=== PATIENT | female | born 1955 | race Caucasian/White ===

== ENCOUNTER → 2018-01-22 12:26 | Outpatient (CLI) | payer MEDICARE, MEDICAID, SELFPAY ==
[2018-01-22 13:21] LABS: Hematocrit 46.8 % (36-46); Hemoglobin 15.6 g/dL (12.0-16.0); Mean Corpuscular HGB Conc 33.4 % (30-36); Mean Corpuscular Hemoglobin 28.4 PG (26-34); Mean Corpuscular Volume 85.2 fL (80-100); Platelet Count 492 X10^3/uL (150-400); Red Blood Cell Count 5.49 X10^6/uL (4.0-5.2); Red Cell Distribution Width 13.9 % (11.6-14.8)
[2018-01-22 13:27] LABS: Add Manual Diff / Slide Review YES
[2018-01-22 13:44] LABS: White Blood Cell Count 31.9 X10^3/uL (4.5-11.0)
[2018-01-22 13:47] LABS: Neutrophils Absolute Manual 26158 /uL (3000-5900); Total Cells Counted 100
[2018-01-22 13:48] LABS: Morphology Comment Normal Morphology
[2018-01-22 13:56] LABS: Alanine Aminotransferase 48 IU/L (9-52); Albumin Globulin Ratio 0.8 (1.0-2.8); Alkaline Phosphatase 120 U/L (38-126); Amylase 32 U/L (30-110); Aspartate Aminotransferase 46 IU/L (14-36); BUN Creatinine Ratio 30.9 (6-22); Bilirubin Total 0.5 mg/dL (0.2-1.3); Calcium 9.2 mg/dL (8.4-10.2); Estimated Glomerular Filt Rate 50.3 mL/min (>60); Globulin 3.6 g/dL (1.7-4.1); Glucose 105 mg/dL (80-110); HDL Cholesterol 31 mg/dL (40-60); Lipase 93 U/L (23-300); Potassium 3.8 mmol/L (3.4-5.1); Sodium 130 mmol/L (137-145); Total Protein 6.6 g/dL (6.3-8.2); Triglycerides 94 mg/dL (35-150)
[2018-01-22 14:04] LABS: HEMOLYSIS < 15 (0-50)
[2018-01-22 14:08] LABS: Cholesterol < 50 mg/dL (140-199); LDL Cholesterol Calculated 0 mg/dL (<100)
== END ==
PROVIDERS: Visit Provider Physician Assistant
DX: G43.A0 Cyclical vomiting, in migraine, not intractable (principal); I10 Essential (primary) hypertension; L03.031 Cellulitis of right toe
CPT/HCPCS: 36415; 80053; 80061; 82150; 83690; 85025; 85730

== ENCOUNTER 2018-01-27 14:45 | Emergency (ER) | payer MEDICARE, MEDICAID, SELFPAY ==
[2018-01-22 21:00] VITALS: BMI 14.1
[2018-01-27 14:58] VITALS: BP 99/78; PULSE 95; RESP 20; TEMP 36.9; O2SAT 96; BMI 14.1
--- NOTE | 2018-01-27 15:04 | ED.ABDPAIN ---
HPI - Abdominal Pain General Chief Complaint: Abdominal Pain Stated Complaint: nausea/diarrhea Time Seen by Provider: 01/27/18 14:51 Source: patient Mode of arrival: wheelchair Limitations: no limitations History of Present Illness HPI narrative: 62-year-old female was just discharged from the hospital 2 days ago after being admitted for cellulitis. Is currently on Levaquin. She states that for several weeks now she has had GI problems to include decreased appetite, vomiting and abdominal pain. This was addressed somewhat in the discharge summary however it does state that while the patient was here she was tolerating oral intake. Patient states that she is here because this morning she had breakfast which states that made her stomach hurt which she describes as ???being hungry ???she states that she cannot eat more because it then makes her nauseous and then sometimes throws up. Related Data Home Medications Medication Instructions Recorded Confirmed phenytoin sodium extended 200 mg PO QDAY #0 05/30/17 01/22/18 [Dilantin Extended] aspirin 325 mg PO QDAY #0 11/05/17 01/22/18 bisacodyl 10 mg MN PRN PRN #0 12/06/17 01/22/18 bisacodyl [Fleet Laxative] 10 mg PO PRN PRN #0 12/06/17 01/22/18 docusate sodium 100 mg PO Q12HP PRN #0 12/06/17 01/22/18 magnesium hydroxide [Milk Of 30 ml PO PRN PRN #0 12/06/17 01/22/18 Magnesia Concentrated] nicotine (polacrilex) [Nicorette] 4 mg PO Q2HP PRN #0 12/06/17 01/22/18 sennosides [senna] 8.6 mg PO Q12HP #0 12/06/17 01/22/18 sodium phosphates [Fleet Enema] 1 ea MN PRN PRN #0 12/06/17 01/22/18 hydrocodone-acetaminophen [Edmonds] 1 tab PO Q4HP PRN 01/22/18 01/22/18 lorazepam [Ativan] 0.5 mg PO TIDP PRN 01/22/18 01/22/18 metoprolol succinate 200 mg PO DAILY 01/22/18 01/22/18 Previous Rx's Medication Instructions Recorded atorvastatin [Lipitor] 20 mg PO HS #30 tab 12/08/17 furosemide [Lasix] 20 mg PO QDAY #30 tab 12/08/17 prednisone 40 mg PO QDAY #90 tab 12/08/17 tiotropium bromide [Spiriva with 18 mcg INH QDAY #30 carolynn 12/08/17 HandiHaler] warfarin [Coumadin] 1 mg PO QDAY@1700 #30 tab 12/08/17 clopidogrel [Plavix] 75 mg PO DAILY #30 tab 01/25/18 levofloxacin 500 mg PO Q24H 7 Days #7 tab 01/25/18 ondansetron [Zofran ODT] 4 mg PO Q6H PRN #7 tab 01/27/18 Allergies Allergy/AdvReac Type Severity Reaction Status Date / Time Sulfa (Sulfonamide Allergy Intermediate PRICKLY Verified 01/22/18 15:07 Antibiotics) FEELING ON [SULFA (SULFONAMIDE HER HEAD ANTIBIOTICS)] Penicillins [PENICILLINS] Allergy Unknown RASH Verified 01/22/18 15:07 ANTIBIOTICS Allergy Mild PRICKLY Uncoded 01/22/18 15:07 FEELING ON HER HEAD Review of Systems Constitutional Denies chills, Denies fever(s), Denies lethargy and Denies weakness Gastrointestinal Gastrointestinal: Reports abdominal pain, Denies melena, Denies constipation, Denies heartburn, Reports nausea and Reports vomiting Genitourinary Denies dysuria Musculoskeletal Comments: Infection to her residual left leg has improved Does have pain to her right foot with secondary to the known infection there Neurologic Denies weakness [facility] Medical History 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 Mother No problems noted. Social History household members: spouse lives independently: Yes caregiver/support person: Yes other: She says she quit smoking today Smoking Status: Current every day smoker Exam Initial Vital Signs Initial Vital Signs: Vital Signs Temperature 98.5 F 01/27/18 14:58 Pulse Rate 95 H 01/27/18 14:58 Respiratory Rate 20 01/27/18 14:58 Blood Pressure 99/78 01/27/18 14:58 Pulse Oximetry 96 01/27/18 14:58 Resp Effort & Inspection: normal respiratory effort, able to speak in complete sentences, no respiratory distress and no use of accessory muscles Auscultation: clear to auscultation bilaterally, no rales, no rhonchi and no wheezes Cardio Rate: regular rate Rhythm: regular rhythm Heart Sounds: no click, no gallops, no murmurs and no rubs Pulses: normal peripheral pulses GI Inspection: non-distended Palpation: soft, no hepatosplenomegaly, No guarding, No pulsatile mass and No tender Auscultation: normal bowel sounds Skin Other: Distal portion of left residual limb looks well. Nontender. No redness Patient with bandage over her right toes with redness of the surrounding skin consistent with her cellulitis history Neuro General: alert, awake and oriented x3 Cognition: normal cognition Speech: speech normal Extrem Other: Left-sided [id number] amputation Course Orders Ordered: ED Orders 01/27/18 15:18 Complete Blood Count AUTO DIFF Stat Comprehensive Metabolic Panel Stat Lipase Stat Sodium Chloride (Normal Saline 0.9%) 1,000 mls @ 150 mls/hr IV CONT SHE Last Admin: 01/27/18 15:26 Dose: 150 mls/hr Ondansetron HCl (Zofran) 4 mg IV NOW PRN PRN Reason: Nausea And Vomiting Vital Signs - 8 hr 01/27/18 14:58 01/27/18 15:31 01/27/18 16:35 Temperature 98.5 F Pulse Rate 95 H 101 H 94 H Respiratory Rate 20 20 23 Blood Pressure 99/78 Blood Pressure [Right Arm] 103/75 102/74 Pulse Oximetry 96 100 96 01/27/18 17:24 Temperature Pulse Rate 94 H Respiratory Rate 10 L Blood Pressure Blood Pressure [Right Arm] 90/61 Pulse Oximetry 97 MDM - Abdominal Pain Lab Data Attestation: I reviewed the patient's lab results. Result diagrams: 01/27/18 15:18 01/27/18 15:18 Lab Results 05/20/18 05/20/18 Range/Units 15:18 15:18 WBC 18.0 H (4.5-11.0) X10^3/uL RBC 4.61 (4.0-5.2) X10^6/uL Hgb 13.4 (12.0-16.0) g/dL Hct 39.1 (36-46) % MCV 84.9 (80-100) fL MCH 29.1 (26-34) PG MCHC 34.3 (30-36) % RDW 14.2 (11.6-14.8) % Plt Count 531 H (150-400) X10^3/uL Neut % (Auto) 76.6 H (50-75) % Lymph % (Auto) 15.7 L (25-40) % [place] % (Auto) 6.4 (3-14) % Eos % (Auto) 0.6 L (2-4) % Baso % (Auto) 0.7 (0-2) % Neut # (Auto) 99005 H (5401-7389) /uL Sodium 133 L (137-145) mmol/L Potassium 4.2 (3.4-5.1) mmol/L Chloride 102.0 (98-107) mmol/L Carbon Dioxide 23.0 (22-32) mmol/L BUN 11.0 (7-17) mg/dL Creatinine 0.50 L (0.52-1.04) mg/dL Estimated GFR > 60.0 (>60) mL/min BUN/Creatinine Ratio 22.0 (6-22) Glucose 89 (80-110) mg/dL Calcium 8.0 L (8.4-10.2) mg/dL Total Bilirubin 0.5 (0.2-1.3) mg/dL AST 45 H (14-36) IU/L ALT 40 (9-52) IU/L Alkaline Phosphatase 120 (38-126) U/L Total Protein 6.1 L (6.3-8.2) g/dL Albumin 2.6 L (3.5-5.0) g/dL Globulin 3.5 (1.7-4.1) g/dL Albumin/Globulin Ratio 0.7 L (1.0-2.8) Lipase 106 (23-300) U/L [facility] Narrative Medical decision making narrative: White blood cell count improving. Patient currently on Levaquin. The rest of her labs are either improved for the same as her recent hospital admission. Patient's heart rate improved with fluids. Doubt sepsis. Patient is not currently on any anti nausea medication. I suspect that her GI symptoms are not acute in nature. She has also been drinking ensures which I am uncertain if she is replacing her meals with these or if she is doing this in addition to her meals. We discussed the importance of eating a regular diet as well as doing the insured. We discussed the importance of continuing her antibiotics because of the infection that she has. Will send home with a anti nausea medication. She has a follow-up with her primary doctor on Sunday this week. She was given return precautions. She expressed understanding and agreement with plan Discharge Plan Departure Patient Disposition: Home, Self-Care Clinical Impression: Nausea Instructions: DI for Nausea -- Adult Activity Restrictions/Additional Instructions: Continue all of your medications as instructed. Call your primary doctor tomorrow to discuss her symptoms and to confirm your appointment time for Sunday. Make sure you are eating a regular diet along with the ensure as a meal supplement. Return to the emergency department for any new or worsening symptoms Prescriptions: New ondansetron [Zofran ODT] 4 mg tablet,disintegrating 4 mg PO Q6H PRN (Reason: nausea and vomiting) Qty: 7 RF: 0 No Action phenytoin sodium extended [Dilantin Extended] 100 MG capsule 200 mg PO QDAY Qty: 0 RF: 0 aspirin 325 MG tablet,delayed release (DR/EC) 325 mg PO QDAY Qty: 0 RF: 0 nicotine (polacrilex) [Nicorette] 4 MG gum 4 mg PO Q2HP PRN (Reason: Smoking Cessation) Qty: 0 RF: 0 sennosides [senna] 8.6 MG tablet 8.6 mg PO Q12HP Qty: 0 RF: 0 docusate sodium 100 MG tablet 100 mg PO Q12HP PRN (Reason: Constipation) Qty: 0 RF: 0 sodium phosphates [Fleet Enema] 133 ML enema 1 ea MN PRN PRN (Reason: Constipation) Qty: 0 RF: 0 bisacodyl [Fleet Laxative] 5 MG tablet,delayed release (DR/EC) 10 mg PO PRN PRN (Reason: Constipation) Qty: 0 RF: 0 bisacodyl 10 MG suppository 10 mg MN PRN PRN (Reason: Constipation) Qty: 0 RF: 0 magnesium hydroxide [Milk Of Magnesia Concentrated] 2,400 MG/10 ML suspension 30 ml PO PRN PRN (Reason: Constipation) Qty: 0 RF: 0 atorvastatin [Lipitor] 20 MG tablet 20 mg PO HS Qty: 30 RF: 0 furosemide [Lasix] 20 MG tablet 20 mg PO QDAY Qty: 30 RF: 0 warfarin [Coumadin] 1 MG tablet 1 mg PO QDAY@1700 Qty: 30 RF: 0 tiotropium bromide [Spiriva with HandiHaler] 18 MCG capsule, w/inhalation device 18 mcg INH QDAY Qty: 30 RF: 0 prednisone 10 MG tablet 40 mg PO QDAY Qty: 90 RF: 0 metoprolol succinate 50 mg tablet extended release 24 hr 200 mg PO DAILY RF: 0 hydrocodone-acetaminophen [Edmonds] 5 MG/325 MG tablet 1 tab PO Q4HP PRN (Reason: Pain, Moderate) RF: 0 lorazepam [Ativan] 0.5 MG tablet 0.5 mg PO TIDP PRN (Reason: Anxiety) RF: 0 clopidogrel [Plavix] 75 mg Tablet 75 mg PO DAILY Qty: 30 RF: 0 levofloxacin 500 mg tablet 500 mg PO Q24H 7 Days Qty: 7 RF: 0
[2018-01-27] MEDS: SODIUM CHLORIDE 0.9% 1,000 ML 150 ML IV (15:26)
[2018-01-27 15:28] LABS: Add Manual Diff / Slide Review NO; Basophils Percent Auto 0.7 % (0-2); Eosinophils Percent Auto 0.6 % (2-4); Hematocrit 39.1 % (36-46); Hemoglobin 13.4 g/dL (12.0-16.0); Lymphocytes Percent Auto 15.7 % (25-40); Mean Corpuscular HGB Conc 34.3 % (30-36); Mean Corpuscular Hemoglobin 29.1 PG (26-34); Mean Corpuscular Volume 84.9 fL (80-100); Monocytes Percent Auto 6.4 % (3-14); Neutrophils Absolute Auto 13800 /uL (3000-5900); Neutrophils Percent Auto 76.6 % (50-75); Platelet Count 531 X10^3/uL (150-400); Red Blood Cell Count 4.61 X10^6/uL (4.0-5.2); Red Cell Distribution Width 14.2 % (11.6-14.8)
[2018-01-27 15:31] VITALS: BP 103/75; PULSE 101; RESP 20; O2SAT 100
[2018-01-27 15:42] LABS: Alanine Aminotransferase 40 IU/L (9-52); Albumin 2.6 g/dL (3.5-5.0); Albumin Globulin Ratio 0.7 (1.0-2.8); Alkaline Phosphatase 120 U/L (38-126); Aspartate Aminotransferase 45 IU/L (14-36); Bilirubin Total 0.5 mg/dL (0.2-1.3); Estimated Glomerular Filt Rate > 60.0 mL/min (>60); Globulin 3.5 g/dL (1.7-4.1); Glucose 89 mg/dL (80-110); HEMOLYSIS 68 (0-50); Lipase 106 U/L (23-300); Potassium 4.2 mmol/L (3.4-5.1); Sodium 133 mmol/L (137-145); Total Protein 6.1 g/dL (6.3-8.2)
--- NOTE | 2018-01-27 15:46 | PC.NURSE ---
pt reports, after eating she gets nausea and vomiting, she gets hungry, drinks ensure then she would have diarrhea. denies fever. symptoms treated with tums at home denies abdominal pain at this time, denies chest pain, denies uti sxs, has chronic congested cough, denies furthur smoking. hx of left above the knee amputation , last november 12-. due to poor circulation from smoking per pt. hx of cva with left arm deficit. pt do report pain right foot with cellulitis. right foot with redness and swelling, arrived with clean and intact dressing.
[2018-01-27 16:35] VITALS: BP 102/74; PULSE 94; RESP 23; O2SAT 96
--- NOTE | 2018-01-27 17:17 | PC.NURSE ---
PT GIVEN WATER FOR PO CHALLENGE.
[2018-01-27 17:24] VITALS: BP 90/61; PULSE 94; RESP 10; O2SAT 97
== END 2018-01-27 18:02 | disposition home or self-care (01) ==
PROVIDERS: Emergency Provider Emergency Medicine; Family Provider Physician Assistant; PCP Physician Assistant
DX: R11.2 Nausea with vomiting, unspecified (principal)
CPT/HCPCS: 36591; 80053; 83690; 85025; 96360; 96361; 99283; 99284

== ENCOUNTER 2018-01-30 08:21 | Emergency (ER) | payer MEDICARE, MEDICAID, SELFPAY ==
[2018-01-22 21:00] VITALS: BMI 14.1
[2018-01-30] VITALS (8 sets, daily range): BP systolic 86–111; BP diastolic 52–70; PULSE 102–118; RESP 16–26; TEMP 36.6; O2SAT 96–100
--- NOTE | 2018-01-30 09:02 | ED.SKABFB ---
HPI - Skin/Abscess/Foreign Bdy General Chief complaint: Skin/Abscess/Foreign Body Stated complaint: PT STATES CELLULITIS IN RIGHT 2ND TOE Time Seen by Provider: 01/30/18 08:51 History of Present Illness HPI narrative: [address] Rhonda Iverson presenting with complaints of R 2nd toe cellulitis worsening over last 3 days with increased pain. Denies associated fever. Patient has been given 7 days of levaquin, and she is on day 4. She is a chronic smoker and has been being treated with zofran for episodes of nausea. Today she would also like a refill. Related Data Home Medications Medication Instructions Recorded Confirmed phenytoin sodium extended 200 mg PO QDAY #0 05/30/17 01/22/18 [Dilantin Extended] aspirin 325 mg PO QDAY #0 11/05/17 01/22/18 bisacodyl 10 mg CO PRN PRN #0 12/06/17 01/22/18 bisacodyl [Fleet Laxative] 10 mg PO PRN PRN #0 12/06/17 01/22/18 docusate sodium 100 mg PO Q12HP PRN #0 12/06/17 01/22/18 magnesium hydroxide [Milk Of 30 ml PO PRN PRN #0 12/06/17 01/22/18 Magnesia Concentrated] nicotine (polacrilex) [Nicorette] 4 mg PO Q2HP PRN #0 12/06/17 01/22/18 sennosides [senna] 8.6 mg PO Q12HP #0 12/06/17 01/22/18 sodium phosphates [Fleet Enema] 1 ea CO PRN PRN #0 12/06/17 01/22/18 hydrocodone-acetaminophen [Dorr] 1 tab PO Q4HP PRN 01/22/18 01/22/18 lorazepam [Ativan] 0.5 mg PO TIDP PRN 01/22/18 01/22/18 metoprolol succinate 200 mg PO DAILY 01/22/18 01/22/18 Previous Rx's Medication Instructions Recorded atorvastatin [Lipitor] 20 mg PO HS #30 tab 12/08/17 furosemide [Lasix] 20 mg PO QDAY #30 tab 12/08/17 prednisone 40 mg PO QDAY #90 tab 12/08/17 tiotropium bromide [Spiriva with 18 mcg INH QDAY #30 carolynn 12/08/17 HandiHaler] warfarin [Coumadin] 1 mg PO QDAY@1700 #30 tab 12/08/17 clopidogrel [Plavix] 75 mg PO DAILY #30 tab 01/25/18 levofloxacin 500 mg PO Q24H 7 Days #7 tab 01/25/18 ondansetron [Zofran ODT] 4 mg PO Q6H PRN #7 tab 01/27/18 clindamycin HCl 300 mg PO TID 7 Days #21 cap 01/30/18 ondansetron HCl [Zofran] 4 mg PO Q6H PRN #10 tab 01/30/18 Allergies Allergy/AdvReac Type Severity Reaction Status Date / Time Sulfa (Sulfonamide Allergy Intermediate PRICKLY Verified 01/30/18 08:41 Antibiotics) FEELING ON [SULFA (SULFONAMIDE HER HEAD ANTIBIOTICS)] Penicillins [PENICILLINS] Allergy Unknown RASH Verified 01/30/18 08:41 ANTIBIOTICS Allergy Mild PRICKLY Uncoded 01/30/18 08:41 FEELING ON HER HEAD Review of Systems Review of Systems All systems reviewed & are unremarkable except as noted in HPI and below Constitutional Denies chills, Denies fever(s), Denies lethargy and Denies weakness Cardiovascular Denies chest pain, Denies irregular heart rhythm, Denies lightheadedness, Denies palpitations, Denies dyspnea, Denies dyspnea on exertion and Denies orthopnea Respiratory Denies cough, Denies dyspnea, Denies dyspnea on exertion and Denies wheezing Gastrointestinal Gastrointestinal: Denies abdominal pain, Denies change in bowel habits, Denies diarrhea, Reports nausea and Denies vomiting Integumentary/Breasts Reports sores and Reports wounds Neurologic Denies weakness Endocrine Denies palpitations Hematologic/Lymphatic Denies easy bruising Allergic/Immunologic Denies wheezing [facility] Medical History 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 Mother No problems noted. Social History household members: spouse lives independently: Yes caregiver/support person: Yes other: She says she quit smoking today Smoking Status: Current every day smoker Exam Initial Vital Signs Initial Vital Signs: Vital Signs Temperature 97.8 F 01/30/18 08:37 Pulse Rate 118 H 01/30/18 08:37 Respiratory Rate 16 01/30/18 08:37 Blood Pressure 111/65 01/30/18 08:37 Pulse Oximetry 96 01/30/18 08:37 Const General: cooperative Nutritional Appearance: underweight Orientation: alert, awake, oriented x3 and not confused Chest Chest: normal inspection of the chest Resp Effort & Inspection: normal respiratory effort, able to speak in complete sentences, no respiratory distress and no use of accessory muscles Auscultation: no rales, no rhonchi, no wheezes and rub present Tactile Fremitus: tactile fremitus present Cardio Rate: regular rate and tachycardic Rhythm: regular rhythm Heart Sounds: no click, no gallops, no murmurs and no rubs Pulses: other (4+ pitting edema R LE. Patient as L AKA; ) Skin General: No jaundice and No petechiae Other: 2nd toe on R foot swollen and erythematous. Tenderness on toe and distal foot. Patient has area of erythema on lateral 5th toe. No fluctuance, or drainable abscess on exam. Neuro General: alert, oriented x3, gait normal and no focal motor deficits Speech: speech normal Course Orders Ordered: ED Orders 01/30/18 09:30 Basic Metabolic Panel Stat Bilirubin Total Stat Complete Blood Count AUTO DIFF Stat Lactate (Lactic Acid) Stat Procalcitonin Stat 01/30/18 09:54 Blood Culture Stat Acetaminophen (Tylenol) 650 mg PO NOW ONE Stop: 01/30/18 11:18 Sodium Chloride (Normal Saline 0.9%) 500 mls @ 1,000 mls/hr IV BOLUS PRN PRN Reason: Fluid replacement Last Infusion: 01/30/18 10:24 Dose: 0 mls/hr Infusion: 01/30/18 10:14 Dose: 1,000 mls/hr Infusion: 01/30/18 10:00 Dose: 0 mls/hr Admin: 05/23/18 09:35 Dose: 1,000 mls/hr Discontinued Medications Clindamycin HCl (Cleocin) 300 mg PO NOW ONE Stop: 01/30/18 11:10 Vital Signs - 8 hr 01/30/18 08:37 01/30/18 09:10 01/30/18 09:30 Temperature 97.8 F Pulse Rate 118 H 107 H Respiratory Rate 16 20 Blood Pressure 111/65 Blood Pressure [Right Arm] 86/52 L Pulse Oximetry 96 96 01/30/18 09:39 01/30/18 10:00 01/30/18 10:15 Temperature Pulse Rate 106 H Respiratory Rate Blood Pressure Blood Pressure [Right Arm] 92/59 L 96/70 Pulse Oximetry 96 MDM - Skin/Abscess/Foreign Bdy Medical Records Attestation: I reviewed the patient's medical records. Lab Data Attestation: I reviewed the patient's lab results. Labs reviewed. No acute abnormalities requiring urgent intervention at this time. Result diagrams: 01/30/18 09:30 01/30/18 09:30 Lab Results 01/30/18 01/30/18 01/30/18 Range/Units 09:30 09:30 09:30 WBC 11.8 H (4.5-11.0) X10^3/uL RBC 4.24 (4.0-5.2) X10^6/uL Hgb 12.4 (12.0-16.0) g/dL Hct 36.6 (36-46) % MCV 86.4 (80-100) fL MCH 29.1 (26-34) PG MCHC 33.7 (30-36) % RDW 14.7 (11.6-14.8) % Plt Count 661 H (150-400) X10^3/uL Neut % (Auto) 72.0 (50-75) % Lymph % (Auto) 17.4 L (25-40) % [place] % (Auto) 8.7 (3-14) % Eos % (Auto) 0.9 L (2-4) % Baso % (Auto) 1.0 (0-2) % Neut # (Auto) 8500 H (2084-9097) /uL Sodium 137 (137-145) mmol/L Potassium 4.0 (3.4-5.1) mmol/L Chloride 102.0 (98-107) mmol/L Carbon Dioxide 27.0 (22-32) mmol/L BUN 12.0 (7-17) mg/dL Creatinine 0.50 L (0.52-1.04) mg/dL Estimated GFR > 60.0 (>60) mL/min BUN/Creatinine Ratio 24.0 H (6-22) Glucose 97 (80-110) mg/dL Lactate (0.7-2.1) mmol/L Calcium 8.3 L (8.4-10.2) mg/dL Total Bilirubin 0.3 (0.2-1.3) mg/dL Procalcitonin < 0.05 (<0.5) ng/mL 01/30/18 Range/Units 09:30 WBC (4.5-11.0) X10^3/uL RBC (4.0-5.2) X10^6/uL Hgb (12.0-16.0) g/dL Hct (36-46) % MCV (80-100) fL MCH (26-34) PG MCHC (30-36) % RDW (11.6-14.8) % Plt Count (150-400) X10^3/uL Neut % (Auto) (50-75) % Lymph % (Auto) (25-40) % [place] % (Auto) (3-14) % Eos % (Auto) (2-4) % Baso % (Auto) (0-2) % Neut # (Auto) (7501-4001) /uL Sodium (137-145) mmol/L Potassium (3.4-5.1) mmol/L Chloride (98-107) mmol/L Carbon Dioxide (22-32) mmol/L BUN (7-17) mg/dL Creatinine (0.52-1.04) mg/dL Estimated GFR (>60) mL/min BUN/Creatinine Ratio (6-22) Glucose (80-110) mg/dL Lactate 1.3 (0.7-2.1) mmol/L Calcium (8.4-10.2) mg/dL Total Bilirubin (0.2-1.3) mg/dL Procalcitonin (<0.5) ng/mL [facility] Narrative Medical decision making narrative: Patient with PVD with recurrent cellutitis on R 2nd toe here for worsening pain despite taking antibiotics. Screened for sepsis, labs negative for elevated WBC. Remaining labs at patient's baseline. Recent XR of foot on 01/24 does not need repeating today. Patient stable for continued outpatient management. Should follow up with wound clinic as appointed. Due to patient's allergy profile, will add clindamycin for continued outpatient management. Patient stable for discharge. Discharge Plan Departure Patient Disposition: Home, Self-Care Clinical Impression: Cellulitis of toe of right foot, Nausea Instructions: Cellulitis Activity Restrictions/Additional Instructions: Take all antibiotics as prescribed to completion. Follow up as planned. Prescriptions: New clindamycin HCl 300 mg capsule 300 mg PO TID 7 Days Qty: 21 RF: 0 ondansetron HCl [Zofran] 4 mg tablet 4 mg PO Q6H PRN (Reason: nausea) Qty: 10 RF: 0 No Action phenytoin sodium extended [Dilantin Extended] 100 MG capsule 200 mg PO QDAY Qty: 0 RF: 0 aspirin 325 MG tablet,delayed release (DR/EC) 325 mg PO QDAY Qty: 0 RF: 0 nicotine (polacrilex) [Nicorette] 4 MG gum 4 mg PO Q2HP PRN (Reason: Smoking Cessation) Qty: 0 RF: 0 sennosides [senna] 8.6 MG tablet 8.6 mg PO Q12HP Qty: 0 RF: 0 docusate sodium 100 MG tablet 100 mg PO Q12HP PRN (Reason: Constipation) Qty: 0 RF: 0 sodium phosphates [Fleet Enema] 133 ML enema 1 ea CO PRN PRN (Reason: Constipation) Qty: 0 RF: 0 bisacodyl [Fleet Laxative] 5 MG tablet,delayed release (DR/EC) 10 mg PO PRN PRN (Reason: Constipation) Qty: 0 RF: 0 bisacodyl 10 MG suppository 10 mg CO PRN PRN (Reason: Constipation) Qty: 0 RF: 0 magnesium hydroxide [Milk Of Magnesia Concentrated] 2,400 MG/10 ML suspension 30 ml PO PRN PRN (Reason: Constipation) Qty: 0 RF: 0 atorvastatin [Lipitor] 20 MG tablet 20 mg PO HS Qty: 30 RF: 0 furosemide [Lasix] 20 MG tablet 20 mg PO QDAY Qty: 30 RF: 0 warfarin [Coumadin] 1 MG tablet 1 mg PO QDAY@1700 Qty: 30 RF: 0 tiotropium bromide [Spiriva with HandiHaler] 18 MCG capsule, w/inhalation device 18 mcg INH QDAY Qty: 30 RF: 0 prednisone 10 MG tablet 40 mg PO QDAY Qty: 90 RF: 0 metoprolol succinate 50 mg tablet extended release 24 hr 200 mg PO DAILY RF: 0 hydrocodone-acetaminophen [Dorr] 5 MG/325 MG tablet 1 tab PO Q4HP PRN (Reason: Pain, Moderate) RF: 0 lorazepam [Ativan] 0.5 MG tablet 0.5 mg PO TIDP PRN (Reason: Anxiety) RF: 0 clopidogrel [Plavix] 75 mg Tablet 75 mg PO DAILY Qty: 30 RF: 0 levofloxacin 500 mg tablet 500 mg PO Q24H 7 Days Qty: 7 RF: 0 ondansetron [Zofran ODT] 4 mg tablet,disintegrating 4 mg PO Q6H PRN (Reason: nausea and vomiting) Qty: 7 RF: 0 Referrals: Elizabeth Edwards PA-C [Primary Care Provider] -
--- NOTE | 2018-01-30 09:34 | PC.NURSE ---
spouse reports, right foot redness and swelling for couple of weeks, treated with levaquin, has been 9 days, but not better increase swelling and redness, pain with ambulation, no pain at rest. states, appt with dr michele in 05 of february, needing referral with wound care. concern due to similar sxs on the left foot and got amputated.
[2018-01-30] MEDS: SODIUM CHLORIDE 0.9% 500 ML 1000 ML IV (09:35)
[2018-01-30 09:40] LABS: Add Manual Diff / Slide Review NO; Eosinophils Percent Auto 0.9 % (2-4); Hematocrit 36.6 % (36-46); Hemoglobin 12.4 g/dL (12.0-16.0); Lymphocytes Percent Auto 17.4 % (25-40); Mean Corpuscular HGB Conc 33.7 % (30-36); Mean Corpuscular Hemoglobin 29.1 PG (26-34); Mean Corpuscular Volume 86.4 fL (80-100); Monocytes Percent Auto 8.7 % (3-14); Neutrophils Absolute Auto 8500 /uL (3000-5900); Platelet Count 661 X10^3/uL (150-400); Red Blood Cell Count 4.24 X10^6/uL (4.0-5.2); Red Cell Distribution Width 14.7 % (11.6-14.8); White Blood Cell Count 11.8 X10^3/uL (4.5-11.0)
[2018-01-30 09:55] LABS: Bilirubin Total 0.3 mg/dL (0.2-1.3); Calcium 8.3 mg/dL (8.4-10.2); Estimated Glomerular Filt Rate > 60.0 mL/min (>60); Glucose 97 mg/dL (80-110); HEMOLYSIS < 15 (0-50); Sodium 137 mmol/L (137-145)
[2018-01-30 09:56] LABS: Lactate (Lactic Acid) 1.3 mmol/L (0.7-2.1)
--- NOTE | 2018-01-30 10:01 | PC.NURSE ---
by susana mccormick tech
[2018-01-30 10:18] LABS: Procalcitonin < 0.05 ng/mL (<0.5)
--- NOTE | 2018-01-30 11:16 | ED_ITS ---
HPI - Skin/Abscess/Foreign Bdy General Chief complaint: Skin/Abscess/Foreign Body Stated complaint: PT STATES CELLULITIS IN RIGHT 2ND TOE Time Seen by Provider: 01/30/18 08:51 History of Present Illness HPI narrative: [address] Rhonda Iverson presenting with complaints of R 2nd toe cellulitis worsening over last 3 days with increased pain. Denies associated fever. Patient has been given 7 days of levaquin, and she is on day 4. She is a chronic smoker and has been being treated with zofran for episodes of nausea. Today she would also like a refill. Related Data Home Medications Medication Instructions Recorded Confirmed phenytoin sodium extended 200 mg PO QDAY #0 05/30/17 01/22/18 [Dilantin Extended] aspirin 325 mg PO QDAY #0 11/05/17 01/22/18 bisacodyl 10 mg MT PRN PRN #0 12/06/17 01/22/18 bisacodyl [Fleet Laxative] 10 mg PO PRN PRN #0 12/06/17 01/22/18 docusate sodium 100 mg PO Q12HP PRN #0 12/06/17 01/22/18 magnesium hydroxide [Milk Of 30 ml PO PRN PRN #0 12/06/17 01/22/18 Magnesia Concentrated] nicotine (polacrilex) [Nicorette] 4 mg PO Q2HP PRN #0 12/06/17 01/22/18 sennosides [senna] 8.6 mg PO Q12HP #0 12/06/17 01/22/18 sodium phosphates [Fleet Enema] 1 ea MT PRN PRN #0 12/06/17 01/22/18 hydrocodone-acetaminophen [[place]] 1 tab PO Q4HP PRN 01/22/18 01/22/18 lorazepam [Ativan] 0.5 mg PO TIDP PRN 01/22/18 01/22/18 metoprolol succinate 200 mg PO DAILY 01/22/18 01/22/18 Previous Rx's Medication Instructions Recorded atorvastatin [Lipitor] 20 mg PO HS #30 tab 12/08/17 furosemide [Lasix] 20 mg PO QDAY #30 tab 12/08/17 prednisone 40 mg PO QDAY #90 tab 12/08/17 tiotropium bromide [Spiriva with 18 mcg INH QDAY #30 carolynn 12/08/17 HandiHaler] warfarin [Coumadin] 1 mg PO QDAY@1700 #30 tab 12/08/17 clopidogrel [Plavix] 75 mg PO DAILY #30 tab 01/25/18 levofloxacin 500 mg PO Q24H 7 Days #7 tab 01/25/18 ondansetron [Zofran ODT] 4 mg PO Q6H PRN #7 tab 01/27/18 clindamycin HCl 300 mg PO TID 7 Days #21 cap 01/30/18 ondansetron HCl [Zofran] 4 mg PO Q6H PRN #10 tab 01/30/18 Allergies Allergy/AdvReac Type Severity Reaction Status Date / Time Sulfa (Sulfonamide Allergy Intermediate PRICKLY Verified 01/30/18 08:41 Antibiotics) FEELING ON [SULFA (SULFONAMIDE HER HEAD ANTIBIOTICS)] Penicillins [PENICILLINS] Allergy Unknown RASH Verified 01/30/18 08:41 ANTIBIOTICS Allergy Mild PRICKLY Uncoded 01/30/18 08:41 FEELING ON HER HEAD Review of Systems Review of Systems All systems reviewed & are unremarkable except as noted in HPI and below Constitutional Denies chills, Denies fever(s), Denies lethargy and Denies weakness Cardiovascular Denies chest pain, Denies irregular heart rhythm, Denies lightheadedness, Denies palpitations, Denies dyspnea, Denies dyspnea on exertion and Denies orthopnea Respiratory Denies cough, Denies dyspnea, Denies dyspnea on exertion and Denies wheezing Gastrointestinal Gastrointestinal: Denies abdominal pain, Denies change in bowel habits, Denies diarrhea, Reports nausea and Denies vomiting Integumentary/Breasts Reports sores and Reports wounds Neurologic Denies weakness Endocrine Denies palpitations Hematologic/Lymphatic Denies easy bruising Allergic/Immunologic Denies wheezing [facility] Medical History 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 Mother No problems noted. Social History household members: spouse lives independently: Yes caregiver/support person: Yes other: She says she quit smoking today Smoking Status: Current every day smoker Exam Initial Vital Signs Initial Vital Signs: Vital Signs Temperature 97.8 F 01/30/18 08:37 Pulse Rate 118 H 01/30/18 08:37 Respiratory Rate 16 01/30/18 08:37 Blood Pressure 111/65 01/30/18 08:37 Pulse Oximetry 96 01/30/18 08:37 Const General: cooperative Nutritional Appearance: underweight Orientation: alert, awake, oriented x3 and not confused Chest Chest: normal inspection of the chest Resp Effort & Inspection: normal respiratory effort, able to speak in complete sentences, no respiratory distress and no use of accessory muscles Auscultation: no rales, no rhonchi, no wheezes and rub present Tactile Fremitus: tactile fremitus present Cardio Rate: regular rate and tachycardic Rhythm: regular rhythm Heart Sounds: no click, no gallops, no murmurs and no rubs Pulses: other (4+ pitting edema R LE. Patient as L AKA; ) Skin General: No jaundice and No petechiae Other: 2nd toe on R foot swollen and erythematous. Tenderness on toe and distal foot. Patient has area of erythema on lateral 5th toe. No fluctuance, or drainable abscess on exam. Neuro General: alert, oriented x3, gait normal and no focal motor deficits Speech: speech normal Course Orders Ordered: ED Orders 01/30/18 09:30 Basic Metabolic Panel Stat Bilirubin Total Stat Complete Blood Count AUTO DIFF Stat Lactate (Lactic Acid) Stat Procalcitonin Stat 01/30/18 09:54 Blood Culture Stat Acetaminophen (Tylenol) 650 mg PO NOW ONE Stop: 01/30/18 11:18 Sodium Chloride (Normal Saline 0.9%) 500 mls @ 1,000 mls/hr IV BOLUS PRN PRN Reason: Fluid replacement Last Infusion: 01/30/18 10:24 Dose: 0 mls/hr Infusion: 01/30/18 10:14 Dose: 1,000 mls/hr Infusion: 01/30/18 10:00 Dose: 0 mls/hr Admin: 05/23/18 09:35 Dose: 1,000 mls/hr Discontinued Medications Clindamycin HCl (Cleocin) 300 mg PO NOW ONE Stop: 01/30/18 11:10 Vital Signs - 8 hr 01/30/18 08:37 01/30/18 09:10 01/30/18 09:30 Temperature 97.8 F Pulse Rate 118 H 107 H Respiratory Rate 16 20 Blood Pressure 111/65 Blood Pressure [Right Arm] 86/52 L Pulse Oximetry 96 96 01/30/18 09:39 01/30/18 10:00 01/30/18 10:15 Temperature Pulse Rate 106 H Respiratory Rate Blood Pressure Blood Pressure [Right Arm] 92/59 L 96/70 Pulse Oximetry 96 MDM - Skin/Abscess/Foreign Bdy Medical Records Attestation: I reviewed the patient's medical records. Lab Data Attestation: I reviewed the patient's lab results. Labs reviewed. No acute abnormalities requiring urgent intervention at this time. Result diagrams: 01/30/18 09:30 01/30/18 09:30 Lab Results 01/30/18 01/30/18 01/30/18 Range/Units 09:30 09:30 09:30 WBC 11.8 H (4.5-11.0) X10^3/uL RBC 4.24 (4.0-5.2) X10^6/uL Hgb 12.4 (12.0-16.0) g/dL Hct 36.6 (36-46) % MCV 86.4 (80-100) fL MCH 29.1 (26-34) PG MCHC 33.7 (30-36) % RDW 14.7 (11.6-14.8) % Plt Count 661 H (150-400) X10^3/uL Neut % (Auto) 72.0 (50-75) % Lymph % (Auto) 17.4 L (25-40) % [place] % (Auto) 8.7 (3-14) % Eos % (Auto) 0.9 L (2-4) % Baso % (Auto) 1.0 (0-2) % Neut # (Auto) 8500 H (2001-4312) /uL Sodium 137 (137-145) mmol/L Potassium 4.0 (3.4-5.1) mmol/L Chloride 102.0 (98-107) mmol/L Carbon Dioxide 27.0 (22-32) mmol/L BUN 12.0 (7-17) mg/dL Creatinine 0.50 L (0.52-1.04) mg/dL Estimated GFR > 60.0 (>60) mL/min BUN/Creatinine Ratio 24.0 H (6-22) Glucose 97 (80-110) mg/dL Lactate (0.7-2.1) mmol/L Calcium 8.3 L (8.4-10.2) mg/dL Total Bilirubin 0.3 (0.2-1.3) mg/dL Procalcitonin < 0.05 (<0.5) ng/mL 01/30/18 Range/Units 09:30 WBC (4.5-11.0) X10^3/uL RBC (4.0-5.2) X10^6/uL Hgb (12.0-16.0) g/dL Hct (36-46) % MCV (80-100) fL MCH (26-34) PG MCHC (30-36) % RDW (11.6-14.8) % Plt Count (150-400) X10^3/uL Neut % (Auto) (50-75) % Lymph % (Auto) (25-40) % [place] % (Auto) (3-14) % Eos % (Auto) (2-4) % Baso % (Auto) (0-2) % Neut # (Auto) (7999-1934) /uL Sodium (137-145) mmol/L Potassium (3.4-5.1) mmol/L Chloride (98-107) mmol/L Carbon Dioxide (22-32) mmol/L BUN (7-17) mg/dL Creatinine (0.52-1.04) mg/dL Estimated GFR (>60) mL/min BUN/Creatinine Ratio (6-22) Glucose (80-110) mg/dL Lactate 1.3 (0.7-2.1) mmol/L Calcium (8.4-10.2) mg/dL Total Bilirubin (0.2-1.3) mg/dL Procalcitonin (<0.5) ng/mL [facility] Narrative Medical decision making narrative: Patient with PVD with recurrent cellutitis on R 2nd toe here for worsening pain despite taking antibiotics. Screened for sepsis, labs negative for elevated WBC. Remaining labs at patient's baseline. Recent XR of foot on 01/24 does not need repeating today. Patient stable for continued outpatient management. Should follow up with wound clinic as appointed. Due to patient's allergy profile, will add clindamycin for continued outpatient management. Patient stable for discharge. Discharge Plan Departure Patient Disposition: Home, Self-Care Clinical Impression: Cellulitis of toe of right foot, Nausea Instructions: Cellulitis Activity Restrictions/Additional Instructions: Take all antibiotics as prescribed to completion. Follow up as planned. Prescriptions: New clindamycin HCl 300 mg capsule 300 mg PO TID 7 Days Qty: 21 RF: 0 ondansetron HCl [Zofran] 4 mg tablet 4 mg PO Q6H PRN (Reason: nausea) Qty: 10 RF: 0 No Action phenytoin sodium extended [Dilantin Extended] 100 MG capsule 200 mg PO QDAY Qty: 0 RF: 0 aspirin 325 MG tablet,delayed release (DR/EC) 325 mg PO QDAY Qty: 0 RF: 0 nicotine (polacrilex) [Nicorette] 4 MG gum 4 mg PO Q2HP PRN (Reason: Smoking Cessation) Qty: 0 RF: 0 sennosides [senna] 8.6 MG tablet 8.6 mg PO Q12HP Qty: 0 RF: 0 docusate sodium 100 MG tablet 100 mg PO Q12HP PRN (Reason: Constipation) Qty: 0 RF: 0 sodium phosphates [Fleet Enema] 133 ML enema 1 ea MT PRN PRN (Reason: Constipation) Qty: 0 RF: 0 bisacodyl [Fleet Laxative] 5 MG tablet,delayed release (DR/EC) 10 mg PO PRN PRN (Reason: Constipation) Qty: 0 RF: 0 bisacodyl 10 MG suppository 10 mg MT PRN PRN (Reason: Constipation) Qty: 0 RF: 0 magnesium hydroxide [Milk Of Magnesia Concentrated] 2,400 MG/10 ML suspension 30 ml PO PRN PRN (Reason: Constipation) Qty: 0 RF: 0 atorvastatin [Lipitor] 20 MG tablet 20 mg PO HS Qty: 30 RF: 0 furosemide [Lasix] 20 MG tablet 20 mg PO QDAY Qty: 30 RF: 0 warfarin [Coumadin] 1 MG tablet 1 mg PO QDAY@1700 Qty: 30 RF: 0 tiotropium bromide [Spiriva with HandiHaler] 18 MCG capsule, w/inhalation device 18 mcg INH QDAY Qty: 30 RF: 0 prednisone 10 MG tablet 40 mg PO QDAY Qty: 90 RF: 0 metoprolol succinate 50 mg tablet extended release 24 hr 200 mg PO DAILY RF: 0 hydrocodone-acetaminophen [[place]] 5 MG/325 MG tablet 1 tab PO Q4HP PRN (Reason: Pain, Moderate) RF: 0 lorazepam [Ativan] 0.5 MG tablet 0.5 mg PO TIDP PRN (Reason: Anxiety) RF: 0 clopidogrel [Plavix] 75 mg Tablet 75 mg PO DAILY Qty: 30 RF: 0 levofloxacin 500 mg tablet 500 mg PO Q24H 7 Days Qty: 7 RF: 0 ondansetron [Zofran ODT] 4 mg tablet,disintegrating 4 mg PO Q6H PRN (Reason: nausea and vomiting) Qty: 7 RF: 0 Referrals: Elizabeth Edwards PA-C [Primary Care Provider] -
[2018-01-30] MEDS: CLINDAMYCIN 150 MG CAPSULE 300 MG PO (11:23)
== END 2018-01-30 11:59 | disposition home or self-care (01) ==
PROVIDERS: Emergency Provider Student in an Organized Health Care Education/Training Program; Family Provider Physician Assistant; PCP Physician Assistant
DX: L03.031 Cellulitis of right toe (principal); R11.0 Nausea
CPT/HCPCS: 36415; 36591; 80048; 82247; 83605; 84145; 85025; 87040; 96360; 99284

== ENCOUNTER 2018-02-07 10:10 | Emergency (ER) | payer MEDICARE, MEDICAID, SELFPAY ==
[2018-01-22 21:00] VITALS: BMI 14.1
[2018-02-07 10:16] VITALS: BP 119/80; PULSE 83; RESP 14
[2018-02-07 10:35] VITALS: BP 141/96; PULSE 118; RESP 20; O2SAT 91; BMI 14.1
[2018-02-07 10:49] VITALS: BP 154/111; PULSE 120; RESP 21; TEMP 36.8; O2SAT 95
--- NOTE | 2018-02-07 10:51 | ED_ITS ---
HPI - SOB/Dyspnea General Chief Complaint: Allergic Reaction Stated Complaint: TROUBLE BREATHING Time Seen by Provider: 02/07/18 10:16 Source: patient Mode of arrival: wheelchair Limitations: no limitations History of Present Illness 62-year-old female with longstanding history of COPD complains of shortness of breath and a scratchy sensation in her throat since last night. She still smokes daily and does not use home oxygen. Her baseline pulse ox was about 95% and on arrival here she is 91%. She has been on doxycycline for cellulitis of her right foot for the past few days. MD Complaint: shortness of breath Onset (ago): day(s) Severity: mild Consistency/Duration: constant Relieving factors: nothing Exacerbating factors: nothing Known history of: COPD Treatment prior to arrival: none Related Data Home Medications Medication Instructions Recorded Confirmed phenytoin sodium extended 200 mg PO QDAY #0 05/30/17 02/07/18 [Dilantin Extended] clindamycin HCl 1 cap PO TID 02/07/18 02/07/18 diphenhydramine-acetaminophen 1 tab PO BEDTIME PRN 02/07/18 02/07/18 [Acetaminophen PM] doxycycline hyclate 100 mg PO BID 02/07/18 02/07/18 metoprolol succinate 100 mg PO DAILY 02/07/18 02/07/18 ondansetron [Zofran ODT] 4 mg PO Q4H PRN 02/07/18 02/07/18 Previous Rx's Medication Instructions Recorded atorvastatin [Lipitor] 20 mg PO HS #30 tab 12/08/17 furosemide [Lasix] 20 mg PO QDAY #30 tab 12/08/17 tiotropium bromide [Spiriva with 18 mcg INH QDAY #30 carolynn 12/08/17 HandiHaler] clopidogrel [Plavix] 75 mg PO DAILY #30 tab 01/25/18 clindamycin HCl 300 mg PO QID 7 Days #28 cap 02/07/18 Allergies Allergy/AdvReac Type Severity Reaction Status Date / Time Sulfa (Sulfonamide Allergy Intermediate PRICKLY Verified 01/30/18 08:41 Antibiotics) FEELING ON [SULFA (SULFONAMIDE HER HEAD ANTIBIOTICS)] Penicillins [PENICILLINS] Allergy Unknown RASH Verified 01/30/18 08:41 ANTIBIOTICS Allergy Mild PRICKLY Uncoded 01/30/18 08:41 FEELING ON HER HEAD Review of Systems Review of Systems All systems reviewed & are unremarkable except as noted in HPI and below Constitutional Denies chills, Denies fever(s), Denies lethargy and Denies weakness Eyes Denies change in vision, Denies eye discharge, Denies irritation and Denies loss of vision ENT Ears, Nose, Mouth, and Throat: Denies change in voice, Denies neck pain, Denies sore throat and Reports throat swelling Cardiovascular Denies chest pain, Reports irregular heart rhythm, Denies lightheadedness, Denies palpitations, Denies dyspnea, Denies dyspnea on exertion and Denies orthopnea Respiratory Denies cough, Denies dyspnea, Denies dyspnea on exertion and Denies wheezing Gastrointestinal Gastrointestinal: Denies abdominal pain, Denies change in bowel habits, Denies diarrhea, Denies nausea and Denies vomiting Genitourinary Denies hematuria, Denies flank pain, Denies urinary incontinence and Denies urinary urgency Musculoskeletal Denies neck pain Integumentary/Breasts Denies pruritus, Reports erythema, Denies rash and Denies wounds Neurologic Denies confusion, Denies loss of vision and Denies weakness Psychiatric Denies anxiety, Denies confusion, Denies depression, Denies homicidal ideation and Denies suicidal ideation Endocrine Denies palpitations Hematologic/Lymphatic Denies easy bruising Allergic/Immunologic Reports throat swelling and Denies wheezing [facility] Social History household members: spouse lives independently: Yes caregiver/support person: Yes other: She says she quit smoking today Smoking Status: Current every day smoker Exam Narrative Exam Narrative: Chronically ill 62-year-old female in mild distress Initial Vital Signs Initial Vital Signs: Vital Signs Pulse Rate 83 02/07/18 10:16 Respiratory Rate 14 02/07/18 10:16 Blood Pressure 119/80 02/07/18 10:16 Const General: cooperative, well developed and in distress Nutritional Appearance: malnourished and underweight Orientation: alert, awake, oriented x3 and not confused [facility] [place] Head: normocephalic and atraumatic Ears: external ears normal and TM's normal bilaterally Nose: external nose normal and No nasal discharge Face and sinus: sinuses nontender, face symmetric, no sinus tenderness and No dry mucous membranes Mouth: oral mucosae normal and moist mucous membranes Throat: posterior oropharynx normal and uvula midline Eyes General: appearance normal, both eyes and all related structures Eyelids: eyelids normal Conjunctivae: conjunctivae normal Sclera: sclerae normal Pupils: PERRL EOM: EOM intact bilaterally Neck Neck: normal visual inspection, trachea midline, No lymphadenopathy, No midline deformity and No JVD Lymphatic: No lymphedema Chest Chest: normal inspection of the chest Resp Effort & Inspection: normal respiratory effort, able to speak in complete sentences, no respiratory distress and no use of accessory muscles Auscultation: diminished lung sounds, rales, rhonchi and wheezes Cardio Rate: regular rate and tachycardic Rhythm: regular rhythm Heart Sounds: no click, no gallops, no murmurs and no rubs Pulses: normal peripheral pulses GI Inspection: non-distended Palpation: soft, no hepatosplenomegaly, No guarding, No pulsatile mass and No tender Auscultation: normal bowel sounds Back/Spine/Pelvis Back: No CVA tenderness Cervical Spine: cervical ROM normal and No pain with cervical ROM Thoracic/Lumbar Spine: thoracic and lumbar spine normal to inspection Skin General: no rashes or lesions noted, No jaundice and No petechiae Extrem Right lower extremity: foot Details: tenderness Left lower extremity: normal to inspection (JOY) Course Orders Ordered: ED Orders 02/07/18 10:45 Consult to Respiratory Therapy Evaluate & Treat EKG-12 Lead Stat 02/07/18 11:00 B Type Natriuretic Peptide Stat Complete Blood Count AUTO DIFF Stat Lactate (Lactic Acid) Stat Procalcitonin Stat 02/07/18 11:28 Basic Metabolic Panel Stat Magnesium Stat Troponin with CK Cardiac Panel Stat Discontinued Medications Albuterol/Ipratropium (Duoneb) 3 ml INH NOW ONE Stop: 02/07/18 10:46 Last Admin: 02/07/18 10:57 Dose: 3 ml Famotidine (Pepcid) 20 mg in 50 mls @ 200 mls/hr IV NOW ONE Stop: 02/07/18 11:00 Last Infusion: 02/07/18 11:30 Dose: 0 mls/hr Admin: 02/07/18 10:56 Dose: 200 mls/hr Methylprednisolone (Solu-Medrol 125 Mg Vial) 125 mg IV NOW ONE Stop: 02/07/18 10:46 Last Admin: 02/07/18 10:56 Dose: 125 mg Vital Signs - 8 hr 02/07/18 10:16 02/07/18 10:35 02/07/18 10:49 Temperature 98.3 F Pulse Rate 83 118 H 120 H Respiratory Rate 14 20 21 Blood Pressure 141/96 H Blood Pressure [Right Arm] 119/80 154/111 H Pulse Oximetry 91 95 02/07/18 11:03 02/07/18 13:07 Temperature Pulse Rate 108 H Respiratory Rate 22 Blood Pressure Blood Pressure [Right Arm] 142/100 H Pulse Oximetry 92 95 MDM - SOB/Dyspnea Lab Data Result diagrams: 02/07/18 11:00 02/07/18 11:28 Lab Results 02/07/18 02/07/18 02/07/18 Range/Units 11:00 11:00 11:00 WBC 8.2 (4.5-11.0) X10^3/uL RBC 4.71 (4.0-5.2) X10^6/uL Hgb 14.2 (12.0-16.0) g/dL Hct 41.2 (36-46) % MCV 87.6 (80-100) fL MCH 30.2 (26-34) PG MCHC 34.5 (30-36) % RDW 15.3 H (11.6-14.8) % Plt Count 904 H (150-400) X10^3/uL Neut % (Auto) 64.2 (50-75) % Lymph % (Auto) 20.9 L (25-40) % [place] % (Auto) 13.3 (3-14) % Eos % (Auto) 0.2 L (2-4) % Baso % (Auto) 1.4 (0-2) % Neut # (Auto) 5300 (4739-8959) /uL RBC Morphology Normal morphology Sodium (137-145) mmol/L Potassium (3.4-5.1) mmol/L Chloride (98-107) mmol/L Carbon Dioxide (22-32) mmol/L BUN (7-17) mg/dL Creatinine (0.52-1.04) mg/dL Estimated GFR (>60) mL/min BUN/Creatinine Ratio (6-22) Glucose (80-110) mg/dL Lactate 1.4 (0.7-2.1) mmol/L Calcium (8.4-10.2) mg/dL Magnesium (1.6-2.3) mg/dL Total Creatine Kinase (30-135) U/L Troponin I (0.01-0.034) ng/mL B-Natriuretic Peptide 159.0 H (<29.3) Procalcitonin < 0.05 (<0.5) ng/mL 02/07/18 Range/Units 11:28 WBC (4.5-11.0) X10^3/uL RBC (4.0-5.2) X10^6/uL Hgb (12.0-16.0) g/dL Hct (36-46) % MCV (80-100) fL MCH (26-34) PG MCHC (30-36) % RDW (11.6-14.8) % Plt Count (150-400) X10^3/uL Neut % (Auto) (50-75) % Lymph % (Auto) (25-40) % [place] % (Auto) (3-14) % Eos % (Auto) (2-4) % Baso % (Auto) (0-2) % Neut # (Auto) (6832-5818) /uL RBC Morphology Sodium 138 (137-145) mmol/L Potassium 4.5 (3.4-5.1) mmol/L Chloride 100 (98-107) mmol/L Carbon Dioxide 28 (22-32) mmol/L BUN 13 (7-17) mg/dL Creatinine 0.40 L (0.52-1.04) mg/dL Estimated GFR > 60.0 (>60) mL/min BUN/Creatinine Ratio 32.5 H (6-22) Glucose 87 (80-110) mg/dL Lactate (0.7-2.1) mmol/L Calcium 9.3 (8.4-10.2) mg/dL Magnesium 1.9 (1.6-2.3) mg/dL Total Creatine Kinase < 20 L (30-135) U/L Troponin I < 0.012 (0.01-0.034) ng/mL B-Natriuretic Peptide (<29.3) Procalcitonin (<0.5) ng/mL Discharge Plan Departure Patient Disposition: Home, Self-Care Clinical Impression: Acute exacerbation of chronic obstructive pulmonary disease (COPD), Adverse drug reaction Discharge Date/Time: 02/07/18 13:19 Interventions: ED Discharge Assessment Last Done: 02/07/18 13:18 Instructions: Chronic Obstructive Pulmonary Disease Activity Restrictions/Additional Instructions: *You have been diagnosed with [ possible drug reaction, exacerbation of COPD ] *What to do: * stop taking doxycycline. Please get prescriptions filled and take as directed *Follow up with your primary care provider in 2-3 days *Return to ER if you should have any new, worsening or concerning symptoms Prescriptions: New clindamycin HCl 300 mg capsule 300 mg PO QID 7 Days Qty: 28 RF: 0 No Action phenytoin sodium extended [Dilantin Extended] 100 MG capsule 200 mg PO QDAY Qty: 0 RF: 0 atorvastatin [Lipitor] 20 MG tablet 20 mg PO HS Qty: 30 RF: 0 furosemide [Lasix] 20 MG tablet 20 mg PO QDAY Qty: 30 RF: 0 tiotropium bromide [Spiriva with HandiHaler] 18 MCG capsule, w/inhalation device 18 mcg INH QDAY Qty: 30 RF: 0 clopidogrel [Plavix] 75 mg Tablet 75 mg PO DAILY Qty: 30 RF: 0 metoprolol succinate 100 mg Tablet Extended Release 24 Hr 100 mg PO DAILY RF: 0 ondansetron [Zofran ODT] 4 mg tablet,disintegrating 4 mg PO Q4H PRN (Reason: nausea and vomiting) RF: 0 doxycycline hyclate 100 mg Capsule 100 mg PO BID RF: 0 clindamycin HCl 300 mg capsule 1 cap PO TID RF: 0 diphenhydramine-acetaminophen [Acetaminophen PM] 25-500 mg Tablet 1 tab PO BEDTIME PRN (Reason: SLEEP/PAIN) RF: 0
[2018-02-07] MEDS: FAMOTIDINE 20 MG/50 ML PIGGYBACK 200 MG IV (10:56)
[2018-02-07] MEDS: methylPREDNISolone 125 MG/2 ML VIAL IV (10:56)
[2018-02-07] MEDS: ALBUTEROL/IPRATROPIUM 3 ML AMPUL INH (10:57)
[2018-02-07 11:03] VITALS: O2SAT 92
[2018-02-07 11:25] LABS: Lactate (Lactic Acid) 1.4 mmol/L (0.7-2.1)
[2018-02-07 11:45] LABS: Procalcitonin < 0.05 ng/mL (<0.5)
[2018-02-07 11:48] LABS: Add Manual Diff / Slide Review NO; Basophils Percent Auto 1.4 % (0-2); Eosinophils Percent Auto 0.2 % (2-4); Hematocrit 41.2 % (36-46); Hemoglobin 14.2 g/dL (12.0-16.0); Lymphocytes Percent Auto 20.9 % (25-40); Mean Corpuscular HGB Conc 34.5 % (30-36); Mean Corpuscular Hemoglobin 30.2 PG (26-34); Mean Corpuscular Volume 87.6 fL (80-100); Monocytes Percent Auto 13.3 % (3-14); Neutrophils Absolute Auto 5300 /uL (3000-5900); Neutrophils Percent Auto 64.2 % (50-75); Platelet Count 904 X10^3/uL (150-400); Red Blood Cell Count 4.71 X10^6/uL (4.0-5.2); Red Cell Distribution Width 15.3 % (11.6-14.8); White Blood Cell Count 8.2 X10^3/uL (4.5-11.0)
[2018-02-07 12:20] LABS: RBC Morphology Normal Morphology
[2018-02-07 13:07] VITALS: BP 142/100; PULSE 108; RESP 22; O2SAT 95
[2018-02-07 13:51] LABS: BUN Creatinine Ratio 32.5 (6-22); Blood Urea Nitrogen 13 mg/dL (7-17); Calcium 9.3 mg/dL (8.4-10.2); Carbon Dioxide 28 mmol/L (22-32); Chloride 100 mmol/L (98-107); Creatine Kinase < 20 U/L (30-135); Estimated Glomerular Filt Rate > 60.0 mL/min (>60); Glucose 87 mg/dL (80-110); HEMOLYSIS 19 (0-50); Magnesium 1.9 mg/dL (1.6-2.3); Potassium 4.5 mmol/L (3.4-5.1); Sodium 138 mmol/L (137-145)
[2018-02-07 14:27] LABS: Troponin I < 0.012 ng/mL (0.01-0.034)
== END 2018-02-07 13:19 | disposition home or self-care (01) ==
PROVIDERS: Emergency Provider Emergency Medicine; Family Provider Internal Medicine; PCP Internal Medicine
CPT/HCPCS: 36415; 36591; 80048; 82550; 82553; 83605; 83735; 83880; 84145; 84484; 85025; 93005; 94640; 99283; J2930

== ENCOUNTER 2018-02-08 05:38 | Inpatient (IN) | payer MEDICARE, SELFPAY ==
[2018-01-22 21:00] VITALS: BMI 14.1
[2018-02-08] VITALS (40 sets, daily range): BP systolic 70–209; BP diastolic 39–163; PULSE 69–128; RESP 12–91; TEMP 36.1–37.2; O2SAT 89–100; BMI 12.4
--- NOTE | 2018-02-08 | DI.RAD.S_ITS ---
PROCEDURE: XR CHEST 1V INDICATIONS: 62 year-old female status post chest tube placement. TECHNIQUE: One view of the chest was acquired. COMPARISON: [facility], CR, XR CHEST 1V, 02/08/2018, 6:05. [facility], CR, XR CHEST 2V, 01/22/2018, 15:42. [facility], CR, CHEST 2 VIEW, 12/05/2017, 16:43. FINDINGS: Surgical changes and devices: New right lateral chest tube is in expected position. Endotracheal tube and right internal jugular central venous catheter remain in expected positions. Patient is status post remote right shoulder anterior labral repair. Lungs and pleura: Small right apical pneumothorax has significantly decreased. No pleural effusions. No acute airspace opacities. Mediastinum: Mediastinal contours appear normal. Heart size is normal. There is aortic atherosclerosis. Bones and chest wall: No suspicious bony lesions. Overlying soft tissues appear unremarkable. IMPRESSION: Small right apical pneumothorax has significantly decreased status post right chest tube placement. Dictated by: Flash Mckeon M.D. on 02/08/2018 at 7:52 Approved by: Flash Mckeon M.D. on 02/08/2018 at 7:54
--- NOTE | 2018-02-08 05:52 | DI.RAD.S_ITS ---
PROCEDURE: XR CHEST 1V INDICATIONS: 62 year-old female with shortness of breath, status post central line placement and intubation. TECHNIQUE: One view of the chest was acquired. COMPARISON: [facility], , XR CHEST 2V, 01/22/2018, 15:42. [facility], CHEST 2 VIEW, 12/05/2017, 16:43. [facility], , CHEST 2 VIEW, 05/02/2012, 10:45. FINDINGS: Surgical changes and devices: Endotracheal tube is present, with tip 7 cm above the alexx. Right internal jugular central venous catheter is also present, with tip in the midsuperior vena cava. Patient is status post remote right shoulder anterior labral repair. Lungs and pleura: Lungs are clear. There is moderate right pneumothorax. No pleural effusions. Lung volumes are prominent. Mediastinum: Mediastinal contours appear normal. Heart size is normal. There is aortic atherosclerosis. Bones and chest wall: No suspicious bony lesions. Overlying soft tissues appear unremarkable. IMPRESSION: 1. Moderate right apical and basal pneumothorax. 2. Endotracheal tube and right internal jugular central venous catheter are in expected positions. 3. Prominent lung volumes raise the question of chronic obstructive pulmonary disease. Dictated by: Flash Mckeon M.D. on 02/08/2018 at 7:49 Approved by: Flash Mckeon M.D. on 02/08/2018 at 7:52
[2018-02-08] MEDS: ALBUTEROL/IPRATROPIUM 3 ML AMPUL INH ×3 (05:54→05:57)
--- NOTE | 2018-02-08 06:09 | ED.SOB ---
HPI - SOB/Dyspnea General Chief Complaint: Shortness of Breath/Dyspnea Stated Complaint: SOB Time Seen by Provider: 02/08/18 05:39 Source: patient and EMS Mode of arrival: EMS Limitations: other (Respiratory status) History of Present Illness 62-year-old female brought in by EMS for shortness of breath. Patient was seen here in the emergency department yesterday and was treated for COPD exacerbation. Was discharged home. Per EMS and this small amount of history received from the patient she became short of breath overnight. Received nebulizer treatments at home were not helping. Was receiving a nebulizer treatment by EMS prior to arrival. No IV was established prior to arrival. Patient had very difficult time tolerating the non-rebreather with the nebulizer treatment. Was very claustrophobic and uneven 1/3 door to her room closed. Unable to obtain any other review of systems secondary to the patient's cooperation with the interview. Related Data Home Medications Medication Instructions Recorded Confirmed phenytoin sodium extended 200 mg PO QDAY #0 05/30/17 02/07/18 [Dilantin Extended] clindamycin HCl 1 cap PO TID 02/07/18 02/07/18 diphenhydramine-acetaminophen 1 tab PO BEDTIME PRN 02/07/18 02/07/18 [Acetaminophen PM] doxycycline hyclate 100 mg PO BID 02/07/18 02/07/18 metoprolol succinate 100 mg PO DAILY 02/07/18 02/07/18 ondansetron [Zofran ODT] 4 mg PO Q4H PRN 02/07/18 02/07/18 Previous Rx's Medication Instructions Recorded atorvastatin [Lipitor] 20 mg PO HS #30 tab 12/08/17 furosemide [Lasix] 20 mg PO QDAY #30 tab 12/08/17 tiotropium bromide [Spiriva with 18 mcg INH QDAY #30 carolynn 12/08/17 HandiHaler] clopidogrel [Plavix] 75 mg PO DAILY #30 tab 01/25/18 clindamycin HCl 300 mg PO QID 7 Days #28 cap 02/07/18 Allergies Allergy/AdvReac Type Severity Reaction Status Date / Time Sulfa (Sulfonamide Allergy Intermediate PRICKLY Verified 01/30/18 08:41 Antibiotics) FEELING ON [SULFA (SULFONAMIDE HER HEAD ANTIBIOTICS)] Penicillins [PENICILLINS] Allergy Unknown RASH Verified 01/30/18 08:41 ANTIBIOTICS Allergy Mild PRICKLY Uncoded 01/30/18 08:41 FEELING ON HER HEAD Review of Systems Review of Systems All systems reviewed & are unremarkable except as noted in HPI and below Cardiovascular Reports dyspnea Respiratory Reports cough, Reports dyspnea and Reports wheezing Allergic/Immunologic Reports wheezing [facility] Medical History 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 Mother No problems noted. Social History household members: spouse lives independently: Yes caregiver/support person: Yes other: She says she quit smoking today Smoking Status: Current every day smoker Exam Initial Vital Signs Initial Vital Signs: Vital Signs Temperature 97.9 F 02/08/18 05:51 Pulse Rate 109 H 02/08/18 05:51 Respiratory Rate 32 H 02/08/18 05:51 Blood Pressure 209/128 H 02/08/18 05:51 Pulse Oximetry 90 L 02/08/18 05:51 Const General: No cooperative, No healthy appearing, in distress, anxious, frail appearing and ill appearing [facility] Head: normal to inspection, normocephalic and atraumatic Ears: hearing grossly normal bilaterally Nose: external nose normal Mouth: oral mucosae normal Eyes General: appearance normal, both eyes and all related structures Chest Chest: normal inspection of the chest and No crepitus Resp Effort & Inspection: not able to speak in complete sentences, audible wheezes, cough, decreased respiratory effort, labored, respiratory distress, no retractions, no stridor, tachypneic and tripod positioning Other: Patient with very decreased breath sounds bilaterally. Difficult to hear any other lung sounds secondary to the poor inspiratory effort. Cardio Rate: tachycardic Rhythm: regular rhythm GI Inspection: normal to inspection and non-distended Palpation: soft Back/Spine/Pelvis Back: No back tenderness Skin General: no rashes or lesions noted, No jaundice and No petechiae Other: Pale skin, mottled skin of the chest Neuro General: alert and awake Other: No focal neuro deficits on the limited neurologic exam that was performed Extrem Other: Left lower extremity amputation not new Procedures Chest Tube Chest Tube 1: Chest Tube Location: right and anterior axillary line Size of Tube (cm): 24 Chest Tube Prep: Yes betadine prep Incision Made With: #11 blade Post Procedure: sutured to skin and sterile dressing applied Tube Drainage: none Post Procedure CXR?: Yes Patient Tolerated Procedure: Yes Intubation Time out performed: Yes sedative: Etomidate Mg Given: 20 paralytic: Succinylcholine Mg Given: 120 Laryngoscope: Cynthia ET Tube Size: 7 ET Tube Uncuffed: No Tube Secured Location: teeth Tube Placement Confirmation: Visualized tube passing through cords, Confirmation by capnometry and Chest Xray Patient Tolerated Procedure: Well Intubation Complications: none Intraosseous Right Tibia: Time Out Performed: No IO Instrument Used to Penetrate the Cortex: battery powered IO drill Patient Tolerated Procedure: Well Complications: none Course Orders Ordered: ED Orders 02/08/18 XR chest 1V Stat 02/08/18 05:52 XR chest 1V Stat 02/08/18 07:28 Arterial Blood Gas Stat 02/08/18 07:35 Lactate (Lactic Acid) Stat 02/08/18 07:39 Urinalysis and Microscopic Stat 02/08/18 07:40 B Type Natriuretic Peptide Stat Complete Blood Count AUTO DIFF Stat Comprehensive Metabolic Panel Stat Procalcitonin Stat Discontinued Medications Albuterol (Ventolin) 5 mg INH NOW ONE Stop: 02/08/18 06:45 Last Admin: 02/08/18 06:46 Dose: 5 mg Albuterol/Ipratropium (Duoneb) 3 ml INH NOW ONE Stop: 02/08/18 05:51 Last Admin: 02/08/18 05:54 Dose: 3 ml Albuterol/Ipratropium (Duoneb) 3 ml INH NOW ONE Stop: 02/08/18 05:53 Last Admin: 02/08/18 05:55 Dose: 3 ml Albuterol/Ipratropium (Duoneb) 3 ml INH NOW ONE Stop: 02/08/18 05:54 Last Admin: 02/08/18 05:57 Dose: 3 ml Magnesium Sulfate (Magnesium Sulfate) 2 gm in 50 mls @ 25 mls/hr IV NOW ONE Stop: 02/08/18 08:03 Last Admin: 02/08/18 07:50 Dose: Not Given Methylprednisolone (Solu-Medrol 125 Mg Vial) 125 mg IV NOW ONE Stop: 02/08/18 05:53 Last Admin: 02/08/18 07:52 Dose: 125 mg Nitroglycerin (Nitro-Bid) 0.5 inch TOP NOW ONE Stop: 02/08/18 06:05 Last Admin: 02/08/18 07:49 Dose: Not Given Vital Signs - 8 hr 02/08/18 05:51 02/08/18 05:57 02/08/18 06:00 Temperature 97.9 F Pulse Rate 109 H 118 H 113 H Respiratory Rate 32 H 35 H Blood Pressure 209/128 H Blood Pressure [Right Arm] 196/163 H Pulse Oximetry 90 L 94 100 02/08/18 06:15 02/08/18 06:30 02/08/18 06:46 Temperature Pulse Rate 110 H 126 H 121 H Respiratory Rate 36 H 17 Blood Pressure Blood Pressure [Right Arm] 180/115 H Pulse Oximetry 99 02/08/18 06:50 02/08/18 07:15 02/08/18 07:25 Temperature Pulse Rate 128 H 109 H 104 H Respiratory Rate 91 H 23 18 Blood Pressure Blood Pressure [Right Arm] 134/118 H 105/80 132/90 H Pulse Oximetry 100 100 100 02/08/18 07:35 02/08/18 07:40 02/08/18 07:45 Temperature Pulse Rate 103 H 98 H 97 H Respiratory Rate 21 16 17 Blood Pressure Blood Pressure [Right Arm] 179/83 H 124/89 H 101/80 Pulse Oximetry 100 100 100 MDM - SOB/Dyspnea Lab Data Result diagrams: 02/08/18 07:40 02/08/18 07:40 Imaging Data Chest x-ray: My impression: ET tube midline above the alexx Right IJ in acceptable position Right-sided pneumothorax Post chest tube chest x-ray: Attestation: I personally reviewed and interpreted this imaging study as follows: My impression: Chest to right superior thorax No change to ET tube or IJ location Resolution of right-sided pneumothorax MDM Narrative Medical decision making narrative: Patient arrived with decreased breath sounds bilaterally. Was in respiratory distress however not hypoxic. Was receiving nebulizer treatments. Patient had difficulty tolerating the non-rebreather secondary to claustrophobia. She was given a continuous neb through the mouthpiece. Initially patient was resistant to having her blood pressure checked and also starting an IV. Was hypertensive upon arrival with a systolic blood pressures in the 220s. After short period of time in the emergency department trying continuous nebs I had ordered nitroglycerin for concerns of a CHF exacerbation secondary to the elevated blood pressure. Also ordered magnesium. Prior to this being administered patient became acutely worse and tiring out. Decision was made to intubate the patient. Unable to obtain IV access. A right tibial interosseous was placed and RSI performed through the tibial IO. Patient was intubated without complication. Secondary to her lack of IV access a right internal jugular central line was placed under ultrasound guidance. During the post intubation and right IJ chest x-ray was noted that the patient had a right-sided pneumothorax. Bedside ultrasound confirmed the diagnosis of right-sided pneumothorax secondary to no lung sliding. A right-sided chest tube was placed with return of air. Post chest tube chest x-ray shows improvement of right-sided pneumothorax. After the placement of the chest to patient's respiratory status improved. The mottling that she was starting to have on her chest resolved. I suspect that the right-sided pneumothorax was present upon her arrival here to the emergency department secondary to the vast improvement of her respiratory symptoms with the placement of the chest tube. I suspect that the decreased breath sounds bilaterally were not secondary to bronchospasm but secondary to the pneumothorax. I discussed the case with Dr. Butler who will admit the patient to the ICU. Discussed the case with the patient's who is at bedside. He expressed understanding and agreement with plan. Labs pending at time of admission Discharge Plan Departure Patient Disposition: Admitted As Inpatient Clinical Impression: COPD (chronic obstructive pulmonary disease), Respiratory failure, Pneumothorax Admit Date/Time: 02/08/18 07:41 Admit Provider: Wagner Butler
[2018-02-08] MEDS: ALBUTEROL 2.5 MG/3 ML NEB 5 MG INH (06:46)
[2018-02-08 07:52] LABS: Lactate (Lactic Acid) 2.4 mmol/L (0.7-2.1)
[2018-02-08] MEDS: methylPREDNISolone 125 MG/2 ML VIAL IV (07:52)
[2018-02-08 08:02] LABS: Add Manual Diff / Slide Review NO; Basophils Percent Auto 0.4 % (0-2); Eosinophils Percent Auto 0.1 % (2-4); Hematocrit 34.2 % (36-46); Hemoglobin 11.3 g/dL (12.0-16.0); Lymphocytes Percent Auto 11.3 % (25-40); Mean Corpuscular HGB Conc 33.1 % (30-36); Mean Corpuscular Hemoglobin 29.7 PG (26-34); Mean Corpuscular Volume 89.6 fL (80-100); Monocytes Percent Auto 4.2 % (3-14); Neutrophils Absolute Auto 14100 /uL (3000-5900); Platelet Count 658 X10^3/uL (150-400); Red Blood Cell Count 3.82 X10^6/uL (4.0-5.2); Red Cell Distribution Width 15.5 % (11.6-14.8); White Blood Cell Count 16.8 X10^3/uL (4.5-11.0)
[2018-02-08 08:20] LABS: Alanine Aminotransferase 30 IU/L (9-52); Albumin 2.9 g/dL (3.5-5.0); Alkaline Phosphatase 51 U/L (38-126); Aspartate Aminotransferase 116 IU/L (14-36); BUN Creatinine Ratio 31.7 (6-22); Bilirubin Total 0.5 mg/dL (0.2-1.3); Blood Urea Nitrogen 19 mg/dL (7-17); Calcium 7.6 mg/dL (8.4-10.2); Carbon Dioxide 22 mmol/L (22-32); Chloride 107 mmol/L (98-107); Estimated Glomerular Filt Rate > 60.0 mL/min (>60); Glucose 137 mg/dL (80-110); HEMOLYSIS 38 (0-50); Potassium 3.5 mmol/L (3.4-5.1); Sodium 139 mmol/L (137-145); Total Protein 5.9 g/dL (6.3-8.2)
[2018-02-08 08:37] LABS: Procalcitonin < 0.05 ng/mL (<0.5)
[2018-02-08] MEDS: SODIUM CHLORIDE 0.9% 1,000 ML 100 ML IV ×2 (08:59→14:28)
[2018-02-08] MEDS: PHENYTOIN ER 100 MG CAPSULE 200 MG PO (09:03)
[2018-02-08] MEDS: Moxifloxacin 400 MG/250 ML PIGGYBACK 250 MG IV (09:06)
[2018-02-08] MEDS: METOPROLOL ER 50 MG TABLET 100 MG PO (09:06)
[2018-02-08] MEDS: FUROSEMIDE 20 MG TABLET PO (09:06)
--- NOTE | 2018-02-08 09:18 | DI.RAD.S_ITS ---
PROCEDURE: XR CHEST 1V INDICATIONS: ogt placement TECHNIQUE: One view of the chest was acquired. COMPARISON: [facility], CR, XR CHEST 1V, 02/08/2018, 6:05. FINDINGS: Surgical changes and devices: Interval placement of right pleural drain, tip directed superiorly at the level of the sixth posterior rib. Tracheal tube is present with tip approximately 2.4 cm above the alexx. Nasogastric tube has been placed with tip in the stomach. Right IJ central venous line remains in position with tip at the mid to distal SVC. Post surgical anchors over the right shoulder are again noted. Lungs and pleura: Right pneumothorax is decreased in size secondary to chest tube placement. Considerable subcutaneous emphysema is present throughout the right chest wall and shoulder. Probable COPD. Mediastinum: Chest is rotated to the left. Mediastinal contours appear normal. Heart size is normal. Aortic calcifications. Bones and chest wall: Generalized osteopenia. No suspicious bony lesions. Overlying soft tissues appear unremarkable. IMPRESSION: 1. Interval placement of right-sided chest tube with decreased volume of right pneumothorax. Considerable right subcutaneous emphysema. 2. Interval placement of nasogastric tube with tip in the stomach. Remaining support tubes in place. 3. Probable chronic obstructive pulmonary disease. Dictated by: David Hernandez M.D. on 02/08/2018 at 9:44 Approved by: David Hernandez M.D. on 02/08/2018 at 9:49
--- NOTE | 2018-02-08 09:20 | PM.HP.1 ---
History of Present Illness Chief complaint: SOB Narrative: Evie Malone is a 62 year old female presents with respiratory failure. She has been seen in the ER a few times in the past several weeks she was discharged earlier in the month from the hospital for a cellulitis was seen twice in the ER for nausea and then was seen yesterday for shortness of breath treated for a COPD exacerbation and discharged from the ER then presented again this morning early with worsening shortness of breath dyspnea unresponsive to treatment in the ER and required intubation also is IJ central line was placed she was noted to have a pneumothorax after that procedure and underwent a chest tube insertion there in the ER also. Patient unable at this time to give much of a history due to the intubation and sedation. She was recently on Levaquin for the cellulitis and then on doxycycline but has been off antibiotics for maybe a few days to a week. She had a CT scan of her abdomen done a couple weeks ago while working up the nausea. That showed atherosclerotic mural plaquing and stenosis at the origin of each renal artery and the celiac axis and superior mesenteric artery. 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 Mother No problems noted. Social History: household members spouse lives independently Yes caregiver/support person Yes other She says she quit smoking today Tobacco & Substance use: Tobacco type cigarettes,cannabis/marijuana Smoking Status Current every day smoker alcohol intake frequency a few times a month Substance Use Type marijuana Meds Home Medications Medication Instructions Recorded Confirmed Type phenytoin sodium extended 200 mg PO QDAY #0 05/30/17 02/07/18 History [Dilantin Extended] atorvastatin [Lipitor] 20 mg PO HS #30 tab 12/08/17 02/07/18 Rx furosemide [Lasix] 20 mg PO QDAY #30 tab 12/08/17 02/07/18 Rx tiotropium bromide [Spiriva with 18 mcg INH QDAY #30 carolynn 12/08/17 02/07/18 Rx HandiHaler] clopidogrel [Plavix] 75 mg PO DAILY #30 tab 01/25/18 02/07/18 Rx clindamycin HCl 1 cap PO TID 02/07/18 02/07/18 History clindamycin HCl 300 mg PO QID 7 Days #28 cap 02/07/18 Rx diphenhydramine-acetaminophen 1 tab PO BEDTIME PRN 02/07/18 02/07/18 History [Acetaminophen PM] doxycycline hyclate 100 mg PO BID 02/07/18 02/07/18 History metoprolol succinate 100 mg PO DAILY 02/07/18 02/07/18 History ondansetron [Zofran ODT] 4 mg PO Q4H PRN 02/07/18 02/07/18 History Allergies Allergy/AdvReac Type Severity Reaction Status Date / Time Sulfa (Sulfonamide Allergy Intermediate PRICKLY Verified 01/30/18 08:41 Antibiotics) FEELING ON [SULFA (SULFONAMIDE HER HEAD ANTIBIOTICS)] Penicillins [PENICILLINS] Allergy Unknown RASH Verified 01/30/18 08:41 ANTIBIOTICS Allergy Mild PRICKLY Uncoded 01/30/18 08:41 FEELING ON HER HEAD Review of Systems Review of Systems All systems reviewed & are unremarkable except as noted in HPI and below Exam Vital Signs (past 8 hours): Vital Signs - 8 hr 02/08/18 05:51 02/08/18 05:57 02/08/18 06:00 Temperature 97.9 F Pulse Rate 109 H 118 H 113 H Respiratory Rate 32 H 35 H Blood Pressure 209/128 H Blood Pressure [Right Arm] 196/163 H Pulse Oximetry 90 L 94 100 02/08/18 06:15 02/08/18 06:30 02/08/18 06:46 Temperature Pulse Rate 110 H 126 H 121 H Respiratory Rate 36 H 17 Blood Pressure Blood Pressure [Right Arm] 180/115 H Pulse Oximetry 99 02/08/18 06:50 02/08/18 07:15 02/08/18 07:20 Temperature Pulse Rate 128 H 109 H 107 H Respiratory Rate 91 H 23 17 Blood Pressure Blood Pressure [Right Arm] 134/118 H 105/80 Pulse Oximetry 100 100 100 02/08/18 07:25 02/08/18 07:30 02/08/18 07:35 Temperature Pulse Rate 104 H 103 H 103 H Respiratory Rate 18 23 21 Blood Pressure Blood Pressure [Right Arm] 132/90 H 179/83 H Pulse Oximetry 100 100 100 02/08/18 07:40 02/08/18 07:45 02/08/18 07:56 Temperature Pulse Rate 98 H 97 H 95 H Respiratory Rate 16 17 18 Blood Pressure Blood Pressure [Right Arm] 124/89 H 101/80 105/80 Pulse Oximetry 100 100 100 02/08/18 08:03 02/08/18 08:27 02/08/18 09:06 Temperature Pulse Rate 93 H 96 H Respiratory Rate 18 Blood Pressure 108/65 128/85 H Blood Pressure [Right Arm] 89/71 L Pulse Oximetry 100 Pulse Oximetry 100 Oxygen Delivery Method Mechanical Ventilation Oxygen Flow Rate 4 Narrative Exam Narrative: Thin slightly disheveled female unresponsive on a ventilator and intubated and heavily sedated. Oral endotracheal tube in place also OG tube in place Neck internal jugular central line in place with lots of bruising around the line some mild swelling subcu emphysema noted in that area also Lungs diffuse rhonchi coarse breath sounds Heart tachycardic Chest chest tube in place on the right thorax Abdomen thin soft Lower extremities left above the knee amputation Neuro exam she does move all 4 extremities spontaneously she is agitated when not sedated on the ventilator Objective Labs Result Diagrams: 02/08/18 07:40 02/08/18 07:40 Labs: Laboratory Results - last 24 hr 02/08/18 02/08/18 02/08/18 07:35 07:40 07:40 WBC 16.8 H D RBC 3.82 L Hgb 11.3 L Hct 34.2 L MCV 89.6 MCH 29.7 MCHC 33.1 RDW 15.5 H Plt Count 658 H Neut % (Auto) 84.0 H Lymph % (Auto) 11.3 L [place] % (Auto) 4.2 Eos % (Auto) 0.1 L Baso % (Auto) 0.4 Neut # (Auto) 18008 H Sodium 139 Potassium 3.5 Chloride 107 Carbon Dioxide 22 BUN 19 H Creatinine 0.60 Estimated GFR > 60.0 BUN/Creatinine Ratio 31.7 H Glucose 137 H Lactate 2.4 H Calcium 7.6 L Total Bilirubin 0.5 AST 116 H ALT 30 Alkaline Phosphatase 51 B-Natriuretic Peptide 253.0 H Total Protein 5.9 L Albumin 2.9 L Globulin 3.0 Albumin/Globulin Ratio 1.0 Procalcitonin 02/08/18 07:40 WBC RBC Hgb Hct MCV MCH MCHC RDW Plt Count Neut % (Auto) Lymph % (Auto) [place] % (Auto) Eos % (Auto) Baso % (Auto) Neut # (Auto) Sodium Potassium Chloride Carbon Dioxide BUN Creatinine Estimated GFR BUN/Creatinine Ratio Glucose Lactate Calcium Total Bilirubin AST ALT Alkaline Phosphatase B-Natriuretic Peptide Total Protein Albumin Globulin Albumin/Globulin Ratio Procalcitonin < 0.05 Assessment & Plan Plan: Plan: One. Acute respiratory failure requiring intubation and mechanical ventilation placed secondary to COPD exacerbation possible pneumonia 2. COPD exacerbation and pneumonia plan to continue with ventilation sedation antibiotics bronchodilators and IV prednisone Solu-Medrol 3. Persistent nausea off and on and with its inability to gain weight a possibly malnourished. Dietary to take a look at this and concerned about possible mesenteric ischemia this can be addressed once respiratory failure is improved 4. Atherosclerotic peripheral vascular disease patient continues to smoke tobacco she really needs to stop before any other interventions vascularly can be considered. We will continue with the Plavix plan going to hold it today because of the oozing from the right right IJ site. Her INR is also mildly elevated her liver enzymes also mildly elevated 5. Mildly elevated liver enzymes plan to recheck tomorrow also recheck her INR which was mildly elevated 6. Tobacco dependence patient will be counseled to stop tobacco when she is awake. 7. DVT prophylaxis because of the bleeding around the IJ site we will hold any anticoagulation initially but will place her on compression stockings and sequential compression stockings. 8. Hypertension resume home medications when appropriate 9. History of seizures plan to continue Dilantin through the OG tube
--- NOTE | 2018-02-08 09:32 | P.HP_ITS ---
History of Present Illness Chief complaint: SOB Narrative: Evie Malone is a 62 year old female presents with respiratory failure. She has been seen in the ER a few times in the past several weeks she was discharged earlier in the month from the hospital for a cellulitis was seen twice in the ER for nausea and then was seen yesterday for shortness of breath treated for a COPD exacerbation and discharged from the ER then presented again this morning early with worsening shortness of breath dyspnea unresponsive to treatment in the ER and required intubation also is IJ central line was placed she was noted to have a pneumothorax after that procedure and underwent a chest tube insertion there in the ER also. Patient unable at this time to give much of a history due to the intubation and sedation. She was recently on Levaquin for the cellulitis and then on doxycycline but has been off antibiotics for maybe a few days to a week. She had a CT scan of her abdomen done a couple weeks ago while working up the nausea. That showed atherosclerotic mural plaquing and stenosis at the origin of each renal artery and the celiac axis and superior mesenteric artery. 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 Mother No problems noted. Social History: household members spouse lives independently Yes caregiver/support person Yes other She says she quit smoking today Tobacco & Substance use: Tobacco type cigarettes,cannabis/marijuana Smoking Status Current every day smoker alcohol intake frequency a few times a month Substance Use Type marijuana Meds Home Medications Medication Instructions Recorded Confirmed Type phenytoin sodium extended 200 mg PO QDAY #0 05/30/17 02/07/18 History [Dilantin Extended] atorvastatin [Lipitor] 20 mg PO HS #30 tab 12/08/17 02/07/18 Rx furosemide [Lasix] 20 mg PO QDAY #30 tab 12/08/17 02/07/18 Rx tiotropium bromide [Spiriva with 18 mcg INH QDAY #30 [place] 12/08/17 02/07/18 Rx HandiHaler] clopidogrel [Plavix] 75 mg PO DAILY #30 tab 01/25/18 02/07/18 Rx clindamycin HCl 1 cap PO TID 02/07/18 02/07/18 History clindamycin HCl 300 mg PO QID 7 Days #28 cap 02/07/18 Rx diphenhydramine-acetaminophen 1 tab PO BEDTIME PRN 02/07/18 02/07/18 History [Acetaminophen PM] doxycycline hyclate 100 mg PO BID 02/07/18 02/07/18 History metoprolol succinate 100 mg PO DAILY 02/07/18 02/07/18 History ondansetron [Zofran ODT] 4 mg PO Q4H PRN 02/07/18 02/07/18 History Allergies Allergy/AdvReac Type Severity Reaction Status Date / Time Sulfa (Sulfonamide Allergy Intermediate PRICKLY Verified 01/30/18 08:41 Antibiotics) FEELING ON [SULFA (SULFONAMIDE HER HEAD ANTIBIOTICS)] Penicillins [PENICILLINS] Allergy Unknown RASH Verified 01/30/18 08:41 ANTIBIOTICS Allergy Mild PRICKLY Uncoded 01/30/18 08:41 FEELING ON HER HEAD Review of Systems Review of Systems All systems reviewed & are unremarkable except as noted in HPI and below Exam Vital Signs (past 8 hours): Vital Signs - 8 hr 3 02/08/18 05:51 02/08/18 05:57 02/08/18 06:00 Temperature 97.9 F Pulse Rate 109 H 118 H 113 H Respiratory Rate 32 H 35 H Blood Pressure 209/128 H Blood Pressure [Right Arm] 196/163 H Pulse Oximetry 90 L 94 100 3 02/08/18 06:15 02/08/18 06:30 02/08/18 06:46 Temperature Pulse Rate 110 H 126 H 121 H Respiratory Rate 36 H 17 Blood Pressure Blood Pressure [Right Arm] 180/115 H Pulse Oximetry 99 3 02/08/18 06:50 02/08/18 07:15 02/08/18 07:20 Temperature Pulse Rate 128 H 109 H 107 H Respiratory Rate 91 H 23 17 Blood Pressure Blood Pressure [Right Arm] 134/118 H 105/80 Pulse Oximetry 100 100 100 3 02/08/18 07:25 02/08/18 07:30 06/01/18 07:35 Temperature Pulse Rate 104 H 103 H 103 H Respiratory Rate 18 23 21 Blood Pressure Blood Pressure [Right Arm] 132/90 H 179/83 H Pulse Oximetry 100 100 100 3 02/08/18 07:40 02/08/18 07:45 02/08/18 07:56 Temperature Pulse Rate 98 H 97 H 95 H Respiratory Rate 16 17 18 Blood Pressure Blood Pressure [Right Arm] 124/89 H 101/80 105/80 Pulse Oximetry 100 100 100 3 02/08/18 08:03 02/08/18 08:27 02/08/18 09:06 Temperature Pulse Rate 93 H 96 H Respiratory Rate 18 Blood Pressure 108/65 128/85 H Blood Pressure [Right Arm] 89/71 L Pulse Oximetry 100 Pulse Oximetry 100 Oxygen Delivery Method Mechanical Ventilation Oxygen Flow Rate 4 Narrative Exam Narrative: Thin slightly disheveled female unresponsive on a ventilator and intubated and heavily sedated. Oral endotracheal tube in place also OG tube in place Neck internal jugular central line in place with lots of bruising around the line some mild swelling subcu emphysema noted in that area also Lungs diffuse rhonchi coarse breath sounds Heart tachycardic Chest chest tube in place on the right thorax Abdomen thin soft Lower extremities left above the knee amputation Neuro exam she does move all 4 extremities spontaneously she is agitated when not sedated on the ventilator Objective Labs Result Diagrams: 02/08/18 07:40 02/08/18 07:40 Labs: Laboratory Results - last 24 hr 02/08/18 02/08/18 02/08/18 07:35 07:40 07:40 WBC 16.8 H D RBC 3.82 L Hgb 11.3 L Hct 34.2 L MCV 89.6 MCH 29.7 MCHC 33.1 RDW 15.5 H Plt Count 658 H Neut % (Auto) 84.0 H Lymph % (Auto) 11.3 L [place] % (Auto) 4.2 Eos % (Auto) 0.1 L Baso % (Auto) 0.4 Neut # (Auto) 07029 H Sodium 139 Potassium 3.5 Chloride 107 Carbon Dioxide 22 BUN 19 H Creatinine 0.60 Estimated GFR > 60.0 BUN/Creatinine Ratio 31.7 H Glucose 137 H Lactate 2.4 H Calcium 7.6 L Total Bilirubin 0.5 AST 116 H ALT 30 Alkaline Phosphatase 51 B-Natriuretic Peptide 253.0 H Total Protein 5.9 L Albumin 2.9 L Globulin 3.0 Albumin/Globulin Ratio 1.0 Procalcitonin 02/08/18 07:40 WBC RBC Hgb Hct MCV MCH MCHC RDW Plt Count Neut % (Auto) Lymph % (Auto) [place] % (Auto) Eos % (Auto) Baso % (Auto) Neut # (Auto) Sodium Potassium Chloride Carbon Dioxide BUN Creatinine Estimated GFR BUN/Creatinine Ratio Glucose Lactate Calcium Total Bilirubin AST ALT Alkaline Phosphatase B-Natriuretic Peptide Total Protein Albumin Globulin Albumin/Globulin Ratio Procalcitonin < 0.05 Assessment & Plan Plan: Plan: One. Acute respiratory failure requiring intubation and mechanical ventilation placed secondary to COPD exacerbation possible pneumonia 2. COPD exacerbation and pneumonia plan to continue with ventilation sedation antibiotics bronchodilators and IV prednisone Solu-Medrol 3. Persistent nausea off and on and with its inability to gain weight a possibly malnourished. Dietary to take a look at this and concerned about possible mesenteric ischemia this can be addressed once respiratory failure is improved 4. Atherosclerotic peripheral vascular disease patient continues to smoke tobacco she really needs to stop before any other interventions vascularly can be considered. We will continue with the Plavix plan going to hold it today because of the oozing from the right right IJ site. Her INR is also mildly elevated her liver enzymes also mildly elevated 5. Mildly elevated liver enzymes plan to recheck tomorrow also recheck her INR which was mildly elevated 6. Tobacco dependence patient will be counseled to stop tobacco when she is awake. 7. DVT prophylaxis because of the bleeding around the IJ site we will hold any anticoagulation initially but will place her on compression stockings and sequential compression stockings. 8. Hypertension resume home medications when appropriate 9. History of seizures plan to continue Dilantin through the OG tube
[2018-02-08 09:39] LABS: pH ABG 7.17 (7.35-7.45)
[2018-02-08 09:40] LABS: PCO2 ABG 63.1 mmHg (35-45); PO2 ABG 141 mmHg (80-105)
[2018-02-08 09:41] LABS: Fractionated Inspired Oxygen 50; HCO3 ABG 23 mmol/L (23-27); Oxygen Saturation ABG 98 % (95-100); TCO2 ABG 25 mmol/L (23-27)
[2018-02-08] MEDS: HYDROMORPHONE 0.5 MG INJ IV ×5 (09:45→23:36)
[2018-02-08 10:11] LABS: Bacteria Urine None Seen; RBC Urine None Seen (0-5/HPF); WBC Urine None Seen (0-5/HPF)
[2018-02-08 10:14] LABS: Appearance Urine UA CLEAR; Bilirubin Urine UA NEGATIVE (NEGATIVE); Color Urine UA YELLOW; Glucose Urine UA NEGATIVE (Normal); Ketones Urine UA NEGATIVE (NEGATIVE); Leukocyte Esterase Urine UA NEGATIVE (NEGATIVE); Nitrite Urine UA Negative (Negative); Occult Blood Urine UA NEGATIVE (Negative); Protein Urine UA NEGATIVE (Negative); Urobilinogen Urine UA 0.2 E.U./dL (0.2)
[2018-02-08 10:27] LABS: Culture Indicated Urine Cult Not Indicated; Urine Comments Microscopic Normal
--- NOTE | 2018-02-08 11:36 | RT ---
Post ABG Vent changes were made per Dr. Morton. Pt will be moved to ICU on the LTV Vent.
[2018-02-08 11:43] LABS: Add Manual Diff / Slide Review NO; Basophils Percent Auto 0.2 % (0-2); Hematocrit 33.5 % (36-46); Lymphocytes Percent Auto 5.8 % (25-40); Mean Corpuscular HGB Conc 32.9 % (30-36); Mean Corpuscular Hemoglobin 29.4 PG (26-34); Mean Corpuscular Volume 89.4 fL (80-100); Monocytes Percent Auto 4.5 % (3-14); Neutrophils Absolute Auto 13000 /uL (3000-5900); Neutrophils Percent Auto 89.5 % (50-75); Platelet Count 609 X10^3/uL (150-400); Red Blood Cell Count 3.74 X10^6/uL (4.0-5.2); White Blood Cell Count 14.6 X10^3/uL (4.5-11.0)
[2018-02-08 11:45] LABS: Reflexed Lactate in 2 Hours Y
[2018-02-08] MEDS: PROPOFOL 1,000 MG/10 ML VIAL 5 MG IV (11:49)
[2018-02-08 11:53] LABS: Lactate 2HR (Lactic Acid Rflx) 3.5 mmol/L (0.7-2.1)
[2018-02-08 11:55] LABS: Fractionated Inspired Oxygen 35; HCO3 ABG 18 mmol/L (23-27); Oxygen Saturation ABG 97 % (95-100); PCO2 ABG 39.9 mmHg (35-45); PO2 ABG 103 mmHg (80-105); TCO2 ABG 19 mmol/L (23-27); pH ABG 7.27 (7.35-7.45)
[2018-02-08 12:00] LABS: Alanine Aminotransferase 27 IU/L (9-52); Albumin 2.9 g/dL (3.5-5.0); Alkaline Phosphatase 54 U/L (38-126); Aspartate Aminotransferase 40 IU/L (14-36); BUN Creatinine Ratio 31.7 (6-22); Bilirubin Total 0.3 mg/dL (0.2-1.3); Blood Urea Nitrogen 19 mg/dL (7-17); Calcium 7.8 mg/dL (8.4-10.2); Carbon Dioxide 22 mmol/L (22-32); Chloride 107 mmol/L (98-107); Estimated Glomerular Filt Rate > 60.0 mL/min (>60); Globulin 2.8 g/dL (1.7-4.1); Glucose 101 mg/dL (80-110); HEMOLYSIS < 15 (0-50); Sodium 139 mmol/L (137-145); Total Protein 5.7 g/dL (6.3-8.2)
[2018-02-08] MEDS: ALBUTEROL HFA 60 PUFF/8 GM INH 8 PUFF INH ×3 (12:00→21:18)
[2018-02-08] MEDS: IPRATROPIUM HFA 8 PUFF INH ×3 (12:05→21:17)
--- NOTE | 2018-02-08 14:18 | PM.CN ---
History of Present Illness Date Patient Seen: 02/08/18 Time Patient Seen: 09:30 Chief complaint: SOB Reason for consult: Right tube thoracostomy Requesting provider: Wagner Butler Narrative: 62-year-old female with significant smoking history and advanced COPD who presented to the emergency department with progressive symptoms of shortness of breath. Patient required urgent intubation and IV access given her significant hypoxia and respiratory failure. Following intubation a right internal jugular vein central venous catheter was inserted per the emergency room staff. Postprocedure chest film demonstrated a right pneumothorax. Right tube thoracostomy was performed in the emergency department by the ER staff. Patient was subsequently stabilized and admitted per the internal medicine service to the intensive care unit for ongoing management of her respiratory issues and other comorbid medical conditions. Surgical consultation is now obtained to manage the tube thoracostomy. I can obtain no further history from the patient as she is intubated and sedated. Entire history is obtained from the chart as above. 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 Mother No problems noted. Social History household members: spouse lives independently: Yes caregiver/support person: Yes other: She says she quit smoking today Smoking Status: Current every day smoker Meds Home Medications Medication Instructions Recorded Confirmed Type phenytoin sodium extended 200 mg PO QDAY #0 05/30/17 02/08/18 History [Dilantin Extended] atorvastatin [Lipitor] 20 mg PO HS #30 tab 12/08/17 02/08/18 Rx furosemide [Lasix] 20 mg PO QDAY #30 tab 12/08/17 02/08/18 Rx tiotropium bromide [Spiriva with 18 mcg INH QDAY #30 [place] 12/08/17 02/08/18 Rx HandiHaler] clopidogrel [Plavix] 75 mg PO DAILY #30 tab 01/25/18 02/08/18 Rx clindamycin HCl 1 cap PO TID 02/07/18 02/08/18 History clindamycin HCl 300 mg PO QID 7 Days #28 cap 02/07/18 02/08/18 Rx diphenhydramine-acetaminophen 1 tab PO BEDTIME PRN 02/07/18 02/08/18 History [Acetaminophen PM] doxycycline hyclate 100 mg PO BID 02/07/18 02/08/18 History metoprolol succinate 100 mg PO DAILY 02/07/18 02/08/18 History ondansetron [Zofran ODT] 4 mg PO Q4H PRN 02/07/18 02/08/18 History Allergies Allergy/AdvReac Type Severity Reaction Status Date / Time Sulfa (Sulfonamide Allergy Intermediate PRICKLY Verified 01/30/18 08:41 Antibiotics) FEELING ON [SULFA (SULFONAMIDE HER HEAD ANTIBIOTICS)] Penicillins [PENICILLINS] Allergy Unknown RASH Verified 01/30/18 08:41 ANTIBIOTICS Allergy Mild PRICKLY Uncoded 01/30/18 08:41 FEELING ON HER HEAD Review of Systems Review of Systems due to endotracheal tube Exam Vital Signs (past 8 hours): Vital Signs - 8 hr 02/08/18 06:30 02/08/18 06:46 02/08/18 06:50 Temperature Pulse Rate 126 H 121 H 128 H Respiratory Rate 17 91 H Blood Pressure Blood Pressure [Right Arm] 134/118 H Pulse Oximetry 100 02/08/18 07:15 02/08/18 07:20 02/08/18 07:25 Temperature Pulse Rate 109 H 107 H 104 H Respiratory Rate 23 17 18 Blood Pressure Blood Pressure [Right Arm] 105/80 132/90 H Pulse Oximetry 100 100 100 02/08/18 07:30 02/08/18 07:35 02/08/18 07:40 Temperature Pulse Rate 103 H 103 H 98 H Respiratory Rate 23 21 16 Blood Pressure Blood Pressure [Right Arm] 179/83 H 124/89 H Pulse Oximetry 100 100 100 02/08/18 07:45 02/08/18 07:56 02/08/18 08:03 Temperature Pulse Rate 97 H 95 H 93 H Respiratory Rate 17 18 18 Blood Pressure Blood Pressure [Right Arm] 101/80 105/80 89/71 L Pulse Oximetry 100 100 100 02/08/18 08:27 02/08/18 09:06 02/08/18 10:58 Temperature 98.8 F Pulse Rate 96 H 77 Respiratory Rate 14 Blood Pressure 108/65 128/85 H 90/55 L Blood Pressure [Right Arm] Pulse Oximetry 99 02/08/18 11:41 02/08/18 12:00 02/08/18 12:22 Temperature 97.0 F L Pulse Rate 77 87 81 Respiratory Rate 12 20 Blood Pressure 95/62 125/93 H Blood Pressure [Right Arm] Pulse Oximetry 100 02/08/18 13:13 02/08/18 14:04 Temperature 98.1 F 98.9 F Pulse Rate 85 86 Respiratory Rate 16 16 Blood Pressure 81/50 L 90/59 L Blood Pressure [Right Arm] Pulse Oximetry 100 100 Pulse Oximetry 100 Oxygen Delivery Method Mechanical Ventilation Oxygen Flow Rate 35 Narrative Exam Narrative: Patient intubated and sedated on the ventilator in the ICU. She does not arouse to verbal stimuli. Mildly tachycardic but not hypoxic. Obvious subcutaneous emphysema of the right chest wall. Breath sounds are otherwise distant. Abdomen soft, nondistended, nontender Right tube thoracostomy dressing is clean, dry, and intact. Pleur-Evac as no significant drainage. No obvious air leak. Objective Labs Result Diagrams: 02/08/18 11:25 02/08/18 11:25 Labs: Laboratory Results - last 24 hr 02/08/18 02/08/18 02/08/18 07:35 07:35 07:40 WBC 16.8 H D RBC 3.82 L Hgb 11.3 L Hct 34.2 L MCV 89.6 MCH 29.7 MCHC 33.1 RDW 15.5 H Plt Count 658 H Neut % (Auto) 84.0 H Lymph % (Auto) 11.3 L [place] % (Auto) 4.2 Eos % (Auto) 0.1 L Baso % (Auto) 0.4 Neut # (Auto) 23609 H ABG pH 7.17 L* ABG pCO2 63.1 H* ABG pO2 141 H ABG HCO3 23 ABG Total CO2 25 ABG O2 Saturation 98 ABG Base Excess -6.0 L FiO2 50 Sodium Potassium Chloride Carbon Dioxide BUN Creatinine Estimated GFR BUN/Creatinine Ratio Glucose Lactate 2.4 H Calcium Total Bilirubin AST ALT Alkaline Phosphatase B-Natriuretic Peptide 253.0 H Total Protein Albumin Globulin Albumin/Globulin Ratio Procalcitonin Urine Color Urine Appearance Urine pH Ur Specific [place] Urine Protein Urine Glucose (UA) Urine Ketones Urine Occult Blood Urine Nitrate Urine Bilirubin Urine Urobilinogen Ur Leukocyte Esterase Urine RBC Urine WBC Urine Bacteria Ur Culture Indicated? Micro UA Comment 02/08/18 02/08/18 02/08/18 07:40 07:40 08:32 WBC RBC Hgb Hct MCV MCH MCHC RDW Plt Count Neut % (Auto) Lymph % (Auto) [place] % (Auto) Eos % (Auto) Baso % (Auto) Neut # (Auto) ABG pH ABG pCO2 ABG pO2 ABG HCO3 ABG Total CO2 ABG O2 Saturation ABG Base Excess FiO2 Sodium 139 Potassium 3.5 Chloride 107 Carbon Dioxide 22 BUN 19 H Creatinine 0.60 Estimated GFR > 60.0 BUN/Creatinine Ratio 31.7 H Glucose 137 H Lactate Calcium 7.6 L Total Bilirubin 0.5 AST 116 H ALT 30 Alkaline Phosphatase 51 B-Natriuretic Peptide Total Protein 5.9 L Albumin 2.9 L Globulin 3.0 Albumin/Globulin Ratio 1.0 Procalcitonin < 0.05 Urine Color Yellow Urine Appearance Clear Urine pH 6.0 Ur Specific [place] 1.020 Urine Protein Negative Urine Glucose (UA) Negative Urine Ketones Negative Urine Occult Blood Negative Urine Nitrate Negative Urine Bilirubin Negative Urine Urobilinogen 0.2 Ur Leukocyte Esterase Negative Urine RBC None seen Urine WBC None seen Urine Bacteria None seen Ur Culture Indicated? Cult not indicated Micro UA Comment Microscopic normal 02/08/18 02/08/18 02/08/18 11:25 11:25 11:25 WBC 14.6 H RBC 3.74 L Hgb 11.0 L Hct 33.5 L MCV 89.4 MCH 29.4 MCHC 32.9 RDW 16.0 H Plt Count 609 H Neut % (Auto) 89.5 H Lymph % (Auto) 5.8 L [place] % (Auto) 4.5 Eos % (Auto) 0.0 L Baso % (Auto) 0.2 Neut # (Auto) 47407 H ABG pH ABG pCO2 ABG pO2 ABG HCO3 ABG Total CO2 ABG O2 Saturation ABG Base Excess FiO2 Sodium 139 Potassium 4.0 Chloride 107 Carbon Dioxide 22 BUN 19 H Creatinine 0.60 Estimated GFR > 60.0 BUN/Creatinine Ratio 31.7 H Glucose 101 Lactate 3.5 H Calcium 7.8 L Total Bilirubin 0.3 AST 40 H ALT 27 Alkaline Phosphatase 54 B-Natriuretic Peptide Total Protein 5.7 L Albumin 2.9 L Globulin 2.8 Albumin/Globulin Ratio 1.0 Procalcitonin Urine Color Urine Appearance Urine pH Ur Specific [place] Urine Protein Urine Glucose (UA) Urine Ketones Urine Occult Blood Urine Nitrate Urine Bilirubin Urine Urobilinogen Ur Leukocyte Esterase Urine RBC Urine WBC Urine Bacteria Ur Culture Indicated? Micro UA Comment 02/08/18 11:25 WBC RBC Hgb Hct MCV MCH MCHC RDW Plt Count Neut % (Auto) Lymph % (Auto) [place] % (Auto) Eos % (Auto) Baso % (Auto) Neut # (Auto) ABG pH 7.27 L* ABG pCO2 39.9 ABG pO2 103 ABG HCO3 18 L ABG Total CO2 19 L ABG O2 Saturation 97 ABG Base Excess -9.0 L FiO2 35 Sodium Potassium Chloride Carbon Dioxide BUN Creatinine Estimated GFR BUN/Creatinine Ratio Glucose Lactate Calcium Total Bilirubin AST ALT Alkaline Phosphatase B-Natriuretic Peptide Total Protein Albumin Globulin Albumin/Globulin Ratio Procalcitonin Urine Color Urine Appearance Urine pH Ur Specific [place] Urine Protein Urine Glucose (UA) Urine Ketones Urine Occult Blood Urine Nitrate Urine Bilirubin Urine Urobilinogen Ur Leukocyte Esterase Urine RBC Urine WBC Urine Bacteria Ur Culture Indicated? Micro UA Comment Assessment & Plan Plan: Plan: 62-year-old female status post intubation and urgent central venous access due to respiratory failure and instability subsequently complicated by right pneumothorax. Right tube thoracostomy was performed per the emergency room staff, and postprocedure chest x-ray shows the central line as well as the chest tube to be in good position. Pneumothorax is mostly resolved with the tube in place. At this point I would recommend leaving the chest tube in place to 20 cm water suction until such time the patient is successfully extubated and stable from a respiratory standpoint. Recommend leaving the tube in place while she is receiving positive pressure ventilation. We will continue to follow her during this admission until such time we can remove the chest tube safely following extubation and after complete resolution of the pneumothorax. Case discussed with the nursing staff in the ICU as well as Dr. Butler.
--- NOTE | 2018-02-08 14:25 | P.CONS_ITS ---
History of Present Illness Date Patient Seen: 02/08/18 Time Patient Seen: 09:30 Chief complaint: SOB Reason for consult: Right tube thoracostomy Requesting provider: Wagner Butler Narrative: 62-year-old female with significant smoking history and advanced COPD who presented to the emergency department with progressive symptoms of shortness of breath. Patient required urgent intubation and IV access given her significant hypoxia and respiratory failure. Following intubation a right internal jugular vein central venous catheter was inserted per the emergency room staff. Postprocedure chest film demonstrated a right pneumothorax. Right tube thoracostomy was performed in the emergency department by the ER staff. Patient was subsequently stabilized and admitted per the internal medicine service to the intensive care unit for ongoing management of her respiratory issues and other comorbid medical conditions. Surgical consultation is now obtained to manage the tube thoracostomy. I can obtain no further history from the patient as she is intubated and sedated. Entire history is obtained from the chart as above. 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 Mother No problems noted. Social History household members: spouse lives independently: Yes caregiver/support person: Yes other: She says she quit smoking today Smoking Status: Current every day smoker Meds Home Medications Medication Instructions Recorded Confirmed Type phenytoin sodium extended 200 mg PO QDAY #0 05/30/17 02/08/18 History [Dilantin Extended] atorvastatin [Lipitor] 20 mg PO HS #30 tab 12/08/17 02/08/18 Rx furosemide [Lasix] 20 mg PO QDAY #30 tab 12/08/17 02/08/18 Rx tiotropium bromide [Spiriva with 18 mcg INH QDAY #30 [place] 12/08/17 02/08/18 Rx HandiHaler] clopidogrel [Plavix] 75 mg PO DAILY #30 tab 01/25/18 02/08/18 Rx clindamycin HCl 1 cap PO TID 02/07/18 02/08/18 History clindamycin HCl 300 mg PO QID 7 Days #28 cap 02/07/18 02/08/18 Rx diphenhydramine-acetaminophen 1 tab PO BEDTIME PRN 02/07/18 02/08/18 History [Acetaminophen PM] doxycycline hyclate 100 mg PO BID 02/07/18 02/08/18 History metoprolol succinate 100 mg PO DAILY 02/07/18 02/08/18 History ondansetron [Zofran ODT] 4 mg PO Q4H PRN 02/07/18 02/08/18 History Allergies Allergy/AdvReac Type Severity Reaction Status Date / Time Sulfa (Sulfonamide Allergy Intermediate PRICKLY Verified 01/30/18 08:41 Antibiotics) FEELING ON [SULFA (SULFONAMIDE HER HEAD ANTIBIOTICS)] Penicillins [PENICILLINS] Allergy Unknown RASH Verified 01/30/18 08:41 ANTIBIOTICS Allergy Mild PRICKLY Uncoded 01/30/18 08:41 FEELING ON HER HEAD Review of Systems Review of Systems due to endotracheal tube Exam Vital Signs (past 8 hours): Vital Signs - 8 hr 3 02/08/18 06:30 02/08/18 06:46 02/08/18 06:50 Temperature Pulse Rate 126 H 121 H 128 H Respiratory Rate 17 91 H Blood Pressure Blood Pressure [Right Arm] 134/118 H Pulse Oximetry 100 3 02/08/18 07:15 02/08/18 07:20 02/08/18 07:25 Temperature Pulse Rate 109 H 107 H 104 H Respiratory Rate 23 17 18 Blood Pressure Blood Pressure [Right Arm] 105/80 132/90 H Pulse Oximetry 100 100 100 3 02/08/18 07:30 02/08/18 07:35 02/08/18 07:40 Temperature Pulse Rate 103 H 103 H 98 H Respiratory Rate 23 21 16 Blood Pressure Blood Pressure [Right Arm] 179/83 H 124/89 H Pulse Oximetry 100 100 100 3 02/08/18 07:45 02/08/18 07:56 02/08/18 08:03 Temperature Pulse Rate 97 H 95 H 93 H Respiratory Rate 17 18 18 Blood Pressure Blood Pressure [Right Arm] 101/80 105/80 89/71 L Pulse Oximetry 100 100 100 3 02/08/18 08:27 02/08/18 09:06 02/08/18 10:58 Temperature 98.8 F Pulse Rate 96 H 77 Respiratory Rate 14 Blood Pressure 108/65 128/85 H 90/55 L Blood Pressure [Right Arm] Pulse Oximetry 99 3 02/08/18 11:41 02/08/18 12:00 02/08/18 12:22 Temperature 97.0 F L Pulse Rate 77 87 81 Respiratory Rate 12 20 Blood Pressure 95/62 125/93 H Blood Pressure [Right Arm] Pulse Oximetry 100 3 02/08/18 13:13 02/08/18 14:04 Temperature 98.1 F 98.9 F Pulse Rate 85 86 Respiratory Rate 16 16 Blood Pressure 81/50 L 90/59 L Blood Pressure [Right Arm] Pulse Oximetry 100 100 Pulse Oximetry 100 Oxygen Delivery Method Mechanical Ventilation Oxygen Flow Rate 35 Narrative Exam Narrative: Patient intubated and sedated on the ventilator in the ICU. She does not arouse to verbal stimuli. Mildly tachycardic but not hypoxic. Obvious subcutaneous emphysema of the right chest wall. Breath sounds are otherwise distant. Abdomen soft, nondistended, nontender Right tube thoracostomy dressing is clean, dry, and intact. Pleur-Evac as no significant drainage. No obvious air leak. Objective Labs Result Diagrams: 02/08/18 11:25 02/08/18 11:25 Labs: Laboratory Results - last 24 hr 02/08/18 02/08/18 02/08/18 07:35 07:35 07:40 WBC 16.8 H D RBC 3.82 L Hgb 11.3 L Hct 34.2 L MCV 89.6 MCH 29.7 MCHC 33.1 RDW 15.5 H Plt Count 658 H Neut % (Auto) 84.0 H Lymph % (Auto) 11.3 L [place] % (Auto) 4.2 Eos % (Auto) 0.1 L Baso % (Auto) 0.4 Neut # (Auto) 87869 H ABG pH 7.17 L* ABG pCO2 63.1 H* ABG pO2 141 H ABG HCO3 23 ABG Total CO2 25 ABG O2 Saturation 98 ABG Base Excess -6.0 L FiO2 50 Sodium Potassium Chloride Carbon Dioxide BUN Creatinine Estimated GFR BUN/Creatinine Ratio Glucose Lactate 2.4 H Calcium Total Bilirubin AST ALT Alkaline Phosphatase B-Natriuretic Peptide 253.0 H Total Protein Albumin Globulin Albumin/Globulin Ratio Procalcitonin Urine Color Urine Appearance Urine pH Ur Specific [place] Urine Protein Urine Glucose (UA) Urine Ketones Urine Occult Blood Urine Nitrate Urine Bilirubin Urine Urobilinogen Ur Leukocyte Esterase Urine RBC Urine WBC Urine Bacteria Ur Culture Indicated? Micro UA Comment 02/08/18 02/08/18 02/08/18 07:40 07:40 08:32 WBC RBC Hgb Hct MCV MCH MCHC RDW Plt Count Neut % (Auto) Lymph % (Auto) [place] % (Auto) Eos % (Auto) Baso % (Auto) Neut # (Auto) ABG pH ABG pCO2 ABG pO2 ABG HCO3 ABG Total CO2 ABG O2 Saturation ABG Base Excess FiO2 Sodium 139 Potassium 3.5 Chloride 107 Carbon Dioxide 22 BUN 19 H Creatinine 0.60 Estimated GFR > 60.0 BUN/Creatinine Ratio 31.7 H Glucose 137 H Lactate Calcium 7.6 L Total Bilirubin 0.5 AST 116 H ALT 30 Alkaline Phosphatase 51 B-Natriuretic Peptide Total Protein 5.9 L Albumin 2.9 L Globulin 3.0 Albumin/Globulin Ratio 1.0 Procalcitonin < 0.05 Urine Color Yellow Urine Appearance Clear Urine pH 6.0 Ur Specific [place] 1.020 Urine Protein Negative Urine Glucose (UA) Negative Urine Ketones Negative Urine Occult Blood Negative Urine Nitrate Negative Urine Bilirubin Negative Urine Urobilinogen 0.2 Ur Leukocyte Esterase Negative Urine RBC None seen Urine WBC None seen Urine Bacteria None seen Ur Culture Indicated? Cult not indicated Micro UA Comment Microscopic normal 02/08/18 02/08/18 02/08/18 11:25 11:25 11:25 WBC 14.6 H RBC 3.74 L Hgb 11.0 L Hct 33.5 L MCV 89.4 MCH 29.4 MCHC 32.9 RDW 16.0 H Plt Count 609 H Neut % (Auto) 89.5 H Lymph % (Auto) 5.8 L [place] % (Auto) 4.5 Eos % (Auto) 0.0 L Baso % (Auto) 0.2 Neut # (Auto) 25853 H ABG pH ABG pCO2 ABG pO2 ABG HCO3 ABG Total CO2 ABG O2 Saturation ABG Base Excess FiO2 Sodium 139 Potassium 4.0 Chloride 107 Carbon Dioxide 22 BUN 19 H Creatinine 0.60 Estimated GFR > 60.0 BUN/Creatinine Ratio 31.7 H Glucose 101 Lactate 3.5 H Calcium 7.8 L Total Bilirubin 0.3 AST 40 H ALT 27 Alkaline Phosphatase 54 B-Natriuretic Peptide Total Protein 5.7 L Albumin 2.9 L Globulin 2.8 Albumin/Globulin Ratio 1.0 Procalcitonin Urine Color Urine Appearance Urine pH Ur Specific [place] Urine Protein Urine Glucose (UA) Urine Ketones Urine Occult Blood Urine Nitrate Urine Bilirubin Urine Urobilinogen Ur Leukocyte Esterase Urine RBC Urine WBC Urine Bacteria Ur Culture Indicated? Micro UA Comment 02/08/18 11:25 WBC RBC Hgb Hct MCV MCH MCHC RDW Plt Count Neut % (Auto) Lymph % (Auto) [place] % (Auto) Eos % (Auto) Baso % (Auto) Neut # (Auto) ABG pH 7.27 L* ABG pCO2 39.9 ABG pO2 103 ABG HCO3 18 L ABG Total CO2 19 L ABG O2 Saturation 97 ABG Base Excess -9.0 L FiO2 35 Sodium Potassium Chloride Carbon Dioxide BUN Creatinine Estimated GFR BUN/Creatinine Ratio Glucose Lactate Calcium Total Bilirubin AST ALT Alkaline Phosphatase B-Natriuretic Peptide Total Protein Albumin Globulin Albumin/Globulin Ratio Procalcitonin Urine Color Urine Appearance Urine pH Ur Specific [place] Urine Protein Urine Glucose (UA) Urine Ketones Urine Occult Blood Urine Nitrate Urine Bilirubin Urine Urobilinogen Ur Leukocyte Esterase Urine RBC Urine WBC Urine Bacteria Ur Culture Indicated? Micro UA Comment Assessment & Plan Plan: Plan: 62-year-old female status post intubation and urgent central venous access due to respiratory failure and instability subsequently complicated by right pneumothorax. Right tube thoracostomy was performed per the emergency room staff, and postprocedure chest x-ray shows the central line as well as the chest tube to be in good position. Pneumothorax is mostly resolved with the tube in place. At this point I would recommend leaving the chest tube in place to 20 cm water suction until such time the patient is successfully extubated and stable from a respiratory standpoint. Recommend leaving the tube in place while she is receiving positive pressure ventilation. We will continue to follow her during this admission until such time we can remove the chest tube safely following extubation and after complete resolution of the pneumothorax. Case discussed with the nursing staff in the ICU as well as Dr. Butler.
[2018-02-08] MEDS: diphenhydrAMINE 50 MG/ML VIAL 25 MG IV (14:52)
[2018-02-08] MEDS: SODIUM CHLORIDE 0.9% 500 ML 1000 ML IV (17:28)
[2018-02-08 17:31] LABS: Lactate 2HR (Lactic Acid Rflx) 2.2 mmol/L (0.7-2.1)
--- NOTE | 2018-02-08 18:55 | PC.NURSE ---
Addendum entered by Porsha Price R.N. 02/08/18 19:35: 1930 - Pt agitated. Continues to c/o throat pain. Pt able to write on note, I am miserable, and it is not okay. Dilaudid given. propofol continues to infuse at 10mcg/kg/min. BP following dilaudid 71/49 MAP of 58, pt watching TV, Reinforced safety and repeated request for pt not to pull on tubes and wires. Monitor. Original Note: Addendum entered by Porsha Price R.N. 02/08/18 19:08: 1908 - Dr. Butler updated about pt vital signs, LOC and reviewed sedation and pain rx. No new orders. Original Note: 1530 - Pt bp 73/47 MAP 57, propofol titrated off. Very lightly sedated and responding to questions. Reinforced orientation. 1610 - Increasing restlessness and coughing. Oral care suction. MAP 64, titrate propofol to 10 mcg/kg/min. Monitor. Pt shakes head no to question of pain. Lactate sent to lab. 1700 - BP 77/45 MAP 64, titrated propofol to 7 mcg/kg/min. Dr. Butler notified of current BP, Order obtained. 500cc bolus initiated. 1814 - Pt awake, restless, coughing. Pulling against restraints, reaching for tubes and wires. Nods head yes to question of pain. indicating throat discomfort. Denies pain a chest tube insertion site however pt also grabbing at drsg to right side. Dilaudid 0.2mg given, monitoring for pressure prior to giving full ordered dose.
[2018-02-08] MEDS: PROPOFOL 1,000 MG/10 ML VIAL 8.7 MG IV (22:06)
[2018-02-09] VITALS (18 sets, daily range): BP systolic 79–129; BP diastolic 42–86; PULSE 54–109; RESP 12–50; TEMP 36.4–37.1; O2SAT 85–100
--- NOTE | 2018-02-09 | DI.RAD.S_ITS ---
PROCEDURE: XR CHEST 1V INDICATIONS: f/u after clamping chest tube. Any increase in pneumothorax TECHNIQUE: One view of the chest was acquired. COMPARISON: [facility], CR, XR CHEST 1V, 02/09/2018, 9:44. [facility], CR, XR CHEST 1V, 02/08/2018, 9:26. FINDINGS: Surgical changes and devices: Right chest tube. Right shoulder postoperative change. Lungs and pleura: Trace if any right apical pneumothorax. Severe emphysema with diffuse scarring greatest in the right perihilar lung. Right-sided pleural effusion or pleural scarring. Emphysema. Mediastinum: Mediastinal contours appear normal. Heart size is normal. Bones and chest wall: No suspicious bony lesions. Overlying soft tissues appear unremarkable. IMPRESSION: Trace if any right apical pneumothorax. Emphysema with severe pulmonary scarring greatest in the right perihilar lung. Dictated by: Kumar Rangel M.D. on 02/09/2018 at 17:37 Approved by: Kumar Rangel M.D. on 02/09/2018 at 17:39
[2018-02-09] MEDS: SODIUM CHLORIDE 0.9% 1,000 ML 100 ML IV ×2 (00:35→22:26)
[2018-02-09] MEDS: diphenhydrAMINE 50 MG/ML VIAL 25 MG IV ×2 (00:54→13:58)
--- NOTE | 2018-02-09 01:03 | PC.NURSE ---
Addendum entered by Ashlyn Hill R.N. 02/09/18 06:35: 0600 Pt restless. BP 90s/50s, increasing Propofol to 11mcg.kg/min. 0630 BP 87/53, eyes closed and appears comfortable. Notified MD regarding elevated Troponin, no new orders. Original Note: Addendum entered by Ashlyn Hill R.N. 02/09/18 05:02: 0500 Pt has been resting and had appeared comfortable. Pt now awake for lab draw and became agitated. Wrote a note stating that she hates this place. Asked if she is having any pain, pt writes of course, medicated with prn Dilaudid. Sats remain at 100% on 25% FIO2. Scant serosang drainage in the chest tube tubing. Dressing to chest tube site is CDI. Refuses to reposition, encouraged pt to shift position to offload pressure. Original Note: Addendum entered by Ashlyn Hill R.N. 02/09/18 02:16: 0215 Pt alert, eyes opened and watching TV. Denies pain. RT increased TV to 370, FIO2 remains at 25%, sats 100%. Pt declines oral care, writes on paper that oral care makes her cough and then she gets increased SOB with cough. Pt declines repositioning, seems to want to be left alone. Close monitoring of pt. Original Note: Addendum entered by Ashlyn Hill R.N. 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 Propofol infusing at 10mg/hr. Medicated with prn Dilaudid. right wrist restraint in place, pt using the TV remote indep. Occasional cough, sats 100%, vent setting remain at FIO2 25%, PEEP 5, RR 12, TV 350, slightly coarse to left bases, dim throughout Right lung with few exp wheezes throughout. 0100 Pt appears uncomfortable, able to write that she has itchy bottom and that pain medication does not help, per pt this itching is new since being in the hospital. Medicated with Benadryl. Pt also lets this RN know that she would really like to be extubated.
[2018-02-09] MEDS: ALBUTEROL HFA 60 PUFF/8 GM INH 8 PUFF INH ×2 (01:55→05:15)
[2018-02-09] MEDS: IPRATROPIUM HFA 8 PUFF INH ×2 (01:55→05:15)
[2018-02-09] MEDS: HYDROMORPHONE 0.5 MG INJ IV ×3 (04:59→13:51)
[2018-02-09 05:29] LABS: INR 1.1 (0.9-1.3)
[2018-02-09 05:37] LABS: Add Manual Diff / Slide Review NO; Basophils Percent Auto 0.1 % (0-2); Hematocrit 31.4 % (36-46); Hemoglobin 10.6 g/dL (12.0-16.0); Lymphocytes Percent Auto 10.3 % (25-40); Mean Corpuscular HGB Conc 33.8 % (30-36); Mean Corpuscular Hemoglobin 30.2 PG (26-34); Mean Corpuscular Volume 89.2 fL (80-100); Neutrophils Absolute Auto 12400 /uL (3000-5900); Neutrophils Percent Auto 83.6 % (50-75); Platelet Count 538 X10^3/uL (150-400); Red Blood Cell Count 3.52 X10^6/uL (4.0-5.2); Red Cell Distribution Width 15.4 % (11.6-14.8); White Blood Cell Count 14.9 X10^3/uL (4.5-11.0)
[2018-02-09 05:39] LABS: Alanine Aminotransferase 35 IU/L (9-52); Albumin 2.5 g/dL (3.5-5.0); Albumin Globulin Ratio 0.9 (1.0-2.8); Alkaline Phosphatase 49 U/L (38-126); Aspartate Aminotransferase 43 IU/L (14-36); Bilirubin Total 0.2 mg/dL (0.2-1.3); Blood Urea Nitrogen 13 mg/dL (7-17); Calcium 7.6 mg/dL (8.4-10.2); Carbon Dioxide 22 mmol/L (22-32); Chloride 108 mmol/L (98-107); Estimated Glomerular Filt Rate > 60.0 mL/min (>60); Globulin 2.8 g/dL (1.7-4.1); Glucose 100 mg/dL (80-110); HEMOLYSIS < 15 (0-50); Sodium 138 mmol/L (137-145); Total Protein 5.3 g/dL (6.3-8.2)
[2018-02-09 06:19] LABS: Troponin I 0.174 ng/mL (0.01-0.034)
--- NOTE | 2018-02-09 08:38 | PM.PN.1 ---
Subjective Date Patient Seen: 02/09/18 Time Patient Seen: 08:38 Interval history: More awake this morning more cooperative wanting the tube out Exam Vital Signs (past 8 hours): Vital Signs - 8 hr 02/09/18 01:00 02/09/18 02:00 02/09/18 03:00 Temperature Pulse Rate 72 63 68 Respiratory Rate 12 12 12 Blood Pressure 93/54 L 104/66 82/42 L Pulse Oximetry 100 100 100 02/09/18 05:00 02/09/18 06:00 Temperature 98.7 F Pulse Rate 60 62 Respiratory Rate 12 12 Blood Pressure 92/52 L 96/55 L Pulse Oximetry 100 100 Pulse Oximetry 100 Fraction of Inspired Oxygen 25 Oxygen Delivery Method Mechanical Ventilation Oxygen Flow Rate 35 Narrative Exam Narrative: Patient awake and cooperative she is indicating she wants her endotracheal tube out. She still is requiring mechanical ventilation but seems doing much better Lungs mild wheezing mildly prolonged expiratory phase much improved Heart regular rhythm Abdomen soft thin very thin nontender Extremities left lower extremity amputation noted as before Neuro exam more awake and alert cooperative Skin warm and dry Objective Labs Result Diagrams: 02/09/18 04:50 02/09/18 04:50 Labs: Laboratory Results - last 24 hr 02/08/18 02/08/18 02/08/18 07:35 07:40 08:32 WBC RBC Hgb Hct MCV MCH MCHC RDW Plt Count Neut % (Auto) Lymph % (Auto) [place] % (Auto) Eos % (Auto) Baso % (Auto) Neut # (Auto) PT INR ABG pH 7.17 L* ABG pCO2 63.1 H* ABG pO2 141 H ABG HCO3 23 ABG Total CO2 25 ABG O2 Saturation 98 ABG Base Excess -6.0 L FiO2 50 Sodium Potassium Chloride Carbon Dioxide BUN Creatinine Estimated GFR BUN/Creatinine Ratio Glucose Lactate Calcium Total Bilirubin AST ALT Alkaline Phosphatase Troponin I B-Natriuretic Peptide 253.0 H Total Protein Albumin Globulin Albumin/Globulin Ratio Urine Color Yellow Urine Appearance Clear Urine pH 6.0 Ur Specific [place] 1.020 Urine Protein Negative Urine Glucose (UA) Negative Urine Ketones Negative Urine Occult Blood Negative Urine Nitrate Negative Urine Bilirubin Negative Urine Urobilinogen 0.2 Ur Leukocyte Esterase Negative Urine RBC None seen Urine WBC None seen Urine Bacteria None seen Ur Culture Indicated? Cult not indicated Micro UA Comment Microscopic normal Nasal Screen MRSA (PCR) 02/08/18 02/08/1818 11:25 11:25 11:25 WBC 14.6 H RBC 3.74 L Hgb 11.0 L Hct 33.5 L MCV 89.4 MCH 29.4 MCHC 32.9 RDW 16.0 H Plt Count 609 H Neut % (Auto) 89.5 H Lymph % (Auto) 5.8 L [place] % (Auto) 4.5 Eos % (Auto) 0.0 L Baso % (Auto) 0.2 Neut # (Auto) 34083 H PT INR ABG pH ABG pCO2 ABG pO2 ABG HCO3 ABG Total CO2 ABG O2 Saturation ABG Base Excess FiO2 Sodium 139 Potassium 4.0 Chloride 107 Carbon Dioxide 22 BUN 19 H Creatinine 0.60 Estimated GFR > 60.0 BUN/Creatinine Ratio 31.7 H Glucose 101 Lactate 3.5 H Calcium 7.8 L Total Bilirubin 0.3 AST 40 H ALT 27 Alkaline Phosphatase 54 Troponin I B-Natriuretic Peptide Total Protein 5.7 L Albumin 2.9 L Globulin 2.8 Albumin/Globulin Ratio 1.0 Urine Color Urine Appearance Urine pH Ur Specific [place] Urine Protein Urine Glucose (UA) Urine Ketones Urine Occult Blood Urine Nitrate Urine Bilirubin Urine Urobilinogen Ur Leukocyte Esterase Urine RBC Urine WBC Urine Bacteria Ur Culture Indicated? Micro UA Comment Nasal Screen MRSA (PCR) 02/08/18 02/08/18 02/08/18 11:25 16:04 16:05 WBC RBC Hgb Hct MCV MCH MCHC RDW Plt Count Neut % (Auto) Lymph % (Auto) [place] % (Auto) Eos % (Auto) Baso % (Auto) Neut # (Auto) PT INR ABG pH 7.27 L* ABG pCO2 39.9 ABG pO2 103 ABG HCO3 18 L ABG Total CO2 19 L ABG O2 Saturation 97 ABG Base Excess -9.0 L FiO2 35 Sodium Potassium Chloride Carbon Dioxide BUN Creatinine Estimated GFR BUN/Creatinine Ratio Glucose Lactate 2.2 H Calcium Total Bilirubin AST ALT Alkaline Phosphatase Troponin I B-Natriuretic Peptide Total Protein Albumin Globulin Albumin/Globulin Ratio Urine Color Urine Appearance Urine pH Ur Specific [place] Urine Protein Urine Glucose (UA) Urine Ketones Urine Occult Blood Urine Nitrate Urine Bilirubin Urine Urobilinogen Ur Leukocyte Esterase Urine RBC Urine WBC Urine Bacteria Ur Culture Indicated? Micro UA Comment Nasal Screen MRSA (PCR) Negative for mrsa 02/09/18 02/09/18 02/09/18 04:50 04:50 04:50 WBC 14.9 H RBC 3.52 L Hgb 10.6 L Hct 31.4 L MCV 89.2 MCH 30.2 MCHC 33.8 RDW 15.4 H Plt Count 538 H Neut % (Auto) 83.6 H Lymph % (Auto) 10.3 L [place] % (Auto) 6.0 Eos % (Auto) 0.0 L Baso % (Auto) 0.1 Neut # (Auto) 62531 H PT 12.0 INR 1.1 ABG pH ABG pCO2 ABG pO2 ABG HCO3 ABG Total CO2 ABG O2 Saturation ABG Base Excess FiO2 Sodium 138 Potassium 4.0 Chloride 108 H Carbon Dioxide 22 BUN 13 Creatinine 0.50 L Estimated GFR > 60.0 BUN/Creatinine Ratio 26.0 H Glucose 100 Lactate Calcium 7.6 L Total Bilirubin 0.2 AST 43 H ALT 35 Alkaline Phosphatase 49 Troponin I 0.174 H* B-Natriuretic Peptide Total Protein 5.3 L Albumin 2.5 L Globulin 2.8 Albumin/Globulin Ratio 0.9 L Urine Color Urine Appearance Urine pH Ur Specific [place] Urine Protein Urine Glucose (UA) Urine Ketones Urine Occult Blood Urine Nitrate Urine Bilirubin Urine Urobilinogen Ur Leukocyte Esterase Urine RBC Urine WBC Urine Bacteria Ur Culture Indicated? Micro UA Comment Nasal Screen MRSA (PCR) Assessment & Plan Plan: Plan: One. Acute respiratory failure requiring intubation and mechanical ventilation placed secondary to COPD exacerbation possible pneumonia. Improving plan to try spontaneous breathing trial this morning and possible extubation after that 2. COPD exacerbation and pneumonia plan to continue with ventilation sedation antibiotics bronchodilators and IV prednisone Solu-Medrol 3. Persistent nausea off and on and with its inability to gain weight a possibly malnourished. Dietary to take a look at this and concerned about possible mesenteric ischemia this can be addressed once respiratory failure is improved 4. Atherosclerotic peripheral vascular disease patient continues to smoke tobacco she really needs to stop before any other interventions vascularly can be considered. We will continue with the Plavix plan going to hold it today because of the oozing from the right right IJ site. Her INR is also mildly elevated her liver enzymes also mildly elevated 5. Mildly elevated liver enzymes improved overnight 6. Tobacco dependence patient will be counseled to stop tobacco when she is awake. 7. DVT prophylaxis because of the bleeding around the IJ site we will hold any anticoagulation initially but will place her on compression stockings and sequential compression stockings. 8. Hypertension resume home medications when appropriate 9. History of seizures plan to continue Dilantin through the OG tube 10. Mildly elevated troponin probably from type 2 DC plan to recheck a troponin
--- NOTE | 2018-02-09 08:42 | P.PN_ITS ---
Subjective Date Patient Seen: 02/09/18 Time Patient Seen: 08:38 Interval history: More awake this morning more cooperative wanting the tube out Exam Vital Signs (past 8 hours): Vital Signs - 8 hr 3 02/09/18 01:00 02/09/18 02:00 02/09/18 03:00 Temperature Pulse Rate 72 63 68 Respiratory Rate 12 12 12 Blood Pressure 93/54 L 104/66 82/42 L Pulse Oximetry 100 100 100 3 02/09/18 05:00 02/09/18 06:00 Temperature 98.7 F Pulse Rate 60 62 Respiratory Rate 12 12 Blood Pressure 92/52 L 96/55 L Pulse Oximetry 100 100 Pulse Oximetry 100 Fraction of Inspired Oxygen 25 Oxygen Delivery Method Mechanical Ventilation Oxygen Flow Rate 35 Narrative Exam Narrative: Patient awake and cooperative she is indicating she wants her endotracheal tube out. She still is requiring mechanical ventilation but seems doing much better Lungs mild wheezing mildly prolonged expiratory phase much improved Heart regular rhythm Abdomen soft thin very thin nontender Extremities left lower extremity amputation noted as before Neuro exam more awake and alert cooperative Skin warm and dry Objective Labs Result Diagrams: 02/09/18 04:50 02/09/18 04:50 Labs: Laboratory Results - last 24 hr 02/08/18 02/08/18 02/08/18 07:35 07:40 08:32 WBC RBC Hgb Hct MCV MCH MCHC RDW Plt Count Neut % (Auto) Lymph % (Auto) [place] % (Auto) Eos % (Auto) Baso % (Auto) Neut # (Auto) PT INR ABG pH 7.17 L* ABG pCO2 63.1 H* ABG pO2 141 H ABG HCO3 23 ABG Total CO2 25 ABG O2 Saturation 98 ABG Base Excess -6.0 L FiO2 50 Sodium Potassium Chloride Carbon Dioxide BUN Creatinine Estimated GFR BUN/Creatinine Ratio Glucose Lactate Calcium Total Bilirubin AST ALT Alkaline Phosphatase Troponin I B-Natriuretic Peptide 253.0 H Total Protein Albumin Globulin Albumin/Globulin Ratio Urine Color Yellow Urine Appearance Clear Urine pH 6.0 Ur Specific Stella 1.020 Urine Protein Negative Urine Glucose (UA) Negative Urine Ketones Negative Urine Occult Blood Negative Urine Nitrate Negative Urine Bilirubin Negative Urine Urobilinogen 0.2 Ur Leukocyte Esterase Negative Urine RBC None seen Urine WBC None seen Urine Bacteria None seen Ur Culture Indicated? Cult not indicated Micro UA Comment Microscopic normal Nasal Screen MRSA (PCR) 06/09/2702/08/18 02/08/18 11:25 11:25 11:25 WBC 14.6 H RBC 3.74 L Hgb 11.0 L Hct 33.5 L MCV 89.4 MCH 29.4 MCHC 32.9 RDW 16.0 H Plt Count 609 H Neut % (Auto) 89.5 H Lymph % (Auto) 5.8 L [place] % (Auto) 4.5 Eos % (Auto) 0.0 L Baso % (Auto) 0.2 Neut # (Auto) 19269 H PT INR ABG pH ABG pCO2 ABG pO2 ABG HCO3 ABG Total CO2 ABG O2 Saturation ABG Base Excess FiO2 Sodium 139 Potassium 4.0 Chloride 107 Carbon Dioxide 22 BUN 19 H Creatinine 0.60 Estimated GFR > 60.0 BUN/Creatinine Ratio 31.7 H Glucose 101 Lactate 3.5 H Calcium 7.8 L Total Bilirubin 0.3 AST 40 H ALT 27 Alkaline Phosphatase 54 Troponin I B-Natriuretic Peptide Total Protein 5.7 L Albumin 2.9 L Globulin 2.8 Albumin/Globulin Ratio 1.0 Urine Color Urine Appearance Urine pH Ur Specific Stella Urine Protein Urine Glucose (UA) Urine Ketones Urine Occult Blood Urine Nitrate Urine Bilirubin Urine Urobilinogen Ur Leukocyte Esterase Urine RBC Urine WBC Urine Bacteria Ur Culture Indicated? Micro UA Comment Nasal Screen MRSA (PCR) 02/08/18 02/08/18 02/08/18 11:25 16:04 16:05 WBC RBC Hgb Hct MCV MCH MCHC RDW Plt Count Neut % (Auto) Lymph % (Auto) [place] % (Auto) Eos % (Auto) Baso % (Auto) Neut # (Auto) PT INR ABG pH 7.27 L* ABG pCO2 39.9 ABG pO2 103 ABG HCO3 18 L ABG Total CO2 19 L ABG O2 Saturation 97 ABG Base Excess -9.0 L FiO2 35 Sodium Potassium Chloride Carbon Dioxide BUN Creatinine Estimated GFR BUN/Creatinine Ratio Glucose Lactate 2.2 H Calcium Total Bilirubin AST ALT Alkaline Phosphatase Troponin I B-Natriuretic Peptide Total Protein Albumin Globulin Albumin/Globulin Ratio Urine Color Urine Appearance Urine pH Ur Specific Stella Urine Protein Urine Glucose (UA) Urine Ketones Urine Occult Blood Urine Nitrate Urine Bilirubin Urine Urobilinogen Ur Leukocyte Esterase Urine RBC Urine WBC Urine Bacteria Ur Culture Indicated? Micro UA Comment Nasal Screen MRSA (PCR) Negative for mrsa 02/09/18 02/09/18 02/09/18 04:50 04:50 04:50 WBC 14.9 H RBC 3.52 L Hgb 10.6 L Hct 31.4 L MCV 89.2 MCH 30.2 MCHC 33.8 RDW 15.4 H Plt Count 538 H Neut % (Auto) 83.6 H Lymph % (Auto) 10.3 L [place] % (Auto) 6.0 Eos % (Auto) 0.0 L Baso % (Auto) 0.1 Neut # (Auto) 94001 H PT 12.0 INR 1.1 ABG pH ABG pCO2 ABG pO2 ABG HCO3 ABG Total CO2 ABG O2 Saturation ABG Base Excess FiO2 Sodium 138 Potassium 4.0 Chloride 108 H Carbon Dioxide 22 BUN 13 Creatinine 0.50 L Estimated GFR > 60.0 BUN/Creatinine Ratio 26.0 H Glucose 100 Lactate Calcium 7.6 L Total Bilirubin 0.2 AST 43 H ALT 35 Alkaline Phosphatase 49 Troponin I 0.174 H* B-Natriuretic Peptide Total Protein 5.3 L Albumin 2.5 L Globulin 2.8 Albumin/Globulin Ratio 0.9 L Urine Color Urine Appearance Urine pH Ur Specific Stella Urine Protein Urine Glucose (UA) Urine Ketones Urine Occult Blood Urine Nitrate Urine Bilirubin Urine Urobilinogen Ur Leukocyte Esterase Urine RBC Urine WBC Urine Bacteria Ur Culture Indicated? Micro UA Comment Nasal Screen MRSA (PCR) Assessment & Plan Plan: Plan: One. Acute respiratory failure requiring intubation and mechanical ventilation placed secondary to COPD exacerbation possible pneumonia. Improving plan to try spontaneous breathing trial this morning and possible extubation after that 2. COPD exacerbation and pneumonia plan to continue with ventilation sedation antibiotics bronchodilators and IV prednisone Solu-Medrol 3. Persistent nausea off and on and with its inability to gain weight a possibly malnourished. Dietary to take a look at this and concerned about possible mesenteric ischemia this can be addressed once respiratory failure is improved 4. Atherosclerotic peripheral vascular disease patient continues to smoke tobacco she really needs to stop before any other interventions vascularly can be considered. We will continue with the Plavix plan going to hold it today because of the oozing from the right right IJ site. Her INR is also mildly elevated her liver enzymes also mildly elevated 5. Mildly elevated liver enzymes improved overnight 6. Tobacco dependence patient will be counseled to stop tobacco when she is awake. 7. DVT prophylaxis because of the bleeding around the IJ site we will hold any anticoagulation initially but will place her on compression stockings and sequential compression stockings. 8. Hypertension resume home medications when appropriate 9. History of seizures plan to continue Dilantin through the OG tube 10. Mildly elevated troponin probably from type 2 OR plan to recheck a troponin
--- NOTE | 2018-02-09 09:30 | PT.IPNOTE ---
patient was suctioned
--- NOTE | 2018-02-09 09:30 | RT ---
Patient was extubated at [address] Butler. Patient did a spontaneous breathing trial and vitals stayed normal and the patients work of breathing was between 16-18 patient is alert and follows comands will continue to reasses.
--- NOTE | 2018-02-09 09:30 | PC.NURSE ---
pt extubated to 2L/NC O2. alert and oriented.
--- NOTE | 2018-02-09 09:45 | DI.RAD.S_ITS ---
PROCEDURE: XR CHEST 1V INDICATIONS: vent TECHNIQUE: One view of the chest was acquired. COMPARISON: [facility], CR, XR CHEST 1V, 02/08/2018, 9:26. [facility], CR, XR CHEST 1V, 02/08/2018, 6:05. FINDINGS: Surgical changes and devices: Right-sided chest tube. Right IJ CVC with tip in the mid SVC. ET tube has been removed. Enteric tube has been removed. Right shoulder postoperative change. Lungs and pleura: No pleural effusions. Tiny apical right-sided pneumothorax. Lungs are clear. Emphysema. Mediastinum: Prominent cardiomediastinal silhouette.. Bones and chest wall: No suspicious bony lesions. Overlying soft tissues appear unremarkable. Right chest wall subcutaneous emphysema. IMPRESSION: 1. Right chest tube with continued improvement of mild tiny right apical pneumothorax. Persistent right chest wall subcutaneous emphysema. 2. ET and enteric tubes have been removed. Dictated by: Kumar Rangel M.D. on 02/09/2018 at 10:01 Approved by: Kumar Rangel M.D. on 02/09/2018 at 10:04
[2018-02-09] MEDS: PHENYTOIN ER 100 MG CAPSULE 200 MG PO (09:59)
[2018-02-09] MEDS: FUROSEMIDE 20 MG TABLET PO (09:59)
[2018-02-09] MEDS: METOPROLOL ER 50 MG TABLET 100 MG PO (09:59)
[2018-02-09] MEDS: Moxifloxacin 400 MG/250 ML PIGGYBACK 250 MG IV (10:00)
[2018-02-09 10:07] LABS: Add Manual Diff / Slide Review NO; Basophils Percent Auto 0.5 % (0-2); Eosinophils Percent Auto 0.2 % (2-4); Hematocrit 32.8 % (36-46); Hemoglobin 10.8 g/dL (12.0-16.0); Lymphocytes Percent Auto 7.1 % (25-40); Mean Corpuscular HGB Conc 32.9 % (30-36); Mean Corpuscular Hemoglobin 28.9 PG (26-34); Monocytes Percent Auto 4.2 % (3-14); Neutrophils Absolute Auto 16100 /uL (3000-5900); Platelet Count 542 X10^3/uL (150-400); Red Blood Cell Count 3.73 X10^6/uL (4.0-5.2); Red Cell Distribution Width 15.9 % (11.6-14.8); White Blood Cell Count 18.3 X10^3/uL (4.5-11.0)
[2018-02-09 10:20] LABS: Alanine Aminotransferase 35 IU/L (9-52); Albumin 2.6 g/dL (3.5-5.0); Albumin Globulin Ratio 0.9 (1.0-2.8); Alkaline Phosphatase 51 U/L (38-126); Aspartate Aminotransferase 50 IU/L (14-36); BUN Creatinine Ratio 32.5 (6-22); Bilirubin Total 0.2 mg/dL (0.2-1.3); Blood Urea Nitrogen 13 mg/dL (7-17); Calcium 7.9 mg/dL (8.4-10.2); Carbon Dioxide 22 mmol/L (22-32); Chloride 109 mmol/L (98-107); Estimated Glomerular Filt Rate > 60.0 mL/min (>60); Globulin 2.8 g/dL (1.7-4.1); Glucose 97 mg/dL (80-110); HEMOLYSIS < 15 (0-50); Sodium 139 mmol/L (137-145); Total Protein 5.4 g/dL (6.3-8.2)
--- NOTE | 2018-02-09 12:29 | PM.PN.1 ---
Subjective Date Patient Seen: 02/09/18 Time Patient Seen: 12:05 Interval history: Patient was removed from the ventilator this morning. She is breathing comfortably and is alert and awake. Chest tube is intact. Exam Vital Signs (past 8 hours): Vital Signs - 8 hr 02/09/18 05:00 02/09/18 06:00 02/09/18 08:00 Temperature 98.7 F 97.6 F Pulse Rate 60 62 54 L Respiratory Rate 12 12 12 Blood Pressure 92/52 L 96/55 L 91/55 L Pulse Oximetry 100 100 100 02/09/18 09:02 02/09/18 10:00 Temperature Pulse Rate 76 Respiratory Rate 20 Blood Pressure 113/60 Pulse Oximetry 98 100 Pulse Oximetry 100 Fraction of Inspired Oxygen 25 Oxygen Delivery Method Mechanical Ventilation Oxygen Flow Rate 24 Narrative Exam Narrative: Very distant breath sounds. Lungs are pretty equal bilaterally. Hyper resonant to percussion. No rales or rhonchi. Chest tube is in place. Heart rapid regular rate and rhythm without murmur gallop. Objective Imaging Chest x-ray: My impression: Tiny wisp of a pneumothorax remains. Otherwise lung was re-expanded. No fluid. Radiologist's impression: Essentially the same as mine. Labs Result Diagrams: 02/09/18 10:00 02/09/18 10:00 Labs: Laboratory Results - last 24 hr 02/08/18 02/08/18 02/09/18 16:04 16:05 04:50 WBC 14.9 H RBC 3.52 L Hgb 10.6 L Hct 31.4 L MCV 89.2 MCH 30.2 MCHC 33.8 RDW 15.4 H Plt Count 538 H Neut % (Auto) 83.6 H Lymph % (Auto) 10.3 L [place] % (Auto) 6.0 Eos % (Auto) 0.0 L Baso % (Auto) 0.1 Neut # (Auto) 95866 H PT INR Sodium Potassium Chloride Carbon Dioxide BUN Creatinine Estimated GFR BUN/Creatinine Ratio Glucose Lactate 2.2 H Calcium Total Bilirubin AST ALT Alkaline Phosphatase Troponin I Total Protein Albumin Globulin Albumin/Globulin Ratio Nasal Screen MRSA (PCR) Negative for mrsa 02/09/18 02/09/18 02/09/18 04:50 04:50 10:00 WBC 18.3 H RBC 3.73 L Hgb 10.8 L Hct 32.8 L MCV 88.0 MCH 28.9 MCHC 32.9 RDW 15.9 H Plt Count 542 H Neut % (Auto) 88.0 H Lymph % (Auto) 7.1 L [place] % (Auto) 4.2 Eos % (Auto) 0.2 L Baso % (Auto) 0.5 Neut # (Auto) 93736 H PT 12.0 INR 1.1 Sodium 138 Potassium 4.0 Chloride 108 H Carbon Dioxide 22 BUN 13 Creatinine 0.50 L Estimated GFR > 60.0 BUN/Creatinine Ratio 26.0 H Glucose 100 Lactate Calcium 7.6 L Total Bilirubin 0.2 AST 43 H ALT 35 Alkaline Phosphatase 49 Troponin I 0.174 H* Total Protein 5.3 L Albumin 2.5 L Globulin 2.8 Albumin/Globulin Ratio 0.9 L Nasal Screen MRSA (PCR) 02/09/18 10:00 WBC RBC Hgb Hct MCV MCH MCHC RDW Plt Count Neut % (Auto) Lymph % (Auto) [place] % (Auto) Eos % (Auto) Baso % (Auto) Neut # (Auto) PT INR Sodium 139 Potassium 4.0 Chloride 109 H Carbon Dioxide 22 BUN 13 Creatinine 0.40 L Estimated GFR > 60.0 BUN/Creatinine Ratio 32.5 H Glucose 97 Lactate Calcium 7.9 L Total Bilirubin 0.2 AST 50 H ALT 35 Alkaline Phosphatase 51 Troponin I Total Protein 5.4 L Albumin 2.6 L Globulin 2.8 Albumin/Globulin Ratio 0.9 L Nasal Screen MRSA (PCR) Assessment & Plan Plan: Plan: The patient had iatrogenic pneumothorax with a chest tube placed by others. On testing there is no movement of the column of water in the air seal chamber suggesting the lung is re-expanded as best it can be. Even so, there is no air leak either. I would like to clamp the tube and repeat an x-ray later today. That way if there is a very slow air leak it will manifest itself is an increased pneumothorax. If none is found we will pull the tube later today.
--- NOTE | 2018-02-09 12:34 | P.PN_ITS ---
Subjective Date Patient Seen: 02/09/18 Time Patient Seen: 12:05 Interval history: Patient was removed from the ventilator this morning. She is breathing comfortably and is alert and awake. Chest tube is intact. Exam Vital Signs (past 8 hours): Vital Signs - 8 hr 3 02/09/18 05:00 02/09/18 06:00 02/09/18 08:00 Temperature 98.7 F 97.6 F Pulse Rate 60 62 54 L Respiratory Rate 12 12 12 Blood Pressure 92/52 L 96/55 L 91/55 L Pulse Oximetry 100 100 100 3 02/09/18 09:02 02/09/18 10:00 Temperature Pulse Rate 76 Respiratory Rate 20 Blood Pressure 113/60 Pulse Oximetry 98 100 Pulse Oximetry 100 Fraction of Inspired Oxygen 25 Oxygen Delivery Method Mechanical Ventilation Oxygen Flow Rate 24 Narrative Exam Narrative: Very distant breath sounds. Lungs are pretty equal bilaterally. Hyper resonant to percussion. No rales or rhonchi. Chest tube is in place. Heart rapid regular rate and rhythm without murmur gallop. Objective Imaging Chest x-ray: My impression: Tiny wisp of a pneumothorax remains. Otherwise lung was re -expanded. No fluid. Radiologist's impression: Essentially the same as mine. Labs Result Diagrams: 02/09/18 10:00 02/09/18 10:00 Labs: Laboratory Results - last 24 hr 02/08/18 02/08/18 02/09/18 16:04 16:05 04:50 WBC 14.9 H RBC 3.52 L Hgb 10.6 L Hct 31.4 L MCV 89.2 MCH 30.2 MCHC 33.8 RDW 15.4 H Plt Count 538 H Neut % (Auto) 83.6 H Lymph % (Auto) 10.3 L [place] % (Auto) 6.0 Eos % (Auto) 0.0 L Baso % (Auto) 0.1 Neut # (Auto) 62865 H PT INR Sodium Potassium Chloride Carbon Dioxide BUN Creatinine Estimated GFR BUN/Creatinine Ratio Glucose Lactate 2.2 H Calcium Total Bilirubin AST ALT Alkaline Phosphatase Troponin I Total Protein Albumin Globulin Albumin/Globulin Ratio Nasal Screen MRSA (PCR) Negative for mrsa 02/09/18 02/09/18 02/09/18 04:50 04:50 10:00 WBC 18.3 H RBC 3.73 L Hgb 10.8 L Hct 32.8 L MCV 88.0 MCH 28.9 MCHC 32.9 RDW 15.9 H Plt Count 542 H Neut % (Auto) 88.0 H Lymph % (Auto) 7.1 L [place] % (Auto) 4.2 Eos % (Auto) 0.2 L Baso % (Auto) 0.5 Neut # (Auto) 76816 H PT 12.0 INR 1.1 Sodium 138 Potassium 4.0 Chloride 108 H Carbon Dioxide 22 BUN 13 Creatinine 0.50 L Estimated GFR > 60.0 BUN/Creatinine Ratio 26.0 H Glucose 100 Lactate Calcium 7.6 L Total Bilirubin 0.2 AST 43 H ALT 35 Alkaline Phosphatase 49 Troponin I 0.174 H* Total Protein 5.3 L Albumin 2.5 L Globulin 2.8 Albumin/Globulin Ratio 0.9 L Nasal Screen MRSA (PCR) 02/09/18 10:00 WBC RBC Hgb Hct MCV MCH MCHC RDW Plt Count Neut % (Auto) Lymph % (Auto) [place] % (Auto) Eos % (Auto) Baso % (Auto) Neut # (Auto) PT INR Sodium 139 Potassium 4.0 Chloride 109 H Carbon Dioxide 22 BUN 13 Creatinine 0.40 L Estimated GFR > 60.0 BUN/Creatinine Ratio 32.5 H Glucose 97 Lactate Calcium 7.9 L Total Bilirubin 0.2 AST 50 H ALT 35 Alkaline Phosphatase 51 Troponin I Total Protein 5.4 L Albumin 2.6 L Globulin 2.8 Albumin/Globulin Ratio 0.9 L Nasal Screen MRSA (PCR) Assessment & Plan Plan: Plan: The patient had iatrogenic pneumothorax with a chest tube placed by others. On testing there is no movement of the column of water in the air seal chamber suggesting the lung is re-expanded as best it can be. Even so, there is no air leak either. I would like to clamp the tube and repeat an x-ray later today. That way if there is a very slow air leak it will manifest itself is an increased pneumothorax. If none is found we will pull the tube later today.
--- NOTE | 2018-02-09 14:36 | CM.DANOTE ---
Addendum entered by ZAYNAB Mackenzie 02/09/18 15:16: RE Pt's Name: Patient goes by Cristhian; her legal name is Evie Malone ALTHOUGH pt says her SS Card says Cristhian Malone, her [place] state DL says Evie Malone, and pt doesn't think she'll be able to get a copy of her CA Cert w/her full legal name on it. This STRUCTURAL STEEL WORKER HELPER printed insurance materials out of [employer]; she is Cristhian Malone in the Medicare system and Tamar Malone in the Medicaid system. Original Note: DCP Assessment: Pt is a 62 yo female, resident of [place]. Pt admitted w/acute respiratory failure, requiring intubation and mechanical ventilation. Pt's PCP is Dr Iverson; Insurance is Medicare/Medicaid. Reviewed chart and spoke w/RN; pt has been having a hard time since admission, agitated, pt able to write and has told nursing staff she has been in pain, hates this place and wants to be extubated. Pt extubated this morning, A+O, able to talk to this STRUCTURAL STEEL WORKER HELPER this afternoon. Pt admitted at the beginning of January for cellulitis, DCP Assessment done 01/25, notes do not indicate where she went upon DC. Pt w/ h/o Signature and multiple stays at [facility]. 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 Met w/pt and partner Satnam Key [phone]; introduced SW role. Pt admits to demanding the tubes be taken out and does not want to be intubated again. This STRUCTURAL STEEL WORKER HELPER suggests pt update POLST and DPOA ppk. Pt agreeable, RN Rosie aware and will contact Dr Butler. Pt would like to be a DNR/do not intubate. Pt appears very frail in bed. Emaciated, recent AKA, and holding her nasal canula outside of her mouth to breath, pt refuses to put canula on. Pt lives w/her partner Nico and their roommate and her child. Roommate provides assistance to both pt/Nico in trade for cost of rent. Nico explains it's been working fairly well, roommate (name?) does not work. Pt requires assist w/ everything per pt. Pt is paralyzed on her left side d/t a stroke many years ago. She uses an electric w/c since her AKA a few months ago. Her most recent baseline: she can self transfer, pull herself up using grab bars or transfer pole. iNco states she will need a SNF if she can't self transfer from w/c; [facility] first choice. Pt has no teeth after her dentures were thrown away (by accident) awhile pt was at [facility], new dentures are being made although Nico unsure he can afford the $1,000 needed for them . Attempted a brief goals of care conversation; how many times have you been in the hospital in the last 6 mo? Pt says at least 5; asked pt, upon her DC, if she wants to continue to return to the hospital/ER whenever she has a medical event? Pt answers yes, i think so, for now. Pt left reviewing a blank POLST. Pt w/Medicare and Medicaid benefit (recent application at [facility] and per records, now active). Placed call to Rebekah at [facility]; she confirmed that pt is out of Medicare days and would need to go to SNF w/Medicaid benefit. [facility] full at this time and may not have openings until next week- mid week. Following closely for coordination of safe DCP. It remains unclear if pt will improve enough to go home w/HH vs another SNF stay? It would be beneficial if goals of care and advanced directives continue to be discussed w/this pt and clarified in order to educate POC/DCP. ZAYNAB Mackenzie
--- NOTE | 2018-02-09 16:03 | CM.DPC ---
DCP Cont: Received note from Dr Maurer that pt will likely DC home Sunday, and will need HH. Met w/pt to review DCP. Pt exclaims passionately that she will never use [facility] again. Pt agreeable to another HH agency, after review of list pt requests [facility]; pt understands they are not open on the weekends. Pt expects to DC home Sunday or Sunday, w/natalie henryr Shantel to transport home. Signed F2F still needed. This MINE FOREMAN faxed HH order and clinical docs, including face sheet to [facility] and left VM re new referral. Following. Need F2F signed. ROSENDO
--- NOTE | 2018-02-09 17:09 | CM.DPNOTE ---
MARLENE reviewed w/pt and SO Nico; verbal agreement obtained per pt's request. ROSENDO
--- NOTE | 2018-02-09 17:26 | PC.NURSE ---
Addendum entered by Porsha Price R.N. 02/09/18 20:55: 1920 - Pt c/o of feeling anxious. Denies pain. I would tell you if I did. States that she feels tired and restless and would like something to help me relax. Dr. Butler notified orders obtained. Original Note: Pt found with O2 cannula off. Extremities cool and cyanotic. Sats obtained 85% on RA. Encouraged pt to leave cannula in place. Pt declines to wear cannula in nares r/t dry nose. Pt places cannula in mouth, but states that she can't stand to have anything around my neck. Holding cannula. Pt declines to leave continuous pulse ox in place. LS with expiratory wheeze to auscultation. Chest tube clamped. Crepitus noted to posterior right shoulder. Encouraged deep breaths. X-ray done. Results pending. Dr. Salazar aware. PT denies pain at this time. Reinforced safety, skin integrity and call light use. Call light in reach.
[2018-02-09] MEDS: ALBUTEROL/IPRATROPIUM 3 ML AMPUL INH (18:35)
[2018-02-09] MEDS: ALPRAZolam 0.25 MG TABLET PO (19:28)
[2018-02-10] VITALS (22 sets, daily range): BP systolic 93–158; BP diastolic 46–99; PULSE 60–110; RESP 21–35; TEMP 36.1–37.6; O2SAT 90–100
--- NOTE | 2018-02-10 01:50 | PC.NURSE ---
Addendum entered by Ashlyn Hill R.N. 02/10/18 04:44: 0415 Pt woke up calling out for air, sat HOB up and increased O2 to 4L, sats slow to increase, pt needs frequent queuing for breathing through nose. RT. Pt very anxious, states I need to calm down, medicating with PRN Xanax. Original Note: power and recovery shift engineer: Pt is drowsy, arouses easily with care. Verbally denies pain. Sats on 2L 99-100%, titrated O2 to 1L with sats 92%. Denies dyspnea while resting. Chest tube clamped. Pt wants to sleep. Bed alarm on.
[2018-02-10] MEDS: ALPRAZolam 0.25 MG TABLET PO ×3 (04:14→17:54)
[2018-02-10] MEDS: ALBUTEROL/IPRATROPIUM 3 ML AMPUL INH ×3 (04:42→18:04)
[2018-02-10 05:23] LABS: Add Manual Diff / Slide Review NO; Basophils Percent Auto 0.2 % (0-2); Hematocrit 37.5 % (36-46); Hemoglobin 12.3 g/dL (12.0-16.0); Mean Corpuscular HGB Conc 32.7 % (30-36); Mean Corpuscular Hemoglobin 29.4 PG (26-34); Monocytes Percent Auto 5.5 % (3-14); Neutrophils Absolute Auto 15500 /uL (3000-5900); Neutrophils Percent Auto 78.3 % (50-75); Platelet Count 591 X10^3/uL (150-400); Red Blood Cell Count 4.17 X10^6/uL (4.0-5.2); Red Cell Distribution Width 16.1 % (11.6-14.8); White Blood Cell Count 19.8 X10^3/uL (4.5-11.0)
[2018-02-10 05:35] LABS: Alanine Aminotransferase 51 IU/L (9-52); Albumin 3.1 g/dL (3.5-5.0); Alkaline Phosphatase 68 U/L (38-126); Aspartate Aminotransferase 108 IU/L (14-36); Bilirubin Total 0.3 mg/dL (0.2-1.3); Blood Urea Nitrogen 10 mg/dL (7-17); Calcium 7.9 mg/dL (8.4-10.2); Carbon Dioxide 25 mmol/L (22-32); Chloride 106 mmol/L (98-107); Estimated Glomerular Filt Rate > 60.0 mL/min (>60); Globulin 3.1 g/dL (1.7-4.1); Glucose 146 mg/dL (80-110); HEMOLYSIS < 15 (0-50); Potassium 3.9 mmol/L (3.4-5.1); Sodium 141 mmol/L (137-145); Total Protein 6.2 g/dL (6.3-8.2)
[2018-02-10] MEDS: SODIUM CHLORIDE 0.9% 1,000 ML 100 ML IV ×2 (05:52→16:47)
[2018-02-10 05:56] LABS: Troponin I 0.427 ng/mL (0.01-0.034)
--- NOTE | 2018-02-10 06:45 | P.PN_ITS ---
Subjective Date Patient Seen: 02/10/18 Time Patient Seen: 06:39 Interval history: Patient was extubated yesterday morning has spent the day off the vent did not have a very restful night and she complains of shortness of breath and chest pain this morning Exam Vital Signs (past 8 hours): Vital Signs - 8 hr 3 02/10/18 00:00 02/10/18 01:30 02/10/18 01:52 Temperature 98 F Pulse Rate 60 Respiratory Rate 24 Blood Pressure 93/46 L Pulse Oximetry 99 94 92 3 02/10/18 04:00 02/10/18 04:48 02/10/18 05:00 Temperature 98 F Pulse Rate 101 H 106 H Respiratory Rate 25 H 35 H Blood Pressure 115/99 H Pulse Oximetry 98 95 Pulse Oximetry 95 Fraction of Inspired Oxygen 25 Oxygen Delivery Method Nasal Cannula Oxygen Flow Rate 3 Narrative Exam Narrative: She is in obvious respiratory distress she is sitting up in bed leaning forward speaking in partial sentences and using accessory muscles HEENT exam no longer intubated OG tube has been removed Oropharynx tried Lungs mild scattered rhonchi prolonged expiratory phase decreased breath sounds throughout Heart regular rhythm Abdomen soft thin Extremities left lower extremity amputation as noted before Neuro exam awake alert cooperative Skin warm and dry Objective Labs Result Diagrams: 02/10/18 04:48 02/10/18 04:48 Labs: Laboratory Results - last 24 hr 02/09/18 02/09/18 02/10/18 10:00 10:00 04:48 WBC 18.3 H 19.8 H RBC 3.73 L 4.17 Hgb 10.8 L 12.3 Hct 32.8 L 37.5 MCV 88.0 90.0 MCH 28.9 29.4 MCHC 32.9 32.7 RDW 15.9 H 16.1 H Plt Count 542 H 591 H Neut % (Auto) 88.0 H 78.3 H Lymph % (Auto) 7.1 L 16.0 L [place] % (Auto) 4.2 5.5 Eos % (Auto) 0.2 L 0.0 L Baso % (Auto) 0.5 0.2 Neut # (Auto) 95468 H 45548 H Sodium 139 Potassium 4.0 Chloride 109 H Carbon Dioxide 22 BUN 13 Creatinine 0.40 L Estimated GFR > 60.0 BUN/Creatinine Ratio 32.5 H Glucose 97 Calcium 7.9 L Total Bilirubin 0.2 AST 50 H ALT 35 Alkaline Phosphatase 51 Troponin I Total Protein 5.4 L Albumin 2.6 L Globulin 2.8 Albumin/Globulin Ratio 0.9 L 02/10/18 04:48 WBC RBC Hgb Hct MCV MCH MCHC RDW Plt Count Neut % (Auto) Lymph % (Auto) [place] % (Auto) Eos % (Auto) Baso % (Auto) Neut # (Auto) Sodium 141 Potassium 3.9 Chloride 106 Carbon Dioxide 25 BUN 10 Creatinine 0.40 L Estimated GFR > 60.0 BUN/Creatinine Ratio 25.0 H Glucose 146 H Calcium 7.9 L Total Bilirubin 0.3 AST 108 H ALT 51 Alkaline Phosphatase 68 Troponin I 0.427 H* Total Protein 6.2 L Albumin 3.1 L Globulin 3.1 Albumin/Globulin Ratio 1.0 Assessment & Plan Plan: Plan: One. Acute respiratory failure requiring intubation and mechanical ventilation placed secondary to COPD exacerbation possible pneumonia. Extubated on February 09 this morning she is having a lot of respiratory distress however she desires not to be reintubated. Will treat this as aggressively as we can without intubation. 2. COPD exacerbation and pneumonia continue antibiotics Solu-Medrol. Supplemental oxygen she has been extubated does not want to be reintubated 3. Persistent nausea off and on and with its inability to gain weight a possibly malnourished. Dietary to take a look at this and concerned about possible mesenteric ischemia this can be addressed once respiratory failure is improved 4. Atherosclerotic peripheral vascular disease patient continues to smoke tobacco she really needs to stop before any other interventions vascularly can be considered. Plan to restart the Plavix 5. Mildly elevated liver enzymes improved overnight 6. Tobacco dependence patient will be counseled to stop tobacco when she is awake. 7. DVT prophylaxis Lovenox to be used 8. Hypertension blood pressure has been a little on the low side but she is taking the beta-kelly 9. History of seizures plan to continue Dilantin 10. Acute non ST elevation myocardial infarction. She does have elevated troponin mildly and has EKG changes Q-waves in inferior leads appeared to be new she has got deepened T-wave inversion in the anterolateral leads. Plan to continue beta-kelly plan to give her bolus of Plavix 300 mg this morning followed by 75 a day. Consider nitroglycerin also if her blood pressure can tolerate it. 11. Code status she at this point would like to be DNR we had a discussion regarding this this morning. She is considering comfort care also but she is not quite there yet. 12. Disposition patient remains critically ill.
[2018-02-10] MEDS: CLOPIDOGREL 300 MG TABLET PO (08:00)
--- NOTE | 2018-02-10 08:00 | DI.RAD.S_ITS ---
PROCEDURE: XR CHEST 1V INDICATIONS: F/U PNEUMOTHORAX TECHNIQUE: One view of the chest was acquired. COMPARISON: [facility], CR, XR CHEST 1V, 02/09/2018, 16:44. FINDINGS: Surgical changes and devices: A right central venous catheter may be slightly coiled within the right internal jugular vein. The tip is projected over the lower SVC. A right thoracostomy tube is present. Lungs and pleura: No pleural effusions or pneumothorax. Lungs are clear. The lung volumes are large and the diaphragms are flattened suggesting emphysema. Mediastinum: Mediastinal contours appear normal. Heart size is normal. Bones and chest wall: No suspicious bony lesions. There is a moderate amount of subcutaneous emphysema in the right chest wall. IMPRESSION: 1. No pneumothorax in the setting of thoracostomy tube. 2. Questionable misplaced right central venous catheter as above, which may be coiled in the inferior internal jugular vein. Dictated by: Lashawn Vernon M.D. on 02/10/2018 at 8:33 Approved by: Lashawn Vernon M.D. on 02/10/2018 at 8:35
[2018-02-10] MEDS: ENOXAPARIN 30 MG/0.3 ML SYRINGE SUBCUT (08:01)
[2018-02-10] MEDS: FUROSEMIDE 20 MG TABLET PO (08:02)
[2018-02-10] MEDS: METOPROLOL ER 50 MG TABLET 100 MG PO (08:03)
[2018-02-10] MEDS: PHENYTOIN ER 100 MG CAPSULE 200 MG PO (08:04)
--- NOTE | 2018-02-10 08:10 | PM.PN.1 ---
Subjective Date Patient Seen: 02/10/18 Time Patient Seen: 08:10 Interval history: Patient's breathing is stable. She is intermittently anxious and short of breath. Exam Vital Signs (past 8 hours): Vital Signs - 8 hr 02/10/18 01:30 02/10/18 01:52 02/10/18 04:00 Temperature 98 F Pulse Rate 60 Respiratory Rate 24 Blood Pressure 93/46 L Pulse Oximetry 94 92 98 02/10/18 04:48 02/10/18 05:00 02/10/18 08:03 Temperature 98 F Pulse Rate 101 H 106 H 94 H Respiratory Rate 25 H 35 H Blood Pressure 115/99 H 158/99 H Pulse Oximetry 95 Pulse Oximetry 95 Fraction of Inspired Oxygen 25 Oxygen Delivery Method Nasal Cannula Oxygen Flow Rate 3 Narrative Exam Narrative: Decreased breath sounds throughout but clearly moving air. Hyper-resonance to percussion Objective Labs Result Diagrams: 02/10/18 04:48 02/10/18 04:48 Labs: Laboratory Results - last 24 hr 02/09/18 02/09/18 02/10/18 10:00 10:00 04:48 WBC 18.3 H 19.8 H RBC 3.73 L 4.17 Hgb 10.8 L 12.3 Hct 32.8 L 37.5 MCV 88.0 90.0 MCH 28.9 29.4 MCHC 32.9 32.7 RDW 15.9 H 16.1 H Plt Count 542 H 591 H Neut % (Auto) 88.0 H 78.3 H Lymph % (Auto) 7.1 L 16.0 L [place] % (Auto) 4.2 5.5 Eos % (Auto) 0.2 L 0.0 L Baso % (Auto) 0.5 0.2 Neut # (Auto) 16085 H 96668 H Sodium 139 Potassium 4.0 Chloride 109 H Carbon Dioxide 22 BUN 13 Creatinine 0.40 L Estimated GFR > 60.0 BUN/Creatinine Ratio 32.5 H Glucose 97 Calcium 7.9 L Total Bilirubin 0.2 AST 50 H ALT 35 Alkaline Phosphatase 51 Troponin I Total Protein 5.4 L Albumin 2.6 L Globulin 2.8 Albumin/Globulin Ratio 0.9 L 02/10/18 04:48 WBC RBC Hgb Hct MCV MCH MCHC RDW Plt Count Neut % (Auto) Lymph % (Auto) [place] % (Auto) Eos % (Auto) Baso % (Auto) Neut # (Auto) Sodium 141 Potassium 3.9 Chloride 106 Carbon Dioxide 25 BUN 10 Creatinine 0.40 L Estimated GFR > 60.0 BUN/Creatinine Ratio 25.0 H Glucose 146 H Calcium 7.9 L Total Bilirubin 0.3 AST 108 H ALT 51 Alkaline Phosphatase 68 Troponin I 0.427 H* Total Protein 6.2 L Albumin 3.1 L Globulin 3.1 Albumin/Globulin Ratio 1.0 Assessment & Plan Plan: Plan: The patient ent appears to have a possible infiltrate developing right lower lobe. Her lung is re-expanded despite having her tube clamped since yesterday. This indicates that her lung leak has sealed. I removed her chest tube this morning and applied a bandage. We will order a chest x-ray for later today to confirm continued re-expansion after removal of chest tube. Patient has sutures that will need to be removed in a week to 10 days. We will sign off if her lung has remained expanded.
--- NOTE | 2018-02-10 08:13 | P.PN_ITS ---
Subjective Date Patient Seen: 02/10/18 Time Patient Seen: 08:10 Interval history: Patient's breathing is stable. She is intermittently anxious and short of breath. Exam Vital Signs (past 8 hours): Vital Signs - 8 hr 3 02/10/18 01:30 02/10/18 01:52 02/10/18 04:00 Temperature 98 F Pulse Rate 60 Respiratory Rate 24 Blood Pressure 93/46 L Pulse Oximetry 94 92 98 3 02/10/18 04:48 02/10/18 05:00 02/10/18 08:03 Temperature 98 F Pulse Rate 101 H 106 H 94 H Respiratory Rate 25 H 35 H Blood Pressure 115/99 H 158/99 H Pulse Oximetry 95 Pulse Oximetry 95 Fraction of Inspired Oxygen 25 Oxygen Delivery Method Nasal Cannula Oxygen Flow Rate 3 Narrative Exam Narrative: Decreased breath sounds throughout but clearly moving air. Hyper-resonance to percussion Objective Labs Result Diagrams: 02/10/18 04:48 02/10/18 04:48 Labs: Laboratory Results - last 24 hr 02/09/18 02/09/18 02/10/18 10:00 10:00 04:48 WBC 18.3 H 19.8 H RBC 3.73 L 4.17 Hgb 10.8 L 12.3 Hct 32.8 L 37.5 MCV 88.0 90.0 MCH 28.9 29.4 MCHC 32.9 32.7 RDW 15.9 H 16.1 H Plt Count 542 H 591 H Neut % (Auto) 88.0 H 78.3 H Lymph % (Auto) 7.1 L 16.0 L [place] % (Auto) 4.2 5.5 Eos % (Auto) 0.2 L 0.0 L Baso % (Auto) 0.5 0.2 Neut # (Auto) 79391 H 04690 H Sodium 139 Potassium 4.0 Chloride 109 H Carbon Dioxide 22 BUN 13 Creatinine 0.40 L Estimated GFR > 60.0 BUN/Creatinine Ratio 32.5 H Glucose 97 Calcium 7.9 L Total Bilirubin 0.2 AST 50 H ALT 35 Alkaline Phosphatase 51 Troponin I Total Protein 5.4 L Albumin 2.6 L Globulin 2.8 Albumin/Globulin Ratio 0.9 L 02/10/18 04:48 WBC RBC Hgb Hct MCV MCH MCHC RDW Plt Count Neut % (Auto) Lymph % (Auto) [place] % (Auto) Eos % (Auto) Baso % (Auto) Neut # (Auto) Sodium 141 Potassium 3.9 Chloride 106 Carbon Dioxide 25 BUN 10 Creatinine 0.40 L Estimated GFR > 60.0 BUN/Creatinine Ratio 25.0 H Glucose 146 H Calcium 7.9 L Total Bilirubin 0.3 AST 108 H ALT 51 Alkaline Phosphatase 68 Troponin I 0.427 H* Total Protein 6.2 L Albumin 3.1 L Globulin 3.1 Albumin/Globulin Ratio 1.0 Assessment & Plan Plan: Plan: The patient ent appears to have a possible infiltrate developing right lower lobe. Her lung is re-expanded despite having her tube clamped since yesterday. This indicates that her lung leak has sealed. I removed her chest tube this morning and applied a bandage. We will order a chest x-ray for later today to confirm continued re-expansion after removal of chest tube. Patient has sutures that will need to be removed in a week to 10 days. We will sign off if her lung has remained expanded.
[2018-02-10 10:08] LABS: Hemoglobin 12.6 g/dL (12.0-16.0); Mean Corpuscular HGB Conc 32.2 % (30-36); Mean Corpuscular Volume 89.9 fL (80-100); Platelet Count 566 X10^3/uL (150-400); Red Blood Cell Count 4.34 X10^6/uL (4.0-5.2); Red Cell Distribution Width 16.1 % (11.6-14.8); White Blood Cell Count 25.4 X10^3/uL (4.5-11.0)
[2018-02-10 10:11] LABS: Add Manual Diff / Slide Review YES
[2018-02-10 10:15] LABS: Alanine Aminotransferase 61 IU/L (9-52); Albumin 3.4 g/dL (3.5-5.0); Albumin Globulin Ratio 1.1 (1.0-2.8); Alkaline Phosphatase 73 U/L (38-126); Aspartate Aminotransferase 93 IU/L (14-36); Bilirubin Total 0.3 mg/dL (0.2-1.3); Blood Urea Nitrogen 12 mg/dL (7-17); Calcium 7.9 mg/dL (8.4-10.2); Carbon Dioxide 28 mmol/L (22-32); Chloride 103 mmol/L (98-107); Estimated Glomerular Filt Rate > 60.0 mL/min (>60); Glucose 192 mg/dL (80-110); HEMOLYSIS 15 (0-50); Potassium 3.7 mmol/L (3.4-5.1); Sodium 140 mmol/L (137-145); Total Protein 6.4 g/dL (6.3-8.2)
--- NOTE | 2018-02-10 10:17 | RT ---
When evaluating the patients respiratory rate status is 25. I started the patient on a nebulizer treatment and she did half the treatment. When patient was extubated yesterday she stated that she did not want to be on any ventilator. I explained to her purse lip breathing a patient brushed my comments away.
[2018-02-10] MEDS: Moxifloxacin 400 MG/250 ML PIGGYBACK 250 MG IV (10:40)
[2018-02-10 11:18] LABS: Neutrophils Absolute Manual 22606 /uL (3000-5900); RBC Morphology Normal Morphology; Total Cells Counted 100
--- NOTE | 2018-02-10 12:28 | PC.NURSE ---
pt aox 3, 2L O2 via NC, O2 sats 96%, respiratory rate 30-40 using accessory muscles and in tripod position, please see charting for full assessment, has been refusing meals and medical interventions to aid in her breathing, RT has offered bi-pap and high flow but she has refused, pt did express that she does not want to intubated, there is a POLST on her bedside table but she was unwilling to discuss it, pt states she wants to be left alone, when asked what interventions she would like she states leave me alone, pt in bed with call light and personal belongings withi violet, WCTM
--- NOTE | 2018-02-10 13:00 | DI.RAD.S_ITS ---
PROCEDURE: XR CHEST 1V INDICATIONS: post tube removal. any recollapse? TECHNIQUE: One view of the chest was acquired. COMPARISON: [facility], CR, XR CHEST 1V, 02/10/2018, 7:58. FINDINGS: Surgical changes and devices: The previously visualized extra loop of the right central venous catheter within the internal jugular vein has been repositioned and is appropriately located. The thoracostomy tube has been removed. Lungs and pleura: No pleural effusions or pneumothorax. Lungs are clear. The lung volumes are large and the diaphragms are flattened suggesting emphysema. Mediastinum: Mediastinal contours appear normal. Heart size is normal. Bones and chest wall: No suspicious bony lesions. Subcutaneous emphysema persists. IMPRESSION: No appreciable pneumothorax after thoracostomy tube removal. Dictated by: Lashawn Vernon M.D. on 02/10/2018 at 13:30 Approved by: Lashawn Vernon M.D. on 02/10/2018 at 13:32
[2018-02-10 15:33] LABS: Troponin I 0.242 ng/mL (0.01-0.034)
--- NOTE | 2018-02-10 18:06 | PC.NURSE ---
1730 - Pt awakened. Anxious, calling out air, air, air. Assist pt to high fowlers. Sats 91% on 2L. Offered breathing [place] pt refuses. Fan provided. Encouraged slow deep breaths. Attempt to assist with anxiety alternatives. Pt irritable, I can't breath. I.S. provided. Continue to provide reassurance and calming measures. at bedside. 1800 - Pt again calling out air. Tri-pod stance in bed. Sat 91% on 2L pt requesting O2 be increased. Turned up to 3L. Again offered breathing treatment. Pt initally agreed however when pt not holding treatment up to her mouth, offered mask, pt declined. Discussed anxiety with pt. Offered xanax to be given when breathing treatment is complete. Pt agreeable and attempts to complete breathing treatment. Xanax provided. Continues to repeat air, air, air.: Blinds open and lights turned up to help with pt feeling of clausterphobia. Pt request staff leave the room. Call light in reach. Bed alarm on.
[2018-02-11] VITALS (11 sets, daily range): BP systolic 100–153; BP diastolic 62–88; PULSE 58–93; RESP 14–34; TEMP 36.2–36.6; O2SAT 93–99; BMI 13.5
--- NOTE | 2018-02-11 | DI.RAD.S_ITS ---
PROCEDURE: XR CHEST 1V INDICATIONS: f/u. Is there a pneumothorax? TECHNIQUE: One view of the chest was acquired. COMPARISON: [facility], CT, PE STUDY (CTA CHEST), 12/05/2017, 19:08. [facility], CR, XR CHEST 1V, 02/08/2018, 6:05. [facility], CR, XR CHEST 1V, 02/09/2018, 9:44. [facility], CR, XR CHEST 1V, 02/09/2018, 16:44. [facility], CR, XR CHEST 1V, 02/10/2018, 7:58. [facility], CR, XR CHEST 1V, 02/10/2018, 13:02. FINDINGS: Surgical changes and devices: Right mastectomy. Interval removal of right central line port. Surgical anchors are noted in the right humeral head. There is a right mastectomy. Lungs and pleura: Lungs are hyperinflated. There is a nodular density in the right lower lung zone which may be the nipple shadow. No pleural effusions or pneumothorax. Lungs are clear. Mediastinum: Mediastinal contours appear normal. Heart size is normal. Bones and chest wall: Subcutaneous gas collections are seen in the right shoulder area. No suspicious bony lesions. Overlying soft tissues appear unremarkable. IMPRESSION: 1. No pneumothorax. There are subcutaneous gas collections in the right shoulder region. 2. Removal of right central line port. 3. Hyperinflation consistent with COPD. 4. A nodular density in the right lower lung zone, most likely the nipple shadow. Nipple markers are suggested on followup chest x-ray. Dictated by: Usha Stafford M.D. on 02/11/2018 at 13:49 Approved by: Usha Stafford M.D. on 02/11/2018 at 13:55
[2018-02-11] MEDS: ALPRAZolam 0.25 MG TABLET PO ×2 (00:04→09:12)
[2018-02-11] MEDS: SODIUM CHLORIDE 0.9% 1,000 ML 100 ML IV (02:34)
[2018-02-11] MEDS: diphenhydrAMINE 50 MG/ML VIAL 25 MG IV (04:53)
[2018-02-11] MEDS: HYDROMORPHONE 0.5 MG INJ IV (05:21)
[2018-02-11 05:24] LABS: Add Manual Diff / Slide Review NO; Basophils Percent Auto 0.5 % (0-2); Hemoglobin 11.8 g/dL (12.0-16.0); Lymphocytes Percent Auto 16.1 % (25-40); Mean Corpuscular HGB Conc 32.9 % (30-36); Mean Corpuscular Hemoglobin 28.8 PG (26-34); Mean Corpuscular Volume 87.7 fL (80-100); Monocytes Percent Auto 7.4 % (3-14); Neutrophils Absolute Auto 11300 /uL (3000-5900); Platelet Count 483 X10^3/uL (150-400); Red Blood Cell Count 4.11 X10^6/uL (4.0-5.2); Red Cell Distribution Width 15.5 % (11.6-14.8); White Blood Cell Count 14.8 X10^3/uL (4.5-11.0)
[2018-02-11 05:29] LABS: Alanine Aminotransferase 55 IU/L (9-52); Albumin 2.9 g/dL (3.5-5.0); Alkaline Phosphatase 57 U/L (38-126); Aspartate Aminotransferase 54 IU/L (14-36); Bilirubin Total 0.3 mg/dL (0.2-1.3); Blood Urea Nitrogen 9 mg/dL (7-17); Calcium 8.3 mg/dL (8.4-10.2); Carbon Dioxide 34 mmol/L (22-32); Chloride 102 mmol/L (98-107); Estimated Glomerular Filt Rate > 60.0 mL/min (>60); Globulin 2.9 g/dL (1.7-4.1); Glucose 94 mg/dL (80-110); HEMOLYSIS < 15 (0-50); Potassium 3.3 mmol/L (3.4-5.1); Sodium 142 mmol/L (137-145); Total Protein 5.8 g/dL (6.3-8.2)
[2018-02-11 05:42] LABS: Troponin I 0.218 ng/mL (0.01-0.034)
[2018-02-11] MEDS: METOPROLOL ER 50 MG TABLET 100 MG PO (08:52)
[2018-02-11] MEDS: ENOXAPARIN 30 MG/0.3 ML SYRINGE SUBCUT (08:52)
[2018-02-11] MEDS: CLOPIDOGREL 75 MG TABLET PO (08:53)
[2018-02-11] MEDS: FUROSEMIDE 20 MG TABLET PO (08:53)
[2018-02-11] MEDS: PHENYTOIN ER 100 MG CAPSULE 200 MG PO (08:53)
[2018-02-11] MEDS: Moxifloxacin 400 MG/250 ML PIGGYBACK 250 MG IV (11:01)
[2018-02-11 12:05] LABS: Add Manual Diff / Slide Review NO; Basophils Percent Auto 0.1 % (0-2); Hematocrit 35.4 % (36-46); Hemoglobin 11.8 g/dL (12.0-16.0); Lymphocytes Percent Auto 13.6 % (25-40); Mean Corpuscular HGB Conc 33.3 % (30-36); Mean Corpuscular Hemoglobin 29.3 PG (26-34); Monocytes Percent Auto 5.5 % (3-14); Neutrophils Absolute Auto 11900 /uL (3000-5900); Neutrophils Percent Auto 80.8 % (50-75); Platelet Count 516 X10^3/uL (150-400); Red Blood Cell Count 4.02 X10^6/uL (4.0-5.2); Red Cell Distribution Width 15.5 % (11.6-14.8); White Blood Cell Count 14.7 X10^3/uL (4.5-11.0)
[2018-02-11] MEDS: ALPRAZolam 0.25 MG TABLET 0.5 MG PO (12:15)
[2018-02-11 12:20] LABS: Alanine Aminotransferase 52 IU/L (9-52); Albumin 2.9 g/dL (3.5-5.0); Alkaline Phosphatase 57 U/L (38-126); Aspartate Aminotransferase 54 IU/L (14-36); Bilirubin Total 0.2 mg/dL (0.2-1.3); Blood Urea Nitrogen 9 mg/dL (7-17); Calcium 7.9 mg/dL (8.4-10.2); Carbon Dioxide 31 mmol/L (22-32); Chloride 102 mmol/L (98-107); Estimated Glomerular Filt Rate > 60.0 mL/min (>60); Globulin 2.8 g/dL (1.7-4.1); Glucose 113 mg/dL (80-110); HEMOLYSIS < 15 (0-50); Potassium 2.9 mmol/L (3.4-5.1); Sodium 143 mmol/L (137-145); Total Protein 5.7 g/dL (6.3-8.2)
--- NOTE | 2018-02-11 12:22 | PM.PN.1 ---
Subjective Date Patient Seen: 02/11/18 Time Patient Seen: 11:30 Interval history: The patient reports to be feeling better, though remains very dyspneic with minimal exertion, is eating poorly, and states she would like her central line out. She is quite clear that she does not wish to be reintubated to have a chest tube replaced if indicated, or any other life prolonging measures. She is seen with her partner fill at bedside, and both are in agreement that she would wish do not resuscitate status and comfort care measures. She furthermore wishes to have hospice consultation, and is agreeable to alf placement to help meet her care needs. Exam Vital Signs (past 8 hours): Vital Signs - 8 hr 02/11/18 05:00 02/11/18 07:43 02/11/18 08:52 Temperature 97.8 F 97.3 F L Pulse Rate 81 58 L 84 Respiratory Rate 24 14 Blood Pressure 146/88 H 110/62 110/62 Pulse Oximetry 94 99 02/11/18 09:56 02/11/18 10:15 02/11/18 12:03 Temperature 97.8 F Pulse Rate 81 81 Respiratory Rate 18 Blood Pressure 100/68 Pulse Oximetry 97 93 Pulse Oximetry 93 Fraction of Inspired Oxygen 25 Oxygen Delivery Method Nasal Cannula Oxygen Flow Rate 2 Narrative Exam Narrative: General: Thin, frail cachectic female, hard of hearing, appears appropriate, answering questions and appears dyspneic with minimal exertion HEENT: Mucous membranes pink and moist Neck: Supple Lungs: Diminished breath sounds throughout, no audible wheezing Cardiac: Regular rate and rhythm Abdomen: Thin, scaphoid, nontender Extremities: Thin, without edema, left lower extremity amputation, right 2nd toe with tenderness erythema and 4 mm superficial ulceration, with 4-5 second capillary refill Dermatologic: Otherwise, no rash or skin lesions Neurologic: Alert, oriented, globally weak though no focal deficits evident Objective Labs Result Diagrams: 02/11/18 11:32 02/11/18 04:49 Labs: Laboratory Results - last 24 hr 02/10/18 02/11/18 02/11/18 14:45 04:49 04:49 WBC 14.8 H RBC 4.11 Hgb 11.8 L Hct 36.0 MCV 87.7 MCH 28.8 MCHC 32.9 RDW 15.5 H Plt Count 483 H Neut % (Auto) 76.0 H Lymph % (Auto) 16.1 L [place] % (Auto) 7.4 Eos % (Auto) 0.0 L Baso % (Auto) 0.5 Neut # (Auto) 24081 H Sodium 142 Potassium 3.3 L Chloride 102 Carbon Dioxide 34 H BUN 9 Creatinine 0.50 L Estimated GFR > 60.0 BUN/Creatinine Ratio 18.0 Glucose 94 Calcium 8.3 L Total Bilirubin 0.3 AST 54 H ALT 55 H Alkaline Phosphatase 57 Troponin I 0.242 H* 0.218 H* Total Protein 5.8 L Albumin 2.9 L Globulin 2.9 Albumin/Globulin Ratio 1.0 02/11/18 11:32 WBC 14.7 H RBC 4.02 Hgb 11.8 L Hct 35.4 L MCV 88.0 MCH 29.3 MCHC 33.3 RDW 15.5 H Plt Count 516 H Neut % (Auto) 80.8 H Lymph % (Auto) 13.6 L [place] % (Auto) 5.5 Eos % (Auto) 0.0 L Baso % (Auto) 0.1 Neut # (Auto) 59452 H Sodium Potassium Chloride Carbon Dioxide BUN Creatinine Estimated GFR BUN/Creatinine Ratio Glucose Calcium Total Bilirubin AST ALT Alkaline Phosphatase Troponin I Total Protein Albumin Globulin Albumin/Globulin Ratio Assessment & Plan Plan: Assessment/Plan Narrative: 1. Acute chronic obstructive pulmonary disease exacerbation with possible pneumonia. Continue moxifloxacin and oral form through 02/15/2018. 2. Acute hypoxic respiratory failure due to 1, resolved, requiring intubation and mechanical ventilation 02/08/2018 through 02/09/2018. 3. Iatrogenic right-sided pneumothorax complicating right internal jugular central venous catheter placement, status post chest tube placement 02/08/2018, removed 02/10/2018. Clinically stable. 4. Acute type 2 myocardial infarction due to demand ischemia. Peak troponin 0.427, trending down words. Clinically asymptomatic. Treat underlying conditions. 5. Chronic nausea, possibly due to mesenteric ischemia. 6. Atherosclerotic peripheral vascular disease. Continue clopidogrel and statin therapy. 7. Anxiety. Continue benzodiazepines for anxiety. 8. Hypertension. Continue Dilantin and furosemide. 9. Hyperlipidemia. Continue atorvastatin. 10. Seizure disorder. Continue Dilantin. 11. Hypokalemia. Replete intravenously. 12. Code status: Do not resuscitate. Advance care planning. Lengthy discussion carried out with the patient and her life partner at bedside. Also reviewed with case management. She and her partner wish do not resuscitate/comfort care measures. POLST form signed enclosed in the chart stating her wish. Anticipate discharge to snf when this can be arranged for ongoing palliative care measures and hospice consultation.
--- NOTE | 2018-02-11 12:33 | CM.DPC ---
DCP/Continued: Reviewed chart. Received verbal referral from RN indicating pt.'s significant other/Nico is at bedside and would like to discuss d/c planning. OCULAR CARE AIDE met with patient and Nico. Patient sitting up in bed with [address]. Patient agreeable to discuss d/c plan. Patient alert during visit and orientation appears to be at baseline per nursing/Nico. Patient reports that she does not want to go home. Patient indicates that she feels like she cannot breathe at home. Patient and Nico reside together in [place] and both actively smoke. Patient reports that she no longer wants to be anywhere near cigarettes. Discussed d/c planning options with patient and Nico. Pt. very adamant that she does not want to be intubated again. POLST form started and MD expected to complete with patient today. Patient adds that she would prefer not to return to the hospital rather be kept comfortable. Nico agrees and reports that they have discussed this over the last 30yrs and are both in agreement to their wishes. Patient agreeable to SNF stay at time of d/c. First choice is [facility]. OCULAR CARE AIDE placed call to [facility] spoke with Rebekah she reports that patient has approximately 55 SNF days left under Medicare benefit. Rebekah goes on to add that patient currently does not have Medicaid? Rebekah reports that [facility] will accept under SNF benefit and if patient does not show any physical improvement may need to consider terminal care/hospice. Patient and Nico aware and agreeable. OCULAR CARE AIDE updated Dr. Maurer on above conversation. Patient expected to be medically cleared for discharge in 48-72hrs. Rebekah at [facility] made aware that patient may d/c from [facility] on SundayFebruary 13 or later. P: [facility] when medically stable. ZAYNAB Parry
--- NOTE | 2018-02-11 12:35 | P.PN_ITS ---
Subjective Date Patient Seen: 02/11/18 Time Patient Seen: 11:30 Interval history: The patient reports to be feeling better, though remains very dyspneic with minimal exertion, is eating poorly, and states she would like her central line out. She is quite clear that she does not wish to be reintubated to have a chest tube replaced if indicated, or any other life prolonging measures. She is seen with her partner fill at bedside, and both are in agreement that she would wish do not resuscitate status and comfort care measures. She furthermore wishes to have hospice consultation, and is agreeable to senior care placement to help meet her care needs. Exam Vital Signs (past 8 hours): Vital Signs - 8 hr 3 02/11/18 05:00 02/11/18 07:43 02/11/18 08:52 Temperature 97.8 F 97.3 F L Pulse Rate 81 58 L 84 Respiratory Rate 24 14 Blood Pressure 146/88 H 110/62 110/62 Pulse Oximetry 94 99 3 02/11/18 09:56 02/11/18 10:15 02/11/18 12:03 Temperature 97.8 F Pulse Rate 81 81 Respiratory Rate 18 Blood Pressure 100/68 Pulse Oximetry 97 93 Pulse Oximetry 93 Fraction of Inspired Oxygen 25 Oxygen Delivery Method Nasal Cannula Oxygen Flow Rate 2 Narrative Exam Narrative: General: Thin, frail cachectic female, hard of hearing, appears appropriate, answering questions and appears dyspneic with minimal exertion HEENT: Mucous membranes pink and moist Neck: Supple Lungs: Diminished breath sounds throughout, no audible wheezing Cardiac: Regular rate and rhythm Abdomen: Thin, scaphoid, nontender Extremities: Thin, without edema, left lower extremity amputation, right 2nd toe with tenderness erythema and 4 mm superficial ulceration, with 4-5 second capillary refill Dermatologic: Otherwise, no rash or skin lesions Neurologic: Alert, oriented, globally weak though no focal deficits evident Objective Labs Result Diagrams: 02/11/18 11:32 02/11/18 04:49 Labs: Laboratory Results - last 24 hr 02/10/18 02/11/18 02/11/18 14:45 04:49 04:49 WBC 14.8 H RBC 4.11 Hgb 11.8 L Hct 36.0 MCV 87.7 MCH 28.8 MCHC 32.9 RDW 15.5 H Plt Count 483 H Neut % (Auto) 76.0 H Lymph % (Auto) 16.[address] [place] % (Auto) 7.4 Eos % (Auto) 0.0 L Baso % (Auto) 0.5 Neut # (Auto) 76001 H Sodium 142 Potassium 3.3 L Chloride 102 Carbon Dioxide 34 H BUN 9 Creatinine 0.50 L Estimated GFR > 60.0 BUN/Creatinine Ratio 18.0 Glucose 94 Calcium 8.3 L Total Bilirubin 0.3 AST 54 H ALT 55 H Alkaline Phosphatase 57 Troponin I 0.242 H* 0.218 H* Total Protein 5.8 L Albumin 2.9 L Globulin 2.9 Albumin/Globulin Ratio 1.0 02/11/18 11:32 WBC 14.7 H RBC 4.02 Hgb 11.8 L Hct 35.4 L MCV 88.0 MCH 29.3 MCHC 33.3 RDW 15.5 H Plt Count 516 H Neut % (Auto) 80.8 H Lymph % (Auto) 13.[address] [place] % (Auto) 5.5 Eos % (Auto) 0.0 L Baso % (Auto) 0.1 Neut # (Auto) 59848 H Sodium Potassium Chloride Carbon Dioxide BUN Creatinine Estimated GFR BUN/Creatinine Ratio Glucose Calcium Total Bilirubin AST ALT Alkaline Phosphatase Troponin I Total Protein Albumin Globulin Albumin/Globulin Ratio Assessment & Plan Plan: Assessment/Plan Narrative: 1. Acute chronic obstructive pulmonary disease exacerbation with possible pneumonia. Continue moxifloxacin and oral form through 02/15/2018. 2. Acute hypoxic respiratory failure due to 1, resolved, requiring intubation and mechanical ventilation 02/08/2018 through 02/09/2018. 3. Iatrogenic right-sided pneumothorax complicating right internal jugular central venous catheter placement, status post chest tube placement 02/08/2018, removed 02/10/2018. Clinically stable. 4. Acute type 2 myocardial infarction due to demand ischemia. Peak troponin 0.427, trending down words. Clinically asymptomatic. Treat underlying conditions. 5. Chronic nausea, possibly due to mesenteric ischemia. 6. Atherosclerotic peripheral vascular disease. Continue clopidogrel and statin therapy. 7. Anxiety. Continue benzodiazepines for anxiety. 8. Hypertension. Continue Dilantin and furosemide. 9. Hyperlipidemia. Continue atorvastatin. 10. Seizure disorder. Continue Dilantin. 11. Hypokalemia. Replete intravenously. 12. Code status: Do not resuscitate. Advance care planning. Lengthy discussion carried out with the patient and her life partner at bedside. Also reviewed with case management. She and her partner wish do not resuscitate/comfort care measures. POLST form signed enclosed in the chart stating her wish. [facility] for ongoing palliative care measures and hospice consultation.
[2018-02-11] MEDS: ALBUTEROL/IPRATROPIUM 3 ML AMPUL INH (12:47)
--- NOTE | 2018-02-11 12:50 | RT ---
Patient continues to refuse treatment. Explained the importance of treatment and patient keeps refusing and stating that it is not helping her breath.
[2018-02-11] MEDS: POTASSIUM CHLORIDE 20 MEQ TAB 40 MEQ PO (14:23)
--- NOTE | 2018-02-11 14:49 | PC.NURSE ---
pt refusing most any care offered by staff this shift- she is wearing 02 @ 2l nc with o2 sats between 88-96%, post out, as is iv line, she is a dnr/dni pt with current polst on chart- plan is to transfer to [facility] on sunday
--- NOTE | 2018-02-11 20:41 | PC.NURSE ---
Addendum entered by Katelynn Smith R.N. 02/11/18 22:56: pt transferred to room 204 in bed with O2 at 2 L/min. Pt alert and oriented. Called Nico, significant other, and left message about pt's new room number. Original Note: kayleen note pt initally restless, saying I want to go to bed. Pt wants to be in her own bed and says she doesn't understand why she can't be in it. Explained multiple times that pt in hospital, that we cannot drive her home and leave her there with no one to care for her, and that we cannot bring her bed to hospital. Pt finally relaxed after being told that her Significant Other, Nico, could not be her caregiver, that she had to stay here tonight. Pt then mostly napping. Pt oriented. Uses call light to call when incontinent of urine. Unable to obtain O2 sats due to cool extremities and pt picking at pulse oximeter.
[2018-02-12] VITALS (7 sets, daily range): BP systolic 115–135; BP diastolic 78–90; PULSE 72–104; RESP 18–32; TEMP 36.1–36.7; O2SAT 1–100
[2018-02-12] MEDS: ALPRAZolam 0.25 MG TABLET 0.5 MG PO ×3 (00:46→11:12)
--- NOTE | 2018-02-12 06:00 | PC.NURSE ---
Addendum entered by Yamileth Ozuna R.N. 02/12/18 06:23: Pt became anxious again at 0615 requesting PRN Xanax. Pt yelling out air! and stated I'm not getting any air. Leaning forward in bed,mouth breathing and reminded to breath in through her nose, pursed lip breathing encouraged. Offered Neb tx and pt declined. Original Note: NOC Note: Pt requested PRN Xanax for anxiety early in shift with good results. Pt has been incontinent of both bowel and bladder this shift. O2 on at 2L, NC, pt sating in the mid to upper 90's, Pursed lipped breathing with anxiety. LS are coarse with occ wheezes noted. Pt shifting position in bed independently. No nausea and denies pain.
[2018-02-12] MEDS: ALBUTEROL/IPRATROPIUM 3 ML AMPUL INH ×3 (07:48→20:21)
[2018-02-12] MEDS: ENOXAPARIN 30 MG/0.3 ML SYRINGE SUBCUT (09:12)
[2018-02-12] MEDS: METOPROLOL ER 50 MG TABLET 100 MG PO (09:13)
[2018-02-12] MEDS: MOXIFLOXACIN HCL 400 MG TABLET PO (09:13)
[2018-02-12] MEDS: FUROSEMIDE 20 MG TABLET PO (09:13)
[2018-02-12] MEDS: predniSONE 20 MG TABLET 40 MG PO (09:13)
[2018-02-12] MEDS: PHENYTOIN ER 100 MG CAPSULE 200 MG PO (09:13)
[2018-02-12] MEDS: CLOPIDOGREL 75 MG TABLET PO (09:13)
--- NOTE | 2018-02-12 09:43 | PC.NURSE ---
Day shift: A&ox3. Pt sleeping on and off. Did not eat breakfast. Reports no nausea but does state too much work and hard to breath when I eat. AM meds were crushed and applesauce carrier used. Pt did well taking. VS ok. NC 2L w/ SpO2 97% at rest. Reports fantom pain left leg. Bruises present all extremities. Refused SCD's. Chest tube entry site dressing is CDI. Maybe home tomorrow w/ hospice. HAs been incontinent. Call light in reach and uses it proper. High fall risk. Not impulsive.
--- NOTE | 2018-02-12 10:26 | PC.NURSE ---
Day shift: Dr Murray called and made aware of Pt's anxiety issues from last night at this time.
[2018-02-12] MEDS: ALBUTEROL INH (11:05)
--- NOTE | 2018-02-12 12:44 | PM.PN.1 ---
Subjective Date Patient Seen: 02/12/18 Interval history: Pt reports ongoing difficulty breathing with anxiety. Exam Vital Signs (past 8 hours): Vital Signs - 8 hr 02/12/18 07:59 02/12/18 08:23 02/12/18 11:05 Temperature 96.9 F L Pulse Rate 72 86 96 H Respiratory Rate 24 20 28 H Blood Pressure 135/90 H Pulse Oximetry 100 100 96 Pulse Oximetry 96 Fraction of Inspired Oxygen 25 Oxygen Delivery Method Nasal Cannula Oxygen Flow Rate 2 Narrative Exam Narrative: General: Thin, frail cachectic female, hard of hearing, appears appropriate, answering questions and appears dyspneic with minimal exertion Objective Labs Result Diagrams: 02/11/18 11:32 02/11/18 11:32 Assessment & Plan Plan: Assessment/Plan Narrative: 1. Acute chronic obstructive pulmonary disease exacerbation with possible pneumonia. Continue moxifloxacin orally through 02/15/2018. 2. Acute hypoxic respiratory failure due to 1, resolved, requiring intubation and mechanical ventilation 02/08/2018 through 02/09/2018. 3. Iatrogenic right-sided pneumothorax complicating right internal jugular central venous catheter placement, status post chest tube placement 02/08/2018, removed 02/10/2018. Clinically stable. 4. Acute type 2 myocardial infarction due to demand ischemia. Peak troponin 0.427, trending down words. Clinically asymptomatic. Treat underlying conditions. 5. End-stage chronic obstructive pulmonary disease. Ongoing significant air hunger. Continue prednisone and frequently administer bronchodilators. Add liquid morphine and lorazepam for palliation. 6. Chronic nausea, possibly due to mesenteric ischemia. 7. Atherosclerotic peripheral vascular disease. Continue clopidogrel and statin therapy. 8. Anxiety. Continue benzodiazepines for anxiety. 9. Hypertension. Continue Dilantin and furosemide. 10. Hyperlipidemia. Continue atorvastatin. 11. Seizure disorder. Continue Dilantin. 12. Hypokalemia. Repleted. 13. Code status: Do not resuscitate. 14. Disposition: Anticipate discharge to [facility] tomorrow for ongoing treatment of conditions as detailed above extending into palliative care needs with hospice consultation.
[2018-02-12] MEDS: MORPHINE 10 MG/0.5 ML ORAL SYRINGE PO ×2 (12:46→16:52)
--- NOTE | 2018-02-12 12:51 | P.PN_ITS ---
Subjective Date Patient Seen: 02/12/18 Interval history: Pt reports ongoing difficulty breathing with anxiety. Exam Vital Signs (past 8 hours): Vital Signs - 8 hr 3 02/12/18 07:59 02/12/18 08:23 02/12/18 11:05 Temperature 96.9 F L Pulse Rate 72 86 96 H Respiratory Rate 24 20 28 H Blood Pressure 135/90 H Pulse Oximetry 100 100 96 Pulse Oximetry 96 Fraction of Inspired Oxygen 25 Oxygen Delivery Method Nasal Cannula Oxygen Flow Rate 2 Narrative Exam Narrative: General: Thin, frail cachectic female, hard of hearing, appears appropriate, answering questions and appears dyspneic with minimal exertion Objective Labs Result Diagrams: 02/11/18 11:32 02/11/18 11:32 Assessment & Plan Plan: Assessment/Plan Narrative: 1. Acute chronic obstructive pulmonary disease exacerbation with possible pneumonia. Continue moxifloxacin orally through 02/15/2018. 2. Acute hypoxic respiratory failure due to 1, resolved, requiring intubation and mechanical ventilation 02/08/2018 through 02/09/2018. 3. Iatrogenic right-sided pneumothorax complicating right internal jugular central venous catheter placement, status post chest tube placement 02/08/2018, removed 02/10/2018. Clinically stable. 4. Acute type 2 myocardial infarction due to demand ischemia. Peak troponin 0.427, trending down words. Clinically asymptomatic. Treat underlying conditions. 5. End-stage chronic obstructive pulmonary disease. Ongoing significant air hunger. Continue prednisone and frequently administer bronchodilators. Add liquid morphine and lorazepam for palliation. 6. Chronic nausea, possibly due to mesenteric ischemia. 7. Atherosclerotic peripheral vascular disease. Continue clopidogrel and statin therapy. 8. Anxiety. Continue benzodiazepines for anxiety. 9. Hypertension. Continue Dilantin and furosemide. 10. Hyperlipidemia. Continue atorvastatin. 11. Seizure disorder. Continue Dilantin. 12. Hypokalemia. Repleted. 13. Code status: Do not resuscitate. 14. Disposition: Anticipate discharge to [facility] tomorrow for ongoing treatment of conditions as detailed above extending into palliative care needs with hospice consultation.
--- NOTE | 2018-02-12 14:19 | PC.NURSE ---
pt complained of not feeling like she was getting air. on continuous pulse ox, sats 97-98%on 2L O2. provided pt with PRN xanax with little relief of anxiety . Notified MD and order for SL morphine. Pt sleeping after admin and appears more comfortable.
[2018-02-12] MEDS: LORazepam 2 MG/ML ORAL SOL 0.5 MG PO ×2 (16:52→23:52)
--- NOTE | 2018-02-12 19:12 | PC.NURSE ---
At 1645 found patient yelling out air, several times, tachypneic, resps shallow at 32/minute. Sitting at 100 degrees, rocking back and forth, can only say one word air. Continuous pulse ox at 94%, 2L O2 NC in nares. HR 118. I told her that I could give her Morphine and Ativan and she said yes very quickly. Flacc scale 8. Morphine & Ativan administered, it took about 20 minutes for her to finally relax and then began said can you get me something to drink? Refused meal tray, saying how can I eat when I can't breathe? Cold ensure provided, she immediately drank some and said thank you. Spouse at bedside, who said well if you are not going to eat I am leaving. Spouse left shortly afterwards. She has since been observed sleeping on her left side, respirations 20/minute, more relaxed than earlier assessment. Will allow rest period at this time.
[2018-02-12] MEDS: ATORVASTATIN 20 MG TABLET PO (21:26)
[2018-02-13] VITALS (8 sets, daily range): BP systolic 83–133; BP diastolic 53–84; PULSE 91–114; RESP 15–26; TEMP 36.4–36.7; O2SAT 94–98
[2018-02-13] MEDS: MORPHINE 10 MG/0.5 ML ORAL SYRINGE PO (00:01)
[2018-02-13] MEDS: ALBUTEROL/IPRATROPIUM 3 ML AMPUL INH ×4 (00:05→15:09)
[2018-02-13] MEDS: LORazepam 2 MG/ML ORAL SOL 0.5 MG PO ×4 (06:50→16:09)
[2018-02-13] MEDS: predniSONE 20 MG TABLET 40 MG PO (08:39)
[2018-02-13] MEDS: PHENYTOIN ER 100 MG CAPSULE 200 MG PO (08:40)
[2018-02-13] MEDS: FUROSEMIDE 20 MG TABLET PO (08:40)
[2018-02-13] MEDS: MOXIFLOXACIN HCL 400 MG TABLET PO (08:41)
[2018-02-13] MEDS: CLOPIDOGREL 75 MG TABLET PO (08:41)
[2018-02-13] MEDS: METOPROLOL ER 50 MG TABLET 100 MG PO (08:43)
[2018-02-13] MEDS: ENOXAPARIN 40 MG/0.4 ML SYRINGE SUBCUT (11:06)
[2018-02-13] MEDS: POTASSIUM CHLORIDE 20 MEQ/15 ML UDC 40 MEQ PO (11:07)
--- NOTE | 2018-02-13 11:33 | P.DS_ITS ---
History of Present Illness Date Patient Seen: 02/13/18 Time Patient Seen: 11:19 Chief complaint: SOB Narrative: Evie Malone is a 62 year old female presents with respiratory failure. She has been seen in the ER a few times in the past several weeks she was discharged earlier in the month from the hospital for a cellulitis was seen twice in the ER for nausea and then was seen yesterday for shortness of breath treated for a COPD exacerbation and discharged from the ER then presented again this morning early with worsening shortness of breath dyspnea unresponsive to treatment in the ER and required intubation also is IJ central line was placed she was noted to have a pneumothorax after that procedure and underwent a chest tube insertion there in the ER also. Patient unable at this time to give much of a history due to the intubation and sedation. She was recently on Levaquin for the cellulitis and then on doxycycline but has been off antibiotics for maybe a few days to a week. She had a CT scan of her abdomen done a couple weeks ago while working up the nausea. That showed atherosclerotic mural plaquing and stenosis at the origin of each renal artery and the celiac axis and superior mesenteric artery. Discharge Providers Date of admission: 02/08/18 07:41 Primary care physician: Rhonda Iverson MD Consults: 02/08/18 09:18 Consult to General Surgery Routine Comment: Consulting Provider: Papi Salazar Reason for consultation: chest tube management Has provider been notified: Yes 02/08/18 09:45 Consult to Dietitian, Adult Routine Comment: Reason For Exam: Patient on Ventilator and NPO 02/09/18 16:46 Consult to Dietitian, Adult Routine Comment: Reason For Exam: assessed at high risk 02/12/18 15:38 Consult to Physical Therapy Evaluate & Treat Comment: weakness Physician Instructions: Evaluate and Treat Discharge provider: RODRÍGUEZ Brennan Summary Discharge Diagnosis: 1. Acute on chronic obstructive pulmonary disease. 2. Acute hypoxic respiratory failure due to 1. 3. Iatrogenic right-sided pneumothorax 4. Acute type 2 myocardial infarction due to demand ischemia 5. Cellulitis and abscess of right foot (resolved) 6. Hypertension 7. Atherosclerotic peripheral vascular disease 8. Tobacco dependence 9. Stroke (chronic) 10. Seizures due to number 9. Hospital Course: This is a summary of a 5 day hospitalization for this 62-year- old female who presented to the emergency department with acute respiratory failure. She was sedated, intubated, placed on mechanical ventilation, and right IJ inserted. Patient was noted to have a right pneumothorax after the procedure and underwent chest tube insertion. Patient was then placed on ventilation sedation, antibiotics, bronchodilators, and IV steroids. She was extubated on hospital day 3, but continued to have complaints of shortness of breath and chest pain. She developed an acute non ST elevation myocardial infarction. She had mildly elevated troponin and has EKG changes. Q-waves in inferior leads appear to be new. She also developed deep in T-wave inversions in anterolateral leads. She was continued on her beta blockers and started on Plavix. Vital signs remained stable during hospitalization. She was afebrile throughout her entire stay. Her right-sided chest tube for the pneumothorax was removed on day 3 of hospitalization. Chest x-ray after removal of the tube showed no appreciable pneumothorax. There are no pleural effusions. She has end-stage chronic obstructive pulmonary disease resulting in air hunger. She was continued on her prednisone and frequently administered bronchodilators. She was continued on benzodiazepines for anxiety, and given oral morphine for comfort. She was also hypokalemic during the hospitalization. She was supplemented with oral replacement. There is no seizure activity noted during this hospitalization. Cellulitis of her right foot appears to be resolved. Her code status after being discussed with her and her significant other was to be do not resuscitate. She is being transferred [facility] for continued physical therapy if desired and comfort measures. Status at Discharge Functional status at discharge: bed bound Overall status at discharge: patient is not back to baseline Time Spent with Patient Greater than 30 minutes Exam Vital Signs (past 8 hours): Vital Signs - 8 hr 3 02/13/18 05:25 02/13/18 07:17 02/13/18 08:24 Temperature 98.0 F 97.5 F L Pulse Rate 100 H 97 H 106 H Respiratory Rate 15 20 20 Blood Pressure 83/53 L 133/84 H Pulse Oximetry 98 96 96 Pulse Oximetry 96 Fraction of Inspired Oxygen 28 Oxygen Delivery Method Nasal Cannula Oxygen Flow Rate 2 Narrative Exam Narrative: General: Thin, frail cachectic female, hard of hearing, appears appropriate, answering questions and appears mildly dyspneic with minimal exertion HEENT: Mucous membranes pink and moist Neck: Supple Lungs: Diminished breath sounds throughout, no audible wheezing or rales Cardiac: Regular rate and rhythm Abdomen: Thin, scaphoid, nontender, soft, active bowel sounds Extremities: Thin, without edema, left lower extremity amputation, right 2nd toe with tenderness erythema and 4 mm superficial ulceration, with 4-5 second capillary refill Dermatologic: Otherwise, no rash or skin lesions Neurologic: Alert, oriented, globally weak though no focal deficits evident Objective Labs Result Diagrams: 02/11/18 11:32 02/11/18 11:32 Discharge Plan Discharge Plan Patient Disposition: SNF Transfer to: [facility] Transportation: Ambulance I certify the [facility] care is medically necessary on a continuing basis for any conditions for which he/ she received care during this hospitalization.: Yes The receiving facility has agreed to accept transfer and provide medical treatment.: Yes Discharge Health Status Precautions: [place] Provider Discharge Instructions Diet: Diet as Tolerated Food texture: Soft Diet comment: Patient has poor dentition. Activity: Out of bed as tolerated with assistance. Oxygen: 02 at 2 L per nasal prongs Wound Care Report to your healthcare provider any signs of infection, such as:: chills, fever, night sweats and increased pain Special Rehabilitation Services Reason for rehabilitation: Recovery r/t decondition Rehab type: Physical therapy Restrictions to mobility: Patient has left leg extremity amputation. Discharge Data Primary Care Provider: Rhonda Iverson Attending Provider: Wagner Butler Admit Date/Time: 02/08/18 07:41 Quality VTE Deep Vein Thrombosis/Pulmonary Embolism Present on Admission: No
--- NOTE | 2018-02-13 12:10 | PT.IPTN ---
Current Diagnoses Acute respiratory failure, unspecified whether with hypoxia or hypercapnia (02/08/18) Physical Therapy Treatment Note M3 PT-IP Subjective Start: 02/13/18 12:04 Freq: NEEDED Status: Active Protocol: Document 02/13/18 12:05 AB (Rec: 02/13/18 12:10 AB [id number]) Subjective Physical Therapy Visit Type Type Patient Refusal Notes pt in bed and asleep. gently woke pt up and pt refused therapy and refused to get out of bed. stated that she just wants to sleep and why does she has to get up. educated pt regarding importance of therapy but pt stated that she has a lot of anxiety and just wants to rest.
[2018-02-13] MEDS: POTASSIUM CHLORIDE 20 MEQ TAB 40 MEQ PO (12:21)
--- NOTE | 2018-02-13 15:32 | PC.NURSE ---
1500 Pt to transfer to [facility], called report to Rebekah at the facility.
--- NOTE | 2018-02-13 15:42 | CM.DPNOTE ---
DC Note: Reviewed chart. DC order in place by RODRÍGUEZ Ordaz today to [facility]. According to conversation w/Ace; Dr Maurer spoke w/pt and KARL Walsh this morning and pt is now comfort management. POLST updated to include DNR and comfort measures only. RN confirms today that pt has refused PT and tells RN she would like to be left alone. Pt sleeping for most of the day. TC to KARL Walsh, he remains agreeable to [facility] today. Updated Rebekah at [facility]; faxed signed PASSR, signed med list and other DC ppk. Discussed comfort management; Rebekah then placed call to KARL Walsh to discuss Medicare's limited coverage for end of life care at SNF and a few options moving forward (likely Medicaid coverage if it's active). Non emergent BLS arranged through [facility] for p/u at 1630, per Rebekah's request. Updated Satnam re time. P: DC to [facility] today via BLS for end of life/comfort management. ZAYNAB Mackenzie
--- NOTE | 2018-02-13 15:44 | PC.NURSE ---
patient is resting peacfully in bed at this time. patient is easily abusable. Patient is very short w/ staff and demanding w/ needs but is able to make needs known to staff when nec. Patient is awaiting D/C to [facility] at this time. Denies pain but does state she is uncomfortable feeling. Patient is SOB at rest, on 2L NC and 95%.
--- NOTE | 2018-02-13 17:02 | PT.IPTN ---
Current Diagnoses Acute respiratory failure, unspecified whether with hypoxia or hypercapnia (02/08/18) Physical Therapy Treatment Note M3 PT-IP Subjective Start: 02/13/18 12:04 Freq: NEEDED Status: Active Protocol: Document 02/13/18 16:58 AB (Rec: 02/13/18 17:01 AB [id number]) Subjective Physical Therapy Visit Type Notes checked on pt again and pt is asleep. attempted to wake pt up and was not successful.
== END 2018-02-13 16:25 | DRG 208 ==
LOC: ED 07:28 → ICU 07:42 → AC 02-11 22:55
PROVIDERS: Admitting Provider Internal Medicine; Emergency Provider Emergency Medicine; Family Provider Internal Medicine; PCP Internal Medicine; Visit Provider Internal Medicine
DX: J96.01 Acute respiratory failure with hypoxia (principal); I21.A1 Myocardial infarction type 2; J18.9 Pneumonia, unspecified organism; J95.811 Postprocedural pneumothorax; J44.1 Chronic obstructive pulmonary disease with (acute) exacerbation; I69.398 Other sequelae of cerebral infarction; G40.909 Epilepsy, unspecified, not intractable, without status epilepticus; I10 Essential (primary) hypertension; I73.9 Peripheral vascular disease, unspecified; F17.210 Nicotine dependence, cigarettes, uncomplicated; R11.0 Nausea; Z89.612 Acquired absence of left leg above knee; E87.6 Hypokalemia; Z66 Do not resuscitate
CPT/HCPCS: 31500; 36415; 36591; 36592; 36600; 51701; 71045; 80048; 80053; 81001; 82550; 82553; 82805; 83605; 83735; 83880; 84145; 84484; 85025; 85610; 87797; 93005; 93041; 94002; 94003; 94010; 94150; 94640; 94760; 94762; 94770; 94799; 96374; 99152; 99283; 99285; 99291; 99292; J1170; J1200; J1650; J2280; J2704; J2920; J2930; J7611; J7613

== ENCOUNTER → 2018-05-25 08:23 | Outpatient (CLI) | payer MEDICARE, SELFPAY ==
[2018-02-08 08:32] VITALS: BMI 12.4
[2018-02-09 09:02] VITALS: PULSE 60; RESP 19; O2SAT 98
[2018-05-25 10:25] LABS: Alanine Aminotransferase 26 IU/L (9-52); Aspartate Aminotransferase 34 IU/L (14-36); BUN Creatinine Ratio 18.3 (6-22); Blood Urea Nitrogen 11 mg/dL (7-17); Calcium 9.5 mg/dL (8.4-10.2); Carbon Dioxide 30 mmol/L (22-32); Chloride 103 mmol/L (98-107); Cholesterol 149 mg/dL (140-199); Estimated Glomerular Filt Rate > 60.0 mL/min (>60); Glucose 78 mg/dL (80-110); HDL Cholesterol 63 mg/dL (40-60); HEMOLYSIS 41 (0-50); LDL Cholesterol Calculated 62 mg/dL (<100); Sodium 144 mmol/L (137-145); Triglycerides 118 mg/dL (35-150)
== END ==
PROVIDERS: Family Provider Internal Medicine; PCP Internal Medicine; Visit Provider Internal Medicine
DX: I10 Essential (primary) hypertension (principal); E78.5 Hyperlipidemia, unspecified
CPT/HCPCS: 36415; 80048; 80061; 84450; 84460

== ENCOUNTER 2018-06-02 05:30 | Emergency (ER) | payer MEDICARE, SELFPAY ==
[2018-02-08 08:32] VITALS: BMI 12.4
[2018-02-09 09:02] VITALS: PULSE 60; RESP 19; O2SAT 98
[2018-06-02 05:30] VITALS: BP 191/119; PULSE 103; RESP 20; TEMP 37.2; O2SAT 94
--- NOTE | 2018-06-02 05:36 | ED.SEIZURE ---
HPI - Seizure General Chief Complaint: Seizure Stated Complaint: Seizure Time Seen by Provider: 06/02/18 05:36 Source: EMS Mode of arrival: EMS Limitations: no limitations History of Present Illness HPI Narrative: Patient is a 62-year-old female who presents after likely seizure. She does have a history of CVA as in 2002 and started having seizures after that. She does take Dilantin for them. got up to go the restroom when he heard and felt that she was foaming at the mouth. No urinary incontinence. She has been treated for cellulitis and is currently still taking antibiotics. She has cellulitis of her right foot which seems to be much better. She has been sleeping she was feeling well dear no fevers. She is becoming more awake and alert Initially was quite concerned as he received instructions from dispatch and she did have a few CPR compressions. She is not complaining of any chest pain or shortness of breath. MD complaint: seizure Related Data Home Medications Medication Instructions Recorded Confirmed phenytoin sodium extended 200 mg PO QDAY #0 05/30/17 02/08/18 [Dilantin Extended] diphenhydramine-acetaminophen 1 tab PO BEDTIME PRN 02/07/18 02/08/18 [Acetaminophen PM] metoprolol succinate 100 mg PO DAILY 02/07/18 02/08/18 ondansetron [Zofran ODT] 4 mg PO Q4H PRN 02/07/18 02/08/18 Previous Rx's Medication Instructions Recorded atorvastatin [Lipitor] 20 mg PO HS #30 tab 12/08/17 furosemide [Lasix] 20 mg PO QDAY #30 tab 12/08/17 tiotropium bromide [Spiriva with 18 mcg INH QDAY #30 carolynn 12/08/17 HandiHaler] clopidogrel [Plavix] 75 mg PO DAILY #30 tab 01/25/18 lorazepam [Lorazepam Intensol] 0.5 mg PO Q2HR PRN #10 ml 02/13/18 morphine concentrate 10 mg PO Q4HR PRN #10 ml 02/13/18 moxifloxacin 400 mg PO DAILY #30 tab 02/13/18 potassium chloride 40 meq PO DAILY #473 ml 02/13/18 prednisone 40 mg PO DAILY #30 tab 02/13/18 Allergies Allergy/AdvReac Type Severity Reaction Status Date / Time Sulfa (Sulfonamide Allergy Intermediate PRICKLY Verified 01/30/18 08:41 Antibiotics) FEELING ON [SULFA (SULFONAMIDE HER HEAD ANTIBIOTICS)] Penicillins [PENICILLINS] Allergy Unknown RASH Verified 01/30/18 08:41 ANTIBIOTICS Allergy Mild PRICKLY Uncoded 01/30/18 08:41 FEELING ON HER HEAD Review of Systems Review of Systems All systems reviewed & are unremarkable except as noted in HPI and below Constitutional Denies chills, Denies fever(s), Denies lethargy and Denies weakness Cardiovascular Denies chest pain, Denies irregular heart rhythm, Denies lightheadedness, Denies palpitations and Denies orthopnea Comments: Neurologic Denies weakness Endocrine Denies palpitations [facility] Social History household members: significant other lives independently: Yes caregiver/support person: Yes other: She says she quit smoking today Smoking Status: Current every day smoker Exam Initial Vital Signs Initial Vital Signs: Vital Signs Temperature 98.9 F 06/02/18 05:30 Pulse Rate 103 H 06/02/18 05:30 Respiratory Rate 20 06/02/18 05:30 Blood Pressure 191/119 H 06/02/18 05:30 Pulse Oximetry 94 06/02/18 05:30 GENERAL: Cachectic thin female HEENT: Head atraumatic,EOMI, pupils reactive, face symmetric, dry mucous membranes CARDIOVASCULAR: Regular rate and rhythm without murmurs, rubs or gallops. RESPIRATORY: Breath sounds equal bilaterally, no wheezes rales or rhonchi. ABDOMEN: Soft, nontender. Normoactive bowel sounds all 4 quadrants. No guarding or rebound. EXTREMITIES: Peripheral pulses intact decreased in right foot but foot is warm. Left AKA no cellulitis NEUROLOGICAL: Alert and oriented.Normal gait and speech. Cranial nerves II through XII grossly intact. SKIN: Warm, dry, no laceration, no petechiae, no rashes or lesions. Course Orders Ordered: Discontinued Medications Hydromorphone HCl (Dilaudid) 1 mg IV NOW ONE Stop: 06/02/18 06:03 Last Admin: 06/02/18 06:08 Dose: 1 mg Sodium Chloride (Normal Saline 0.9%) 1,000 mls @ 1,000 mls/hr IV BOLUS PRN PRN Reason: Fluid replacement Vital Signs - 8 hr 06/02/18 05:30 Temperature 98.9 F Pulse Rate 103 H Respiratory Rate 20 Blood Pressure 191/119 H Pulse Oximetry 94 MDM - Seizure Lab Data Attestation: I reviewed the patient's lab results. Result diagrams: 06/02/18 05:45 06/02/18 05:45 Lab Results 06/02/18 06/02/18 Range/Units 05:45 05:45 WBC 16.4 H (4.5-11.0) X10^3/uL RBC 5.52 H (4.0-5.2) X10^6/uL Hgb 16.0 (12.0-16.0) g/dL Hct 48.6 H (36-46) % MCV 88.0 (80-100) fL MCH 29.0 (26-34) PG MCHC 32.9 (30-36) % RDW 15.9 H (11.6-14.8) % Plt Count 477 H (150-400) X10^3/uL Neut % (Auto) 72.7 (50-75) % Lymph % (Auto) 21.3 L (25-40) % [place] % (Auto) 4.9 (3-14) % Eos % (Auto) 0.4 L (2-4) % Baso % (Auto) 0.7 (0-2) % Neut # (Auto) 09251 H (8579-4298) /uL Sodium 144 (137-145) mmol/L Potassium 4.4 (3.4-5.1) mmol/L Chloride 104 (98-107) mmol/L Carbon Dioxide 27 (22-32) mmol/L BUN 21 H (7-17) mg/dL Creatinine 0.60 (0.52-1.04) mg/dL Estimated GFR > 60.0 (>60) mL/min BUN/Creatinine Ratio 35.0 H (6-22) Glucose 124 H (80-110) mg/dL Calcium 9.6 (8.4-10.2) mg/dL Magnesium 2.2 (1.6-2.3) mg/dL Total Creatine Kinase < 20 L (30-135) U/L Troponin I < 0.012 (0.01-0.034) ng/mL Prolactin 118.3 H (3.0-18.6) ng/mL Phenytoin 7.4 L (10-20) ug/mL Ethyl Alcohol < 10 mg/dL ECG Data Attestation: I personally reviewed and interpreted this ECG as follows: Interpretation: Sinus tachycardia rate [address] changes similar to previous EKG actually much improved from previous EKG MDM Narrative Medical decision making narrative: Patient is feeling better pain is better controlled. Dilantin level is therapeutic. Recommended following up with neurologist Discharge Plan Departure Patient Disposition: Home Clinical Impression: Seizure Discharge Date/Time: 06/02/18 07:32 Interventions: ED Discharge Assessment Last Done: 06/02/18 07:50 Instructions: Seizure Disorder -- Adult Activity Restrictions/Additional Instructions: *You have been diagnosed with seizure *What to do: May require medication adjustment please see and talk to her neurologist about *Continue to take medications as directed *Follow up with your primary care provider in 2-3 days *Return to ER if you should have repeat seizure, change in mental status chest pain heart palpitations shortness of breath or any new, worsening or concerning symptoms Prescriptions: No Action phenytoin sodium extended [Dilantin Extended] 100 MG capsule 200 mg PO QDAY Qty: 0 RF: 0 atorvastatin [Lipitor] 20 MG tablet 20 mg PO HS Qty: 30 RF: 0 furosemide [Lasix] 20 MG tablet 20 mg PO QDAY Qty: 30 RF: 0 tiotropium bromide [Spiriva with HandiHaler] 18 MCG capsule, w/inhalation device 18 mcg INH QDAY Qty: 30 RF: 0 clopidogrel [Plavix] 75 mg Tablet 75 mg PO DAILY Qty: 30 RF: 0 metoprolol succinate 100 mg Tablet Extended Release 24 Hr 100 mg PO DAILY RF: 0 ondansetron [Zofran ODT] 4 mg tablet,disintegrating 4 mg PO Q4H PRN (Reason: nausea and vomiting) RF: 0 diphenhydramine-acetaminophen [Acetaminophen PM] 25-500 mg Tablet 1 tab PO BEDTIME PRN (Reason: SLEEP/PAIN) RF: 0 lorazepam [Lorazepam Intensol] 2 mg/mL Concentrate 0.5 mg PO Q2HR PRN (Reason: Anxiety) Qty: 10 RF: 0 morphine concentrate 20 mg/mL Syringe 10 mg PO Q4HR PRN (Reason: Pain, Severe) Qty: 10 RF: 0 moxifloxacin 400 mg Tablet 400 mg PO DAILY Qty: 30 RF: 0 prednisone 20 mg Tablet 40 mg PO DAILY Qty: 30 RF: 0 potassium chloride 40 mEq/15 mL liquid 40 meq PO DAILY Qty: 473 RF: 0
[2018-06-02 06:05] LABS: Add Manual Diff / Slide Review NO; Basophils Percent Auto 0.7 % (0-2); Eosinophils Percent Auto 0.4 % (2-4); Hematocrit 48.6 % (36-46); Lymphocytes Percent Auto 21.3 % (25-40); Mean Corpuscular HGB Conc 32.9 % (30-36); Monocytes Percent Auto 4.9 % (3-14); Neutrophils Absolute Auto 11900 /uL (3000-5900); Neutrophils Percent Auto 72.7 % (50-75); Platelet Count 477 X10^3/uL (150-400); Red Blood Cell Count 5.52 X10^6/uL (4.0-5.2); Red Cell Distribution Width 15.9 % (11.6-14.8); White Blood Cell Count 16.4 X10^3/uL (4.5-11.0)
[2018-06-02] MEDS: HYDROMORPHONE 2 MG INJ 1 MG IV (06:08)
[2018-06-02 06:15] VITALS: BP 148/77; PULSE 77; RESP 18
[2018-06-02 06:16] LABS: Blood Urea Nitrogen 21 mg/dL (7-17); Calcium 9.6 mg/dL (8.4-10.2); Carbon Dioxide 27 mmol/L (22-32); Chloride 104 mmol/L (98-107); Creatine Kinase < 20 U/L (30-135); Estimated Glomerular Filt Rate > 60.0 mL/min (>60); Ethanol (ETOH) < 10 mg/dL; Glucose 124 mg/dL (80-110); HEMOLYSIS < 15 (0-50); Magnesium 2.2 mg/dL (1.6-2.3); Phenytoin / Dilantin 7.4 ug/mL (10-20); Potassium 4.4 mmol/L (3.4-5.1); Sodium 144 mmol/L (137-145)
[2018-06-02 06:26] LABS: Troponin I < 0.012 ng/mL (0.01-0.034)
[2018-06-02 06:30] LABS: Prolactin 118.3 ng/mL (3.0-18.6)
[2018-06-02 06:45] VITALS: BP 145/78; PULSE 67; RESP 16
[2018-06-02 07:15] VITALS: BP 114/72; PULSE 66; RESP 18; O2SAT 96
--- NOTE | 2018-07-08 10:40 | PC.NURSE ---
06/02/18 Late Entry at 0700, Completed NS infusion 1000 ml prior dc to home.
== END 2018-06-02 07:32 | disposition home or self-care (01) ==
PROVIDERS: Emergency Provider Emergency Medicine; Family Provider Internal Medicine; PCP Internal Medicine
DX: R56.9 Unspecified convulsions (principal)
CPT/HCPCS: 36415; 80048; 80185; 80320; 82550; 82553; 83735; 84146; 84484; 85025; 93005; 96374; 99283; 99284; J1170

== ENCOUNTER → 2018-09-26 16:50 | Outpatient (CLI) | payer MEDICARE, SELFPAY ==
[2018-02-08 08:32] VITALS: BMI 12.4
[2018-02-09 09:02] VITALS: PULSE 60; RESP 19; O2SAT 98
== END ==
PROVIDERS: Family Provider Internal Medicine; PCP Internal Medicine; Visit Provider Family Medicine
DX: T87.44 Infection of amputation stump, left lower extremity (principal); S71.102A Unspecified open wound, left thigh, initial encounter; T87.89 Other complications of amputation stump
CPT/HCPCS: 11044; 87070; 87075; 87205; 99213

== ENCOUNTER → 2018-09-27 09:17 | Outpatient (CLI) | payer MEDICARE, SELFPAY ==
[2018-02-08 08:32] VITALS: BMI 12.4
[2018-02-09 09:02] VITALS: PULSE 60; RESP 19; O2SAT 98
--- NOTE | 2018-09-27 | DI.RAD.S_ITS ---
PROCEDURE: XR FEMUR LT MIN 2V INDICATIONS: INFECTION OF AMPUTATION STUMP/OPEN WOUND TECHNIQUE: 2 views of the femur were acquired. COMPARISON: None. FINDINGS: Bones: No fractures or dislocations. No suspicious bony lesions. Presumed chronic hip dysplasia although the evaluation given advanced arthritic changes at this time Severe left hip degeneration with femoral head deformity, and uncovering. Diffuse osteopenia post surgical change related to amputation of the left lower extremity the level of the distal femoral diaphysis. No definite focal osseous destruction however diffuse decreased bone mineralization limits study sensitivity. Soft tissues: No suspicious soft tissue calcifications or masses. IMPRESSION: Postsurgical changes as above related to resection of the distal left femur. No definite focal osseous destruction however marked osteopenia which limits evaluation for lytic changes. As clinically warranted, further evaluation could be performed with triple phase bone scan or contrast-enhanced MRI. Alternatively, continued short interval serial radiographic surveillance could be performed Severe left hip degeneration, with background dysplastic appearance Dictated by: Moustapha Tripathi M.D. on 09/27/2018 at 10:30 Approved by: Moustapha Tripathi M.D. on 09/27/2018 at 11:00
== END ==
PROVIDERS: Family Provider Internal Medicine; PCP Internal Medicine; Visit Provider Family Medicine
DX: T87.44 Infection of amputation stump, left lower extremity (principal); T87.89 Other complications of amputation stump; S71.102A Unspecified open wound, left thigh, initial encounter; M16.12 Unilateral primary osteoarthritis, left hip
CPT/HCPCS: 73552

== ENCOUNTER → 2018-10-03 14:10 | Outpatient (CLI) | payer MEDICARE, SELFPAY ==
[2018-02-08 08:32] VITALS: BMI 12.4
[2018-02-09 09:02] VITALS: PULSE 60; RESP 19; O2SAT 98
== END ==
PROVIDERS: Family Provider Internal Medicine; PCP Internal Medicine; Visit Provider Family Medicine
DX: S71.102A Unspecified open wound, left thigh, initial encounter (principal); T87.89 Other complications of amputation stump; I70.231 Atherosclerosis of native arteries of right leg with ulceration of thigh
CPT/HCPCS: 11042; 87070; 87075; 87077; 87205

== ENCOUNTER 2018-10-07 10:14 | Emergency (ER) | payer MEDICARE, SELFPAY ==
[2018-02-08 08:32] VITALS: BMI 12.4
[2018-02-09 09:02] VITALS: PULSE 60; RESP 19; O2SAT 98
[2018-10-07 10:22] VITALS: BP 138/78; PULSE 74; RESP 14; TEMP 36.6; O2SAT 96
--- NOTE | 2018-10-07 10:38 | ED_ITS ---
HPI - Fall General Chief Complaint: Fall Stated Complaint: FALL Time Seen by Provider: 10/07/18 10:25 Source: patient and old records reviewed Mode of arrival: ambulatory Limitations: no limitations History of Present Illness HPI Narrative: this a 63-year-old female who comes to the emergency department with complaint of ground level fall and left-sided chest pain. Patient states that she fell Sunday. She states she was sleeping in bed when she landed on the floor with a thump. She states she did hit her head, she denies any neck pain. She does have some mild mid back pain. Patient states that her main concern is left-sided chest pain which started the next morning after her fall. It is continued and she has not been able to control her pain at home with her usual Percocet. Patient denies any other injuries. She does have an open wound on her left distal and/stump of her above knee amputation. She is following with wound care and she is on clindamycin for this. She states it does not seem to be worsening she has not seen any signs of new infection. Patient denies any headache, no neck pain, no weakness, numbness, no shortness of breath. She does have pain if she twists or side bends, she has pain if she takes a very deep breath. Related Data Home Medications Medication Instructions Recorded Confirmed phenytoin sodium extended 200 mg PO DAILY #0 05/30/17 10/07/18 [Dilantin Extended] albuterol sulfate [Ventolin HFA] 1 - 2 puff INHALATION Q4H PRN 10/07/18 10/07/18 atorvastatin [Lipitor] 20 mg PO BEDTIME 10/07/18 10/07/18 escitalopram oxalate [Lexapro] 20 mg PO DAILY 10/07/18 10/07/18 fluticasone [Flovent HFA] 1 puff INHALATION BID 10/07/18 10/07/18 gabapentin 100 mg PO BID 10/07/18 10/07/18 gabapentin 300 mg PO BEDTIME 10/07/18 10/07/18 levalbuterol tartrate [Xopenex HFA] 1 puff INHALATION Q4H PRN 10/07/18 10/07/18 metoprolol succinate 50 mg PO DAILY 10/07/18 10/07/18 oxycodone-acetaminophen [Percocet] 1 tab PO BID PRN 10/07/18 10/07/18 Previous Rx's Medication Instructions Recorded clopidogrel [Plavix] 75 mg PO DAILY #30 tab 01/25/18 oxycodone 5 mg PO Q4-6H PRN #20 tab 10/07/18 Allergies Allergy/AdvReac Type Severity Reaction Status Date / Time Penicillins [PENICILLINS] Allergy Unknown RASH Verified 01/30/18 08:41 Sulfa (Sulfonamide AdvReac Intermediate PRICKLY Verified 10/07/18 10:26 Antibiotics) FEELING ON [SULFA (SULFONAMIDE HER HEAD ANTIBIOTICS)] Review of Systems Review of Systems ROS Unobtainable: All systems reviewed & are unremarkable except as noted in HPI and below Constitutional Denies chills, Denies fever(s), Denies frequent falls, Denies headache(s), Denies lethargy and Denies weakness ENT Ears, Nose, Mouth, and Throat: Denies headache(s) and Denies neck pain Cardiovascular Reports chest pain, Denies diaphoresis, Denies syncope, Denies leg edema, Denies radiating jaw, neck or arm pain, Denies dyspnea and Denies dyspnea on exertion Respiratory Denies change in phlegm color, Denies chest congestion, Denies cough, Denies hemoptysis, Reports pain on inspiration, Reports pain with cough, Denies dyspnea , Denies dyspnea on exertion and Denies wheezing Gastrointestinal Gastrointestinal: Denies abdominal pain, Denies change in bowel habits, Denies diarrhea, Denies nausea and Denies vomiting Genitourinary Denies hematuria, Denies flank pain, Denies urinary incontinence and Denies urinary urgency Musculoskeletal Reports back pain, Denies limited range of motion, Denies neck pain, Denies numbness, Denies radiating pain into limb and Reports other (chronic wound at end of AKA on left.) Integumentary/Breasts Reports non-healing lesions, Denies erythema and Denies unusual bruising Neurologic Denies syncope, Denies frequent falls, Denies headache(s), Denies numbness and Denies weakness Allergic/Immunologic Denies wheezing Exam Narrative Exam Narrative: GEN: Patient appears in Moderate distress. HEAD: No evidence of trauma, no raccoon/Salvador sign. NECK: Nontender, painless range of motion, trachea midline negative Nexus criteria, there is no midline tenderness, distracting injury, altered mental status, neuro deficit, recent EtOH. EYES: PERRLA, EOMI ENT: External inspection normal, trachea is midline, TM's are normal no hemotypanum, Nares are clear, no septal hematoma, no dental or oral injury, airway is normal and with normal occlusion, No bony tenderness RESP: Chest is nontender and has symmetric movement, no ecchymosis, breath sounds are normal no crackles, wheezes or rales CVS: Heart sounds are normal, no murmur noted, No JVD. ABG/GI: Nontender, soft, normal bowel sounds, no distention, no organomegaly, pelvic rock is negative NEURO: Oriented AOx3, neuro is grossly intact, sensation and motor is normal all 4 extremities moving, cranial nerves II through XII are intact, GCS is 15 PSYCH: Normal mood and affect SKIN: patient has some chronic open wound over the distal end of her left lower extremityAKA tissue underneath is pink, there is no drainage, there is no purulent fluid or foul odor, surrounding area edge it has pink granulation tissue but no signs of erythema or cellulitis, warm and dry, no crepitus and without decubitus BACK: No CVA tenderness, mild vertebral tenderness at the T10/11 region, no step-off's, no crepitus EXT: Atraumatic, hips are nontender, no pedal edema, normal color and temperature, normal range of motion of extremities with normal tendon exam, 2+ pulses in all four extremities Initial Vital Signs Initial Vital Signs: Vital Signs Temperature 97.8 F 10/07/18 10:22 Pulse Rate 74 10/07/18 10:22 Respiratory Rate 14 10/07/18 10:22 Blood Pressure 138/78 10/07/18 10:22 Pulse Oximetry 96 10/07/18 10:22 [facility] Medical History COPD (chronic obstructive pulmonary disease) (Acute) Amputation of left lower extremity above knee with complication (Chronic) Hypertension (Chronic) NSTEMI (non-ST elevated myocardial infarction) (Chronic) Peripheral arterial disease (Chronic) 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) Stroke (Chronic) Tobacco abuse (Chronic) Cellulitis and abscess of foot (Resolved) Social History household members: significant other lives independently: Yes caregiver/support person: Yes other: She says she quit smoking today Smoking Status: Current every day smoker Course Orders Ordered: ED Orders 10/07/18 10:36 XR ribs RT min 3V w CXR1V Stat XR thoracic spine 3V Stat Discontinued Medications Oxycodone HCl (Percolone) 5 mg PO NOW ONE Stop: 10/07/18 11:48 Last Admin: 10/07/18 12:01 Dose: 5 mg Vital Signs - 8 hr 10/07/18 10:22 10/07/18 12:03 Temperature 97.8 F 98.5 F Pulse Rate 74 72 Respiratory Rate 14 16 Blood Pressure 138/78 Blood Pressure [Right Arm] 101/60 Pulse Oximetry 96 95 MDM - Fall Imaging Data thoracic spine: Radiologist's impression: [address] [address] XRay Report Signed Patient: Evie Malone#: [id number] : 5Acct:[id number] Age/Sex: 63 / FDate of Service: 10/07/18 Loc: ED Accession Number: [id number] Procedure: XR thoracic spine 3V Ordering Provider: Lyudmila White D.O. PROCEDURE: XR THORACIC SPINE 3V INDICATIONS: back pain T11 range TECHNIQUE: 3 views of the thoracic spine were acquired. COMPARISON: [facility], CT, THORAX WITH CONTRAST, 05/20/2012, 13:07. [facility], CR, XR RIBS RT MIN 3V W CXR 1V, 10/07/2018, 10:48. [facility], CR , XR CHEST 1V, 02/11/2018, 13:13. FINDINGS: Bones: No acute appearing fractures or dislocations. There is a mild anterior wedge deformity seen of the approximate T6 level, yet without acute features. No suspicious bony lesions. 12 pairs of ribs are noted, and appear intact where visualized. Dextroconvex scoliosis is seen. Age-appropriate bony degenerative changes are seen. Postoperative change of the right shoulder can be seen. Soft tissues: No paravertebral stripe thickening. IMPRESSION: No acute fractures are seen. Dextroconvex scoliosis. Dictated by: Armand Nunez M.D. on 10/07/2018 at 10:13 Approved by: Armand Nunez M.D. on 10/07/2018 at 10:15 ribs/CXR: Radiologist's impression: [address] [address] XRay Report Signed Patient: Evie MaloneMR#: [id number] : 5Acct:[id number] Age/Sex: 63 / FDate of Service: 10/07/18 Loc: ED Accession Number: [id number] Procedure: XR ribs RT min 3V w CXR1V Ordering Provider: Lyudmila White D.O. PROCEDURE: XR RIBS RT MIN 3V W CXR 1V INDICATIONS: right rib pain, rib 10 lateral angle, fall sunday TECHNIQUE: 3 views of the left ribs were acquired, along with a single view chest. COMPARISON: [facility], CR, XR CHEST 1V, 02/11/2018, 13:13. [facility], CR, XR THORACIC SPINE 3V, 10/07/2018, 10:48. FINDINGS: Surgical changes and devices: Postoperative change of the right shoulder can be seen. Bones and chest wall: A marker is placed upon the area of clinical concern. Within this region, no displaced rib fracture or other significant rib abnormality can be seen. No rib fractures are seen elsewhere. No suspicious lytic or blastic lesions are seen. Age-appropriate bony degenerative changes are seen. Overlying soft tissues appear unremarkable. Lungs and pleura: No pleural effusions or pneumothorax. Lungs appear clear. Mediastinum: The cardiac contours are within normal limits. The aorta demonstrates calcification and tortuosity. IMPRESSION: No displaced fractures can be seen. Please note that the left ribs were imaged, but the right ribs were ordered. Please correlate with the true patient history. If the right ribs need to be imaged, please refer this patient back to radiology for additional imaging, which will be performed at no additional charge. Postoperative and degenerative changes are seen. Dictated by: Armand Nunez M.D. on 10/07/2018 at 10:10 Approved by: Armand Nunez M.D. on 10/07/2018 at 10:12 MDM Narrative Medical decision making narrative: Discussed findings with patient. I suspect she does have a rib fracture that is nondisplaced she has point tenderness. Patient also has a wedge deformity on her thoracic spine this isn' t the exact location she hurts but is in the general vicinity. She has known osteoporosis and continues to smoke. We discussed her x-ray imaging of her spine. She has a wedge deformity, unclear if acute or chronic. Patient states she had a prior fall that may have been the cause. She is not having extreme symptoms at this time. Discussed adding oxycodone to her normal regimen of pain medications. Patient will need to follow up for any additional from her primary care. Also given an incentive spirometer and teaching by respiratory therapist to prevent pneumonia. 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 Take medication as prescribed this medication can make you sleepy so do not drive, perform hazards activities or make any major decisions while taking this medication. You may take 1 tablet of oxycodone 5mg every 4-6 hours as needed along with your usual percocet 4 times daily. Use incentive spirometer once hourly while awake until cleared by your physician. Return to the emergency department for rapidly worsening symptoms, new shortness of breath, passing out, persistent vomiting, coughing up blood, new weakness, numbness, new loss of bowel or bladder control or other new or concerning symptoms. Prescriptions: New oxycodone 5 mg tablet 5 mg PO Q4-6H PRN (Reason: pain) Qty: 20 RF: 0 No Action phenytoin sodium extended [Dilantin Extended] 100 MG capsule 200 mg PO DAILY Qty: 0 RF: 0 clopidogrel [Plavix] 75 mg Tablet 75 mg PO DAILY Qty: 30 RF: 0 metoprolol succinate 50 mg Tablet Extended Release 24 Hr 50 mg PO DAILY RF: 0 oxycodone-acetaminophen [Percocet] 5-325 mg Tablet 1 tab PO BID PRN (Reason: pain) RF: 0 fluticasone [Flovent HFA] 220 mcg/actuation Hfa Aerosol Inhaler 1 puff INHALATION BID RF: 0 gabapentin 100 mg Capsule 100 mg PO BID RF: 0 gabapentin 100 mg Capsule 300 mg PO BEDTIME RF: 0 albuterol sulfate [Ventolin HFA] 90 mcg/actuation Hfa Aerosol Inhaler 1 - 2 puff INHALATION Q4H PRN (Reason: Shortness Of Breath) RF: 0 escitalopram oxalate [Lexapro] 20 mg Tablet 20 mg PO DAILY RF: 0 levalbuterol tartrate [Xopenex HFA] 45 mcg/actuation Hfa Aerosol Inhaler 1 puff INHALATION Q4H PRN (Reason: Shortness Of Breath) RF: 0 atorvastatin [Lipitor] 20 MG tablet 20 mg PO BEDTIME RF: 0
--- NOTE | 2018-10-07 10:45 | PC.NURSE ---
GILLIS equally to baseline. No acute distress. Denies all other complaints.
--- NOTE | 2018-10-07 11:17 | PC.NURSE ---
irrigated and cleansed wound on left leg wound at amputation site. Pt states she is being treated at the wound clinic and she is to just irrigate and place a bandage on. Would appears clean and free of debris. Applied nonstick dressing, curlex and tube stocking to protect. Pt tolerated well. informed of wait for xray results.
[2018-10-07] MEDS: OXYCODONE IR 5 MG TABLET PO (12:01)
[2018-10-07 12:03] VITALS: BP 101/60; PULSE 72; RESP 16; TEMP 36.9; O2SAT 95
== END 2018-10-07 12:16 | disposition home or self-care (01) ==
PROVIDERS: Emergency Provider Emergency Medicine; Family Provider Internal Medicine; PCP Internal Medicine
DX: S22.31XA Fracture of one rib, right side, initial encounter for closed fracture (principal); M43.9 Deforming dorsopathy, unspecified; W06.XXXA Fall from bed, initial encounter
CPT/HCPCS: 71101; 72072; 99283

== ENCOUNTER → 2018-10-10 14:17 | Outpatient (CLI) | payer MEDICARE, SELFPAY ==
[2018-02-08 08:32] VITALS: BMI 12.4
[2018-02-09 09:02] VITALS: PULSE 60; RESP 19; O2SAT 98
== END ==
PROVIDERS: Family Provider Internal Medicine; PCP Internal Medicine; Visit Provider Family Medicine
DX: S71.102A Unspecified open wound, left thigh, initial encounter (principal); T87.89 Other complications of amputation stump
CPT/HCPCS: 97597

== ENCOUNTER → 2018-10-17 13:38 | Outpatient (CLI) | payer MEDICARE, SELFPAY ==
[2018-02-08 08:32] VITALS: BMI 12.4
[2018-02-09 09:02] VITALS: PULSE 60; RESP 19; O2SAT 98
== END ==
PROVIDERS: Family Provider Internal Medicine; PCP Internal Medicine; Visit Provider Family Medicine

== ENCOUNTER → 2019-06-26 18:50 | Outpatient (ROUT) | payer MEDICARE, SELFPAY ==
[2018-02-08 08:32] VITALS: BMI 12.4
[2018-02-09 09:02] VITALS: PULSE 60; RESP 19; O2SAT 98
[2019-06-26 19:07] LABS: Alanine Aminotransferase 22 IU/L (9-52); Aspartate Aminotransferase 27 IU/L (14-36); Blood Urea Nitrogen 12 mg/dL (7-17); Calcium 9.6 mg/dL (8.4-10.2); Carbon Dioxide 31 mmol/L (22-32); Chloride 97 mmol/L (98-107); Cholesterol 149 mg/dL (140-199); Estimated Glomerular Filt Rate > 60.0 mL/min (>60); Glucose 81 mg/dL (80-110); HDL Cholesterol 57 mg/dL (40-60); HEMOLYSIS < 15 (0-50); LDL Cholesterol Calculated 72 mg/dL (<100); Potassium 4.5 mmol/L (3.4-5.1); Sodium 137 mmol/L (137-145); Triglycerides 102 mg/dL (35-150)
== END ==
PROVIDERS: Family Provider Internal Medicine; PCP Internal Medicine; Visit Provider Internal Medicine
DX: I10 Essential (primary) hypertension (principal); E78.5 Hyperlipidemia, unspecified
CPT/HCPCS: 80048; 80061; 84450; 84460

== ENCOUNTER 2020-03-03 14:27 | Emergency (ER) | payer MEDICARE, SELFPAY ==
[2018-02-08 08:32] VITALS: BMI 12.4
[2018-02-09 09:02] VITALS: PULSE 60; RESP 19; O2SAT 98
[2020-03-03 14:31] VITALS: PULSE 81; RESP 22; TEMP 36.5; O2SAT 96
--- NOTE | 2020-03-03 14:59 | ED_ITS ---
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 She describes it as explosive and is frequent ly not able to negotiate her way to the bathroom. She states she has some general GI distress and cramping prior to the diarrhea. No specific nausea or vomiting. She has been able to drink fluids but has not had much of an appetite. She denies fevers, chest pain, dizziness or syncope. She states that her cough is unchanged from her usual smoker's cough as is her usual dyspnea. She denies any specific exposures recently Related Data Home Medications Medication Instructions Recorded Confirmed phenytoin sodium extended 200 mg PO DAILY #0 05/30/17 10/07/18 [Dilantin Extended] albuterol sulfate [Ventolin HFA] 1 - 2 puff INHALATION Q4H PRN 10/07/18 10/07/18 atorvastatin [Lipitor] 20 mg PO BEDTIME 10/07/18 10/07/18 escitalopram oxalate [Lexapro] 20 mg PO DAILY 10/07/18 10/07/18 fluticasone propionate [Flovent 1 puff INHALATION BID 10/07/18 10/07/18 HFA] gabapentin 100 mg PO BID 10/07/18 10/07/18 gabapentin 300 mg PO BEDTIME 10/07/18 10/07/18 levalbuterol tartrate [Xopenex HFA] 1 puff INHALATION Q4H PRN 10/07/18 10/07/18 metoprolol succinate 50 mg PO DAILY 10/07/18 10/07/18 oxycodone-acetaminophen [Percocet] 1 tab PO BID PRN 10/07/18 10/07/18 Previous Rx's Medication Instructions Recorded clopidogrel [Plavix] 75 mg PO DAILY #30 tab 01/25/18 oxycodone 5 mg PO Q4-6H PRN #20 tab 10/07/18 Allergies Allergy/AdvReac Type Severity Reaction Status Date / Time Penicillins [PENICILLINS] Allergy Unknown RASH Verified 01/30/18 08:41 Sulfa (Sulfonamide AdvReac Intermediate PRICKLY Verified 10/07/18 10:26 Antibiotics) FEELING ON [SULFA (SULFONAMIDE HER HEAD ANTIBIOTICS)] Review of Systems Review of Systems Narrative: Pertinent positive and negative findings as per HPI Remainder of review of systems is otherwise unremarkable for Constitutional: Fevers, chills, weakness ENT: No sore throat, neck pain, ear pain CV: Chest pain, palpitations, dyspnea on exertion : Dysuria, hematuria, flank pain MS: Muscle weakness, numbness, joint swelling or warmth Patient History Medical History Amputation of left lower extremity above knee with complication (Chronic) Cellulitis and abscess of foot (Resolved) COPD (chronic obstructive pulmonary disease) (Acute) Hypertension (Chronic) NSTEMI (non-ST elevated myocardial infarction) (Chronic) Peripheral arterial disease (Chronic) 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) Stroke (Chronic) Tobacco abuse (Chronic) Family History Father No problems noted. Mother No problems noted. Social History household members: significant other lives independently: Yes caregiver/support person: Yes other: She says she quit smoking today Smoking Status: Current every day smoker Smoking Status: Current every day smoker alcohol intake frequency: a few times a month Substance Use Type: marijuana Exam Narrative Exam Narrative: General: Frail and cachectic, smelling of tobacco smoke. Able to give a complete history. HEENT: Moist mucous membranes, normal sclera with reactive pupils, Respiratory: Lungs with scattered might wheezing in all lung rodriguez but no rales no rhonchi. Full and symmetrical air movement Cardiac: Regular rate and rhythm no murmurs no bruits Abdomen: Soft nontender, hyperactive bowel tones, no flank pain Skin: Warm and dry, no rashes Neurologic: Grossly neurologically intact with no obvious asymmetries or abnormalities Extremities: Surgically absent left lower extremity mid thigh, no edema right side. Psych: Cooperative, appropriate insight and affect Initial Vital Signs Initial Vital Signs: Vital Signs Temperature 97.7 F 03/03/20 14:31 Pulse Rate 81 03/03/20 14:31 Respiratory Rate 22 03/03/20 14:31 Pulse Oximetry 96 03/03/20 14:31 Course Orders Ordered: ED Orders 03/03/20 14:45 Complete Blood Count AUTO DIFF Stat Comprehensive Metabolic Panel Stat 03/03/20 15:15 GI Panel (Film Array) Stat Discontinued Medications Sodium Chloride (Normal Saline 0.9%) 500 mls @ 1,000 mls/hr IV BOLUS ONE Stop: 03/03/20 15:22 Last Infusion: 03/03/20 16:29 Dose: 0 mls/hr Documented by: Admin: 03/03/20 15:06 Dose: 1,000 mls/hr Documented by: ALISA Sodium Chloride (Normal Saline 0.9%) 1,000 mls @ 1,000 mls/hr IV BOLUS ONE Stop: 03/03/20 16:13 Last Infusion: 03/03/20 16:30 Dose: 0 mls/hr Documented by: Admin: 03/03/20 15:28 Dose: 1,000 mls/hr Documented by: AYDEN Ondansetron HCl (Zofran) 4 mg IV NOW ONE Stop: 03/03/20 15:15 Last Admin: 03/03/20 15:29 Dose: 4 mg Documented by: AYDEN Vital Signs Vital signs: Vital Signs - 8 hr 03/03/20 14:31 03/03/20 16:58 Temperature 97.7 F Pulse Rate 81 73 Respiratory Rate 22 17 Blood Pressure [Right Arm] 106/58 L Pulse Oximetry 96 96 MDM - Nausea/Vomiting/Diarrhea Lab Data Result diagrams: 03/03/20 14:45 03/03/20 14:45 Labs: Lab Results 03/03/20 03/03/20 Range/Units 14:45 14:45 WBC 12.0 H (4.5-11.0) X10^3/uL RBC 4.86 (4.0-5.2) X10^6/uL Hgb 15.2 (12.0-16.0) g/dL Hct 44.1 (36-46) % MCV 90.8 (80-100) fL MCH 31.3 (26-34) PG MCHC 34.4 (30-36) % RDW 14.0 (11.6-14.8) % Plt Count 392 (150-400) X10^3/uL Neut % (Auto) 71.1 (50-75) % Lymph % (Auto) 20.7 L (25-40) % [place] % (Auto) 6.3 (3-14) % Eos % (Auto) 1.0 L (2-4) % Baso % (Auto) 0.9 (0-2) % Neut # (Auto) 8500 H (5068-3411) /uL Lymph # (Auto) 2500 (2677-3997) /uL [place] # (Auto) 800 (0-900) /uL Eos # (Auto) 100 (0-450) /uL Baso # (Auto) 100 (0-100) /uL Sodium 138 (137-145) mmol/L Potassium 4.7 (3.4-5.1) mmol/L Chloride 108 H (98-107) mmol/L Carbon Dioxide 23 (22-32) mmol/L BUN 8 (7-17) mg/dL Creatinine 0.47 L (0.52-1.04) mg/dL Estimated GFR > 60.0 (>60) mL/min BUN/Creatinine Ratio 17.0 (6-22) Glucose 109 (80-110) mg/dL Calcium 9.2 (8.4-10.2) mg/dL Total Bilirubin 0.6 (0.2-1.3) mg/dL AST 42 H (14-36) IU/L ALT 17 (<35) IU/L Alkaline Phosphatase 85 (38-126) U/L Total Protein 7.0 (6.3-8.2) g/dL Albumin 4.1 (3.5-5.0) g/dL Globulin 2.9 (1.7-4.1) g/dL Albumin/Globulin Ratio 1.4 (1.0-2.8) Discharge Plan Departure Patient Disposition: Home Clinical Impression: Diarrhea Qualifiers: Diarrhea type: unspecified type Qualified Code(s): R19.7 - Diarrhea, unspecified Discharge Date/Time: 03/03/20 18:03 Instructions: Diarrhea Activity Restrictions/Additional Instructions: Thank you for coming in today Your blood work was very reassuring. Your potassium levels and kidney function were very appropriate. We were unable to collect a stool sample to send down to the lab to see if you have a diarrhea type that needs antibiotics or additional treatment. For the time being, I think it is safe for you to go home. The majority of diarrhea is self-limited and you should be better in the next day or 2. If not, you do need to return to the emergency room for further evaluation. I wish you well. Prescriptions: No Action phenytoin sodium extended [Dilantin Extended] 100 MG capsule 200 mg PO DAILY Qty: 0 RF: 0 clopidogrel [Plavix] 75 mg Tablet 75 mg PO DAILY Qty: 30 RF: 0 oxycodone 5 mg tablet 5 mg PO Q4-6H PRN (Reason: pain) Qty: 20 RF: 0 metoprolol succinate 50 mg Tablet Extended Release 24 Hr 50 mg PO DAILY RF: 0 oxycodone-acetaminophen [Percocet] 5-325 mg Tablet 1 tab PO BID PRN (Reason: pain) RF: 0 fluticasone propionate [Flovent HFA] 220 mcg/actuation Hfa Aerosol Inhaler 1 puff INHALATION BID RF: 0 gabapentin 100 mg Capsule 100 mg PO BID RF: 0 gabapentin 100 mg Capsule 300 mg PO BEDTIME RF: 0 albuterol sulfate [Ventolin HFA] 90 mcg/actuation Hfa Aerosol Inhaler 1 - 2 puff INHALATION Q4H PRN (Reason: Shortness Of Breath) RF: 0 escitalopram oxalate [Lexapro] 20 mg Tablet 20 mg PO DAILY RF: 0 levalbuterol tartrate [Xopenex HFA] 45 mcg/actuation Hfa Aerosol Inhaler 1 puff INHALATION Q4H PRN (Reason: Shortness Of Breath) RF: 0 atorvastatin [Lipitor] 20 MG tablet 20 mg PO BEDTIME RF: 0 Referrals: Rhonda Iverson MD [Primary Care Provider] -
[2020-03-03 15:01] LABS: Add Manual Diff / Slide Review NO; Basophils Absolute Auto 100 /uL (0-100); Basophils Percent Auto 0.9 % (0-2); Eosinophils Absolute Auto 100 /uL (0-450); Hematocrit 44.1 % (36-46); Hemoglobin 15.2 g/dL (12.0-16.0); Lymphocytes Absolute Auto 2500 /uL (1100-4500); Lymphocytes Percent Auto 20.7 % (25-40); Mean Corpuscular HGB Conc 34.4 % (30-36); Mean Corpuscular Hemoglobin 31.3 PG (26-34); Mean Corpuscular Volume 90.8 fL (80-100); Monocytes Absolute Auto 800 /uL (0-900); Monocytes Percent Auto 6.3 % (3-14); Neutrophils Absolute Auto 8500 /uL (1500-7000); Neutrophils Percent Auto 71.1 % (50-75); Platelet Count 392 X10^3/uL (150-400); Red Blood Cell Count 4.86 X10^6/uL (4.0-5.2)
[2020-03-03] MEDS: SODIUM CHLORIDE 0.9% 500 ML 1000 ML IV (15:06)
[2020-03-03 15:08] LABS: Alanine Aminotransferase 17 IU/L (<35); Albumin 4.1 g/dL (3.5-5.0); Albumin Globulin Ratio 1.4 (1.0-2.8); Alkaline Phosphatase 85 U/L (38-126); Aspartate Aminotransferase 42 IU/L (14-36); Bilirubin Total 0.6 mg/dL (0.2-1.3); Blood Urea Nitrogen 8 mg/dL (7-17); Calcium 9.2 mg/dL (8.4-10.2); Carbon Dioxide 23 mmol/L (22-32); Chloride 108 mmol/L (98-107); Estimated Glomerular Filt Rate > 60.0 mL/min (>60); Globulin 2.9 g/dL (1.7-4.1); Glucose 109 mg/dL (80-110); HEMOLYSIS 97 (0-50); Potassium 4.7 mmol/L (3.4-5.1); Sodium 138 mmol/L (137-145)
[2020-03-03] MEDS: SODIUM CHLORIDE 0.9% 1,000 ML 1000 ML IV (15:28)
[2020-03-03] MEDS: ONDANSETRON 4 MG/2 ML INJ IV (15:29)
[2020-03-03 16:58] VITALS: BP 106/58; PULSE 73; RESP 17; O2SAT 96
--- NOTE | 2020-03-03 18:00 | PC.NURSE ---
pt trying to leave, told her i'd have to remove the iv access first. pt agreed.
== END 2020-03-03 18:03 | disposition home or self-care (01) ==
PROVIDERS: Emergency Provider Emergency Medicine; Family Provider Internal Medicine; PCP Internal Medicine
DX: R19.7 Diarrhea, unspecified (principal)
CPT/HCPCS: 36415; 80053; 85025; 96361; 96374; 99284; J2405